=== PATIENT | female | born 1960 | race Caucasian/White ===

== ENCOUNTER → 2022-05-27 | Outpatient (CLI) | payer MEDICARE, SELFPAY | END | disposition home or self-care (01) | LOC: LABSPEC 10:24 | PROVIDERS: PCP Internal Medicine; Referring Provider Internal Medicine; Visit Provider Internal Medicine | DX: R05.9 Cough, unspecified (principal) | CPT/HCPCS: 87635; U0003; U0005 ==

== ENCOUNTER → 2022-06-02 | Outpatient (CLI) | payer MEDICARE, SELFPAY ==
--- NOTE | 2022-06-02 18:42 | CT_ITS ---
STUDY: LOW DOSE CT LUNG CANCER SCREENING REASON FOR EXAM: Female, 61 years old. Screening for lung cancer. RADIATION DOSAGE (If Supplied By Facility): CTDIvol = ( 2.01 ) mGy, DLP = ( 73.99 ) mGycm TECHNIQUE: No contrast was administered. Low dose technique was utilized (average mAS-38 and kVp 120). 1.25 mm axial source images with a slice interval of 1.25-mm were reconstructed in lung windows. 2.5 mm axial source images with a slice interval of 2.5-mm were reconstructed in lung windows. 5.0 mm axial source images with a slice interval of 5.0-mm were reconstructed in soft tissue windows. COMPARISON: None. NODULES: Nodule #: 1 Density: Ground glass Lung location: Right upper lobe: 0 point cm from pleura Location in series: Series Number: 2 Image: 1 Size - D1 x D2 mm: 5 x 5 mm: 5 mL average diameter Margin: Ill-defined Shape: Rounded Calcification: No Fat: No Temporal comparison: None Total lung nodules (excluding granulomas): 1 Emphysema: Diffuse emphysematous changes throughout the lungs. Endobronchial lesion: No Aorta: Normal CORONARY ARTERIES: Coronary artery calcification none Heart: Normal Pulmonary artery: Normal Mediastinal nodes: None Other chest and abdominal findings: Degenerative change of the thoracic spine. CT/Low Dose CT Lung Screening IMPRESSION: Lung-RADS category 2 - Continue annual screening with LDCT in 12 months. IMPORTANT NOTES FOR USE: ACR Lung-RADS Version 1.1 Assessment Categories Release Date: 2018 Category: Coded 0-4 bases on nodule(s) with highest degree of suspicion. Negative screen is defined as categories 1 and 2; a positive screen is defined as categories 3 and 4. Category 3 and 4A nodules that are unchanged on interval CT should be coded as category 2, and individuals returned to screening in 12 months. Category 4X: Category 3 or 4 nodules with additional imaging findings that increase the suspicion of lung cancer, such as spiculation, GGN that doubles in size in 1 year, enlarged lymph notes, etc. Category Modifiers: S (significant finding unrelated to lung cancer) Electronically Signed: Seven Ortiz DO at 23:04 EDT Reading Location ID and State: [facility] Tel [phone], Service support ,
== END | disposition home or self-care (01) ==
PROVIDERS: PCP Internal Medicine; Visit Provider Internal Medicine
DX: Z12.2 Encounter for screening for malignant neoplasm of respiratory organs (principal); Z87.891 Personal history of nicotine dependence
CPT/HCPCS: 71271

== ENCOUNTER → 2022-06-20 | Outpatient (CLI) | payer MEDICARE, SELFPAY ==
[2022-06-20 11:55] LABS: Absolute Lymphocyte Count 1.46 X10^3/uL (0.83-4.51); Absolute Neutrophil Count 1.6 X10^3/uL (2.0-7.7); Basophil# 0.04 X10^3/uL; Basophil% 1.2 % (0-1); Eosinophil# 0.04 X10^3/uL; Eosinophils% 1.2 % (0-5); Hematocrit 39.6 % (37-47); Lymphocyte # 1.46 X10^3/ul (0.83-4.51); Lymphocyte % 42.3 % (19-41); Mean Corp Hgb Conc 32.8 g/dL (32-36); Mean Corpuscular Hgb 31.6 pg (27.0-32.0); Mean Corpuscular Volume 96.4 fL (81-99); Mean Platelet Vol. 10.5 fl (6.2-12.0); Monocyte% 8.7 % (0-10); NRBC Flagged by Analyzer 0 % (0-5); Neutrophil % 46.3 % (47-70); Platelet Count 179 K/mm3 (150-450); RBC Distribution Width CV 12.8 % (11.6-14.6); RBC Distribution Width SD 45.4 fl (35.1-43.9); Red Blood Count 4.11 M/mm3 (4.2-5.4); White Blood Count 3.5 K/mm3 (4.4-11.0)
[2022-06-20 12:25] LABS: ALB/GLOB Ratio 1.2 RATIO (0.9-2.4); AST(SGOT) 13 U/L (15-37); Alanine Aminotransfer ALT/SGPT 21 U/L (13-56); Albumin, Serum 3.5 g/dL (3.2-5.0); Alkaline Phosphatase 72 U/L (45-117); Anion Gap 5 (5-15); BUN 14 mg/dL (7-18); BUN/Creat Ratio 20.7 RATIO (10-20); Calcium,Total 8.8 mg/dL (8.5-10.1); Chloride 105 mmol/L (98-107); Cholesterol 274 mg/dL (200); Creatinine, Serum 0.68 mg/dL (0.55-1.02); EST Glomerular Filtration Rate 94 mL/min (>60); Est Glom Filt Rate - Afr Amer 114 mL/min (>60); Glucose 92 mg/dL (74-106); High Density Lipoprotein 134 mg/dL; Potassium 4.2 mmol/L (3.5-5.1); Protein, Total 6.5 g/dL (6.4-8.2); Sodium Level 140 mmol/L (136-145); Thyroid Stim Hormone (TSH) < 0.01 uIU/mL (0.358-3.74); Triglycerides 43 mg/dL; Very Low Density Lipoprotein 9 mg/dL (5-40)
== END | disposition home or self-care (01) ==
LOC: BIMLAB 09:23
PROVIDERS: PCP Internal Medicine; Visit Provider Internal Medicine
DX: E89.0 Postprocedural hypothyroidism (principal); F32.1 Major depressive disorder, single episode, moderate; F41.9 Anxiety disorder, unspecified
CPT/HCPCS: 36415; 80053; 80061; 84443; 85025

== ENCOUNTER → 2022-09-25 | Outpatient (CLI) | payer MEDICARE, SELFPAY ==
--- NOTE | 2022-09-25 11:58 | RAD_ITS ---
STUDY: X-RAY - LEFT FOOT CLINICAL: Female, 61 years old. Foot pain, assess for navicular stress fracture TECHNIQUE: 3 view(s) of the foot. COMPARISON: None. FINDINGS: There is an enthesophyte involving the posterior superior calcaneus at the site of insertion of the Achilles tendon. Normal visualized subtalar, talonavicular, calcaneocuboid, tarsal and tarsometatarsal articulations. There is demineralization of the metatarsi. Normal metatarsophalangeal joint of the great toe. Normal tibial and fibular sesamoid bones. Normal interphalangeal joint of the great toe. Normal phalanges of the great toe. Normal second through fifth metatarsophalangeal joints. Normal interphalangeal joints and phalanges of the lesser toes. The soft tissue structures are unremarkable. RAD/Foot min 3 Views IMPRESSION: No visualized acute fracture. If, There is concern for occult or stress fracture recommend consideration for follow-up MRI. Electronically Signed: Homa Johnson MD at 23:10 EST Reading Location ID and State: [facility] / [place] Tel , Service support ,
[2022-09-25 12:32] LABS: ALB/GLOB Ratio 1.2 RATIO (0.9-2.4); AST(SGOT) 20 U/L (15-37); Alanine Aminotransfer ALT/SGPT 24 U/L (13-56); Albumin, Serum 3.6 g/dL (3.2-5.0); Alkaline Phosphatase 69 U/L (45-117); Anion Gap 3 (5-15); BUN 8 mg/dL (7-18); BUN/Creat Ratio 12.2 RATIO (10-20); Chloride 104 mmol/L (98-107); Cholesterol 250 mg/dL (200); Creatinine, Serum 0.66 mg/dL (0.55-1.02); EST Glomerular Filtration Rate 97 mL/min (>60); Est Glom Filt Rate - Afr Amer 117 mL/min (>60); Globulin 3.1 g/dL (2.2-4.2); Glucose 90 mg/dL (74-106); High Density Lipoprotein 150 mg/dL; Potassium 4.8 mmol/L (3.5-5.1); Protein, Total 6.7 g/dL (6.4-8.2); Sodium Level 138 mmol/L (136-145); Thyroid Stim Hormone (TSH) < 0.01 uIU/mL (0.358-3.74); Triglycerides 69 mg/dL; Very Low Density Lipoprotein 14 mg/dL (5-40)
[2022-09-25 14:44] LABS: T4 Free Direct 0.86 ng/dL (0.76-1.46)
[2022-09-25 14:53] LABS: T3 Total - Triiodothyronine 0.96 ng/mL (0.6-1.81)
== END | disposition home or self-care (01) ==
PROVIDERS: PCP Internal Medicine; Referring Provider Internal Medicine; Visit Provider Internal Medicine
DX: M79.672 Pain in left foot (principal); E89.0 Postprocedural hypothyroidism; E78.2 Mixed hyperlipidemia
CPT/HCPCS: 36415; 73630; 80053; 80061; 84439; 84443; 84480

== ENCOUNTER → 2023-01-20 | Outpatient (CLI) | payer MEDICARE, SELFPAY ==
[2023-01-26 15:57] LABS: HPV APTIMA, High Risk Negative (Negative)
== END | disposition home or self-care (01) ==
LOC: LABSPEC 10:04
PROVIDERS: PCP Internal Medicine; Visit Provider Nurse Practitioner Women's Health
DX: Z12.4 Encounter for screening for malignant neoplasm of cervix (principal)
CPT/HCPCS: 87624; 88175; G0145

== ENCOUNTER → 2023-01-29 | Outpatient (CLI) | payer MEDICARE, SELFPAY ==
--- NOTE | 2023-01-29 10:13 | BI_ITS ---
MAMMOGRAPHY - BILATERAL SCREENING REASON FOR EXAM: Female, 62 years old. Routine annual screening examination. PERTINENT HISTORY: Non-contributory. History of bilateral excisional breast biopsies. TECHNIQUE: Digital bilateral breast carolyne (3D mammographic acquisition) in the CC and MLO projections. 2-D mediolateral oblique (MLO) and craniocaudad (CC) views of both breasts were obtained. CAD: Full Field Digital Mammography with Computer Added Detection was performed. COMPARISON: No comparison mammograms available at this time. If any prior films become available, an addendum to this report can be generated. FINDINGS: Breast Composition: The breasts are heterogeneously dense, which may obscure small masses. There are no dominant masses or suspicious calcifications. No other significant abnormalities are identified. BI/SCRN MAMM (CAD)W/CAROLYNE BILAT IMPRESSION: Negative screening mammogram. Yearly followup mammogram recommended. (A) ASSESSMENT CATEGORY: BIRADS Category 1: Negative. A letter regarding these results will be sent to the patient by the facility within 30 days. Approximately 10% of breast cancers are not detected by mammography. A normal mammogram should not delay biopsy of a clinically suspicious abnormality. [id number] Electronically Signed: Velasquez Burk MD at 12:21 EDT ,
--- NOTE | 2023-01-30 10:38 | PFT ---
INTRODUCTION: The patient is a 62-year-old female that presents for pulmonary function studies secondary to a diagnosis of emphysema. Respiratory therapy reported good patient effort. Bronchodilators were used during testing. INTERPRETATION: Forced expiration spirometry demonstrates no evidence of a large airways obstructive ventilatory defect. There was no significant response to aerosolized bronchodilators. Spirograms are of good quality and plateau normally. Body plethysmography was performed and revealed lung volumes to be within normal limits. Diffusing capacity by single breath CO was also within normal limits. IMPRESSION: Grossly normal pulmonary function studies.
== END | disposition home or self-care (01) ==
PROVIDERS: PCP Internal Medicine; Referring Provider Nurse Practitioner Women's Health; Visit Provider Nurse Practitioner Women's Health
DX: Z12.31 Encounter for screening mammogram for malignant neoplasm of breast (principal); J43.9 Emphysema, unspecified
CPT/HCPCS: 77063; 77067; 94060; 94726; 94729

== ENCOUNTER → 2023-03-30 | Outpatient (CLI) | payer MEDICARE, SELFPAY | END | disposition home or self-care (01) | LOC: BIMLAB 10:23 | PROVIDERS: PCP Internal Medicine; Referring Provider Internal Medicine; Visit Provider Internal Medicine | DX: E89.0 Postprocedural hypothyroidism (principal) | CPT/HCPCS: 36415; 84443 ==

== ENCOUNTER 2023-06-03 08:00 | Outpatient (RCR) | payer MEDICARE, SELFPAY ==
--- NOTE | 2023-06-03 09:00 | BH.SGPN.GN ---
Behaviors/Verbalizations/Mental Status: []Pt eye contact good, neat and casually dressed, motor activity appropriate, speech normal rate and tone, mood anxious, congruent affect, thoughts linear and intact, no evidence of delusions or hallucinations. Per pt's symptom tracker, no risks noted. Client Response/Progress/Benefit: []Pt responded well to session, new to IOP tx. Pt reports feeling nervous this morning due to starting IOP. Pt's check-in was short and pt shared that she wants to work on reducing her anxiety the most while in IOP. Pt shared she is anxious about figuring out how to schedule everything around IOP. Pt appeared to benefit from peers comments and feedback on adjusting to IOP. Pt will continue IOP tx to prevent decompensation, improve daily functioning, and reduce isolation. Narrative Note: []
--- NOTE | 2023-06-03 11:00 | BH.NA ---
Physical Data Vital Signs Pulse Rate: 51 Blood Pressure: 123/67 Height/Weight Height: 1.69 m Weight:: 68.039 kg Weight in Pounds: 150.0 lbs Current Medication Compliance Medication Compliance Do you take your medication as prescribed?: Yes Nutritional History Appetite Nutritional Instructions: Describe your appetite:: Good Additional nutritional information:: Client states she gained weight last year when she stopped smoking, and states she has lost the weight she gained. Functional Assessment Sleep Pattern Describe any problems with sleeping: Client states she sleeps about 8 hours per night with the use of Trazodone. Sensory/Communication Assess Vision Problems Do you have any vision problems?: Glasses Communication Problems Do you have difficulty understanding what people are saying?: No Medical Problems/History Respiratory Conditions Respiratory: Other (See comments) (mild emphysema) Neurological Conditions Neurological: Headaches Metabolic Conditions Metabolic: Hypothyroidism Gastrointestinal Conditions Gastrointestinal: Other (See comments) (IBS, history of a bowel obstruction) Musculoskeletal Conditions Musculoskeletal: Other (See comments) (rosacea, carpel tunnel, fibromylagia, osteopenia) Family History Family History Father Alcoholism Cancer bladder Hypertension Mother Arthritis Osteoporosis Daughter Bipolar 1 disorder Additional History Additional comments:: ADD, OCD, bipolar disorder, PTSD Surgical History Surgical History Have you had any surgeries? If so, list type and date:: Yes (sinus, thyroidectomy, breast biopsy, x2, back, LASIK, tubal) Substance Abuse Substance Abuse Please describe substance abuse in the last 30 days:: Client states she currently drinks alcohol about 2 times per week, and when she drinks she has about 2-3 glasses of wine. Client states she previously use cigarettes but quit smoking about 10 months ago. Client denies substance use. Client states she drinks 4-5 caffeinated drinks per day, usually coffee and tea. Mental Status Summary Mental Status Significant Findings/Observations on Appearance and Mood:: Client is alert and oriented x 4. Client is casually groomed with good hygiene. Client is cooperative with assessment. Client makes good eye contact. Client's voice has normal rate and volume. Client has appropriate affect. Client makes logical associations and has normal processing. Client denies delusions/hallucinations. Client states she has had some fleeting SI in the last couple of weeks, but denies SI at this time. Suicide Assessment Suicidal Ideation Are you currently or have you been suicidal in the past?: Yes Suicidal Intentional Rating Scale (SIRS): Current suicidal thoughts/No plan/Contracts for safety (fleeting SI at times, denies plan/intent) Physician Notification Past Psychiatric History MH Treatment Hx Past Psychiatric Medications:: Abilify, Seroquel, Prozac, Depakote Age of first mental health symptoms: Client states she was first on medication for depression at age 27 after her first daughter. Client states she was diagnosed as bipolar in her early 50's, but states looking back she knows she had symptoms of bipolar in her 20's. Describe (age, circumstance, etc) any past hospitalizations: 2017 and 2018 for SI. February 2022 at [facility] after her daughter had her first manic episode. Client had a suicide attempt in 1996 while on Prozac 9 years after her daughter was born. Current providers for mental health treatment (counselor, psychiatrist, case management social worker, etc.): Dr. Link. Client is currently starting care at [facility] to do EMDR. Fall Risk Assessment Age Age: 60-70 Mental Status Mental Status: Willing & able to ask for assistance when needed Physical Status Physical Status: No problems Impairments Impairments: None Elimination Elimination: Continent AND independent Gait or Balance Gait or Balance: Walks independently Hx of Falls History of falls in the past 6 months: No known history Medications/Substances Psychotropics:: Antidepressants and Antipsychotics Medications/substances used within the past 24 hours or ordered to administer: 1-2 of the medications/substances listed above Total Score Total Points:: 2 RN Summary of Impressions Impressions Recommendations Impressions: Psychiatric Issues: 1. Bipolar 1 disorder, most recent episode depression, severe without psychosis (F31.4) 2. PTSD 3. Generalized anxiety disorder 4. Rule out alcohol use disorder 5. Abnormal mouth movements, rule out tar dive dyskinesia Level of Care How do the client's current symptoms and functional deficits support need for this level of care?: Client was referred to [facility] by Dr. Link for increased anxiety and depression. Client has been living between [place] and [place], staying in [place] typically 6-8 weeks at a time and going to [place] where her and 2 grandchildren live for 2-3 weeks. Client states after her son was killed while he was having a manic episode in 2019, she wanted to be close to her remaining child (her daughter) so she started coming to [place] to stay with her. Client states she does have anxiety about going back and forth between the states, and often feels depressed while in [place] because she misses her and she is alone a lot while in [place]. Client reports some fleeting SI at times, but denies intent/plan. Client does report irritability, decreased motivation, and isolation. IOP will promote gains and prevent further decompensation while providing social support and skills training.
[2023-06-03 11:30] VITALS: BP 123/67; PULSE 51
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
--- NOTE | 2023-06-03 12:40 | BH.DR.ITP ---
Initial Treatment Plan Patient Information Visit Information: ADMISSION DATE: EXPECTED LOS: 4-6 weeks Problems/Symptoms Problem #1:: Depression Symptom:: Sadness, hopelessness, guilt, worthlessness, anhedonia, low energy, passive thoughts of , passive suicidal ideation Problem #2:: Anxiety Symptom:: Worry, rumination
--- NOTE | 2023-06-04 09:04 | BH.SGPN.GN ---
Behaviors/Verbalizations/Mental Status: [] Pt eye contact good, casually dressed, motor activity appropriate, speech normal rate and tone, mood depressed and anxious, congruent affect, thoughts linear and intact, no evidence of delusions or hallucinations. Per pt's symptom tracker, no report of SI, plan, or intent as of this date. Client Response/Progress/Benefit: [] Client responded well to session as evidenced by listening attentively to others and sharing thoughts and feelings. Client reported mental health positive as getting her vehicle fixed which has been a stressor. Additional win noted as not calling to cancel group from the day, indicating she had difficulties with feeling motivated to get here this morning. Noted that using opposite action helped her in doing so. Current stressor noted as having her meds recently be changed and discussed knowing it is a necessary change but feeling anxious it will not help. Shared openness to give it a try however. Seemed to benefit from support from peers. Client to continue IOP to continue to improve awareness of and use of healthy coping skills, maintain mood stability, and prevent decompensation. Narrative Note: []
--- NOTE | 2023-06-04 10:12 | BH.SGPN.GN ---
Behaviors/Verbalizations/Mental Status: []Pt alert and oriented, casually dressed and groomed. Eye contact good. Motor activity appropriate. Speech within normal limits. Affect flat, mood depressed. Thoughts linear, logical, no signs of hallucinations or delusions. Client Response/Progress/Benefit: []Pt was an active participant in group discussions. Attentive during psychoeducation on 4 types of conflict styles (Competing, Collaborating, Avoiding, and Accommodating). Worked with group to define conflict and identify how conflict is helpful. With peers identified barriers to addressing or managing conflict which included: not wanting to hurt others, lack of communication skills, and cognitive distortions. Pt believes they use the avoiding style the most. Pt shared that avoiding conflict often leads to internal conflict and rumination. Benefited from group due to increase insight and awareness of benefits to conflict, conflict styles, and obstacles to managing conflict. Will continue IOP tx to prevent decompensation, reduce isolation, and improve daily functioning. ? Narrative Note: []
--- NOTE | 2023-06-04 11:10 | BH.SGPN.GN ---
Behaviors/Verbalizations/Mental Status: [] Eye contact is good. Motor activity is appropriate. Appearance is casual. Speech is Appropriate. Mood is depressed. Affect is congruent. Thoughts are linear and logical. No evidence of psychosis. Client Response/Progress/Benefit: [] Pt was an active participant in group discussions and activity. Attentive during psychoeducation. Pt was engaged during the group activity and practiced conflict resolutions skills with an emphasis on stepping outside her typical conflict style. Along with peers was able to reflect on what conflict resolution skills she used during the activity. Pt chose to continue to work on the conflict resolution skill of expressing my feelings with words for the rest of the week. Benefited from practicing conflict resolution skills. Will continue in IOP to prevent decompensation, stabilize mood, increase healthy coping, and to improve functioning. Narrative Note: []
--- NOTE | 2023-06-05 09:00 | BH.SGPN.GN ---
Behaviors/Verbalizations/Mental Status: [] Pt alert and oriented, neatly dressed and groomed. Eye contact good. Motor activity appropriate. Speech within normal limits. Affect constricted, mood anxious. Thoughts linear, logical, no signs of hallucinations or delusions. Reviewed pt?s symptom tracker, no risk for suicidal ideation, plan, or intent 06/05/23 Client Response/Progress/Benefit: []Pt responded well to session, attentive and engaged. Pt reports feeling apprehensive this morning as pt has homework from her individual session to reach out to three people and pt is anxious. Pt knows that she will feel better after reaching out, but pt does not want to bother people. Pt able to reframe this thought. Pt's mental health wins today included practicing self-care last night by leaving her daughter's house instead of pushing through when pt noticed signs of a migraine. Pt also figured out a way to get to IOP today with her car getting fixed. Pt appeared to benefit from challenging perspective. Pt will continue IOP tx to prevent decompensation, improve daily functioning, and increase ability to challenge distortions. Narrative Note: []
--- NOTE | 2023-06-05 10:10 | BH.SGPN.GN ---
Behaviors/Verbalizations/Mental Status: [] Eye contact is good. Motor activity is appropriate. Appearance is casual. Speech is Appropriate. Mood is depressed. Affect is congruent. Thoughts are linear and logical. No evidence of psychosis. Client Response/Progress/Benefit: [] Pt was an active participant in group discussions. Attentive during psychoeducation. Participated in interactive discussion on types of support. Pt reports his support as violin, medications, library, her front porch, and her family. 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 Participated in experiential activity and was able to connect this activity to group topic. Benefited from increased awareness of the benefits and importance of maintaining a balanced support system. Will continue in IOP to prevent decompensation, increase healthy coping, and improve functioning. Narrative Note: []
--- NOTE | 2023-06-05 11:15 | BH.SGPN.GN ---
Behaviors/Verbalizations/Mental Status: []Client alert and oriented, casually dressed and groomed. Eye contact good. Motor activity appropriate. Speech within normal limits. Affect congruent, mood depressed and anxious. Thoughts linear, logical, no signs of hallucinations or delusions. Client Response/Progress/Benefit: [] Client was an active participant throughout AEB contributing to small group discussion, participating in the activity, and taking notes. Client provided input during discussion on the types of support our supports can provide. Able to identify the types of supports provided by current support system. Client reported gaining awareness that they could benefit from more social supports. Shared this will help to improve her mood and feel more connected/less isolated. Client identified steps to achieve this as continuing with IOP tx, finding somewhere to volunteer, and looking into local organizations. Client seemed to benefit from identifying the types of support and areas client could benefit from improving. Recommended to continue IOP tx to increase healthy coping, reduce depression, and improve overall functioning. Narrative Note: []
--- NOTE | 2023-06-09 09:00 | BH.SGPN.GN ---
Behaviors/Verbalizations/Mental Status: [] Pt alert and oriented, neatly dressed and groomed. Eye contact good. Motor activity appropriate. Speech within normal limits. Affect congruent, mood euthymic. Thoughts linear, logical, no signs of hallucinations or delusions. Reviewed pt?s symptom tracker, no risk for suicidal ideation, plan, or intent 06/09/23 Client Response/Progress/Benefit: []Pt responded well to session, attentive and engaged. Pt reports feeling challenged in a good way this morning as pt has some more goals she wants to accomplish and they give her some anxiety. Pt reports that over the weekend she completed 1/3 of her goals and pt feels good about this. Pt also looked over her IOP binder and learned about the cognitive distortions. Pt shared something clicked and pt felt like for the rest of the day she was able to reframe thoughts easily. Pt also helped her daughter reframe thoughts and her daughter was proud of pt. Pt stated she is anxious about keeping up with challenging her thoughts, but pt was receptive to feedback on being compassionate and realistic with herself. Pt appeared to benefit from reflecting on their application of coping skills. Pt will continue IOP tx to promote mood stability, reduce isolation, and improve daily functioning. Narrative Note: []
--- NOTE | 2023-06-09 10:14 | BH.SGPN.GN ---
Behaviors/Verbalizations/Mental Status: []Client alert and oriented, casually dressed and groomed. Eye contact good. Motor activity appropriate. Speech within normal limits. Affect congruent, mood depressed and anxious. Thoughts linear, logical, no signs of hallucinations or delusions. Client Response/Progress/Benefit: []Client receptive of session AEB providing input throughout, listening attentively to others, and taking notes. Attentive throughout psychoeducation on the cognitive triangle and maintenance cycles. Worked on identifying own vicious cycle. Engaged in group discussion reviewing the impact of daily activities and behaviors on either reinforcing unhealthy maintenance cycles and depression or assisting in reducing symptoms (?down? vs ?up? activities). Client identified common ?down? activities they engage in as: hitting the snooze button, social media, substance use, and diet. Common ?Up? activities client identified included: sitting on front porch, meal planning, calling someone, and washing dishes. Appeared to benefit from increased awareness of current behaviors and impact these have on mental health. Pt to continue IOP to increase healthy coping skills, challenge distortions, and prevent decompensation. Narrative Note: []
--- NOTE | 2023-06-09 11:10 | BH.SGPN.GN ---
Behaviors/Verbalizations/Mental Status: [] Eye contact is good. Motor activity is appropriate. Appearance is casual. Speech is Appropriate. Mood is depressed. Affect is flat. Thoughts are linear and logical. No evidence of psychosis. Client Response/Progress/Benefit: [] Pt responded well to session, attentive and engaged in group discussions and activity. Group shared having patience and being willing to re-evaluate helped the group be successful during activity. Group discussed values and the benefits that knowing one's values can have on one's mental health. Pt explored own values and identified family relationships, emotional health, spirituality, and physical well-being as top values. Pt set a goals meet with a friend linked with her spirituality, play music with friends, and reach out to friends to live according to values. Pt appeared to benefit from exploring values and creating a weekly goal. Will continue in IOP to prevent decompensation, increase healthy coping, and to improve functioning. Narrative Note: []
== END 2023-06-11 23:59 ==
LOC: BHIOP 08:00
PROVIDERS: PCP Internal Medicine; Referring Provider Psychiatry & Neurology Psychiatry; Visit Provider Psychiatry & Neurology Psychiatry
DX: F31.4 Bipolar disorder, current episode depressed, severe, without psychotic features (principal); F43.10 Post-traumatic stress disorder, unspecified; F41.1 Generalized anxiety disorder; R25.8 Other abnormal involuntary movements
CPT/HCPCS: S9480; 90837; 90853

== ENCOUNTER 2023-06-12 08:31 | Outpatient (RCR) | payer MEDICARE, SELFPAY ==
[2023-06-12 00:43] VITALS: BP 123/67; PULSE 51
--- NOTE | 2023-06-12 09:05 | BH.SGPN.GN ---
Behaviors/Verbalizations/Mental Status: [] Eye contact is good. Motor activity is appropriate. Appearance is casual. Speech is Appropriate. Mood is depressed. Affect is congruent. Thoughts are linear and logical. No evidence of psychosis. Reviewed daily check in sheet and no reports of suicidal ideations or intent. Client Response/Progress/Benefit: [] Pt participated when prompted. Attentive. Daily symptom tracker notes 5 for depression and anxiety. Mental health wins include playing the violin for an hour and accomplishing two mental health goals that she made with her therapist. Emotion for today is apprehensive. Stressors is being away from family in [place]. Tearful at times as she was discussing the of her son. Overall check in was brief. Progress noted as she is completing goals and putting effort into her mental health. Will continue in IOP to prevent decompensation, increase healthy coping skills, and improve functioning. Narrative Note: []
--- NOTE | 2023-06-12 10:10 | BH.SGPN.GN ---
Behaviors/Verbalizations/Mental Status: []Pt alert and oriented, casually dressed and groomed. Eye contact fair. Motor activity appropriate. Speech within normal limits. Affect constricted, mood dysthymic. Thoughts linear, logical, no signs of hallucinations or delusions. Client Response/Progress/Benefit: [] Pt receptive to session AEB contributing to small group discussion, as well as listening attentively to others, and taking notes. Worked with group to brainstorm the positive and negative aspects of stress on physical and mental health. Group did well to identify the benefits of stress as well as the impact of distress on performance, relationships, and mental health. Pt identified their personal top stressors as: grandchildren, food, and isolation. Pt seemed to benefit from increased awareness of current stressors and impact stress has on mental health. Recommended to continue IOP tx to increase healthy social support, increase healthy coping, and prevent decompensation.
--- NOTE | 2023-06-12 11:15 | BH.SGPN.GN ---
Behaviors/Verbalizations/Mental Status: []Pt alert and oriented, neatly dressed and groomed. Eye contact good. Motor activity appropriate. Speech within normal limits. Affect constricted, mood anxious. Thoughts linear, logical, no signs of hallucinations or delusions. Client Response/Progress/Benefit: []Pt was an active participant in group discussions and experiential activity. Attentive during psychoeducation on the 4 A's (Avoid, adapt, alter, accept) of coping with stress as well as strategies to identify stressors in which one has no control, little control, or a great deal of control over. Was able to identify the connection between the experimental activity and utilization of stress management skills. Pt reported feeling anxious during the activity and needing to utilize deep breathing to calm down. Benefited from increased awareness of stress management strategies. Will continue in IOP to promote mood stability, improve daily functioning, and reduce isolation. Narrative Note: []
--- NOTE | 2023-06-16 09:05 | BH.SGPN.GN ---
Behaviors/Verbalizations/Mental Status: []Pt alert and oriented, casually dressed and groomed. Eye contact good. Motor activity appropriate. Speech within normal limits. Affect congruent, mood euthymic and anxious. Thoughts linear, logical, no signs of hallucinations or delusions. Reviewed pt?s symptom tracker, no suicidal ideation reported, denies plan, or active intent as of 06/16/23. Client Response/Progress/Benefit: [] Pt responded well to session, open to processing with group and engaged. Pt reports feeling apprehensive this morning. Shared a current mental health ?win? as getting to spend time with her granddaughter swimming and at a campfire over the weekend. Discussed enjoying the one-on-one time which helped to improve her mood and be more present. Additional win noted as getting here this morning despite feeling tired from the long weekend. Described current stressor as finding meals she can regularly make for herself now that she is spending a percentage of her time living alone. Pt appeared to benefit from supportive feedback of the group, as well as reflecting on mental health wins. Pt will continue IOP tx to promote mood stability, improve self-confidence, and continue to improve functioning. Narrative Note: []
--- NOTE | 2023-06-16 10:10 | BH.SGPN.GN ---
Behaviors/Verbalizations/Mental Status: [] Client alert and oriented, neatly dressed and groomed. Eye contact fair. Motor activity appropriate. Speech within normal limits. Affect constricted, mood anxious. Thoughts linear, logical, no signs of hallucinations or delusions Client Response/Progress/Benefit: [] Client was an engaged participant in group discussion and experiential activity. Attentive during psychoeducation on resilience. Participated in interactive discussion with peers on the definition of resilience and where it comes from. Group identified what can impact resilience. Identified barriers to resilience to include: extreme thinking, outside comfort zone, learned helplessness, and repeated traumas/hardships. Worked well with peers in small group in which they identified factors that contribute to resilience. Stated when she is struggling with being resilient she tends to freeze and shut down. Benefited from increased awareness of resilience and the factors that contribute to building resilience. Will continue in IOP to increase socialization, challenge distortions, and prevent decompensation.
--- NOTE | 2023-06-16 11:10 | BH.SGPN.GN ---
Behaviors/Verbalizations/Mental Status: []Pt alert and oriented, neatly dressed and groomed. Eye contact good. Motor activity appropriate. Speech soft. Affect congruent, mood euthymic. Thoughts linear, logical, no signs of hallucinations or delusions. Client Response/Progress/Benefit: []Pt responded well to session AEB completing the resilience worksheet provided. Pt actively participated in the discussion and worked cooperatively with group to identify strategies to enhance each of the components discussed. Pt reports belief they already use resilience trait of ?accepting that change is a part of living and ?moving towards your goals.? Pt discussed that they could work on keeping things in perspective and taking decisive action.? Pt seemed to benefit from discussing strategies for improving personal resilience and identifying resilience traits Pt already possesses. Will continue IOP tx to combat distorted thoughts, improve daily functioning, and improve mood stability. Narrative Note: []
--- NOTE | 2023-06-16 14:36 | BH.MDN_ITS ---
Multi-Disciplinary Note Note 30-min Individual: Time Started:: 12:15 Date: 06/16/23 Purpose of session/treatment goals addressed:: Purpose of session was to address goals 1 and 2 from M[facility]. Eye Contact:: Fair Motor Activity:: Appropriate Appearance:: Casual Speech:: Appropriate Mood:: Anxious and Depressed Affect:: Congruent Thoughts:: Linear, Logical and No evidence of hallucinations/delusions noted Staff Interventions:: thought challenging, psychoeducation on: (anxiety), CBT techniques, strengths perspective, goal setting and taught coping skills Client Response:: Pt stated she is struggling after resilience group because she is realizing she doesn?t exhibit many traits that help improve resilience. Pt became tearful when discussing that she no longer is a confident person that used to exhibit all the resilience traits. Pt stated she can pinpoint her decline after her son . She reported she hasn?t ever gotten back to how she used to be before his . Pt reported she used to enjoy be social, was confident, sure of herself, and easily engaged with others. Pt stated her anxiety keeps her from engaging in social activities. Pt stated she was going to attend [employer] at the [facility] last week, but her anxiety kept her from going. Pt reported instead of going to [employer] she did choose to play the violin which is something she hasn't done since March. Pt recognizes her anxious thoughts continue to keep her from doing something new and from being social. Connected with psychoeducation about how avoidance of anxious symptoms often increases anxiety. Pt reported prior to her son dying she did not struggle with social anxiety. Pt stated she can't go to the [facility] [place] because she has to help her daughter in the evening. Pt reported there is another meeting in a couple weeks that she will plan to go to. Pt reported over the weekend she signed up for a [facility] membership. Pt stated she does plan to go to sliver sneakers class at the [facility]. Pt reported her goal is to go to a gym class two times each week. Pt stated this week she would like to go to the euchre session offered at the [facility]. Reported she is anxious about going because she doesn't know how to play euchre. Pt agreed it could be helpful to watch a video about the rules before she goes. Pt reported she could ask for help from others. Pt agreed starting an accomplishment journal could be helpful to improve her positive thinking. Risks/Concerns:: Denies suicidal ideation, plan or intention to date. Progress Toward Goals/Plan:: Progress noted with client reporting getting back involved playing her violin and plans of getting back involved in the gym. Client continues to struggle with engaging in new situations like going to bingo due to her anxious thoughts others will superior court judge her. Client having hard time giving herself credit and will work on starting to be kinder to herself. Client is to continue IOP to decrease social anxiety, challenge distorted thoughts, and prevent decompensation. Time Stopped:: 12:45
--- NOTE | 2023-06-18 09:10 | BH.SGPN.GN ---
Behaviors/Verbalizations/Mental Status: [] Eye contact is good. Motor activity is appropriate. Appearance is casual. Speech is Appropriate. Mood is anxious. Affect is congruent. Thoughts are linear and logical. No evidence of psychosis. Reviewed daily check in sheet and no reports of suicidal ideations or intent. Client Response/Progress/Benefit: [] Pt participated at times during the group discussion. Attentive. Emotion for today in anxious. She mental health wins and improved mood. She has started to complete self-care more consistency as she attended a yoga session yesterday. She also discussed some recent and upcoming events that have increased her sense of purpose which positively impacted her thoughts and perspectives. Progress noted per pt report. Benefited from group support, encouragement, and feedback. Will continue in IOP to prevent decompensation, stabilize mood, and improve functioning. Narrative Note: [] Behaviors/Verbalizations/Mental Status: [] Eye contact is good. Motor activity is appropriate. Appearance is casual. Speech is Appropriate. Mood is anxious. Affect is congruent. Thoughts are linear and logical. No evidence of psychosis. Reviewed daily check in sheet and no reports of suicidal ideations or intent. Client Response/Progress/Benefit: [] Pt participated at times during the group discussion. Attentive. Emotion for today in anxious. She mental health wins and improved mood. She has started to complete self-care more consistency as she attended a yoga session yesterday. She also discussed some recent and upcoming events that have increased her sense of purpose which positively impacted her thoughts and perspectives. Progress noted per pt report. Benefited from group support, encouragement, and feedback. Will continue in IOP to prevent decompensation, stabilize mood, and improve functioning. Narrative Note: []
--- NOTE | 2023-06-18 10:14 | BH.SGPN.GN ---
Behaviors/Verbalizations/Mental Status: []Eye contact is good. Alert and oriented. Motor activity is appropriate. Appearance is casual. grooming is appropriate. Speech is Appropriate. Mood is euthymic and anxious. Affect is congruent. Thoughts are linear and logical. No evidence of psychosis or hallucinations. Client Response/Progress/Benefit: []Client was an active participate AEB providing contributions, listening attentively to others, and taking notes throughout. The group identified the impact of emotions on communication such as blaming or externalizing, shutting down, misperceiving the communication, lashing out, and not being able to express oneself. During group activity, client identified feeling anxious and guilty when another peer was walking with their eyes closed and bumped into an object. Pt reflected she did not want him to get hurt but also did not want to prevent him from continuing to complete the task or say something to soon. Provided insight that situations in which she has limited control often leads to increased anxiety and that she tends to personalize things which reinforce her guilt. Client benefited from session by gaining an increased understanding on the importance of managing emotions to continue IOP to further improve mood stability, improve use of skills for better symptom management, and prevent decompensation. Narrative Note: []
--- NOTE | 2023-06-18 11:10 | BH.SGPN.GN ---
Behaviors/Verbalizations/Mental Status: []Pt alert and oriented, casually dressed and groomed. Eye contact fair. Motor activity appropriate. Speech within normal limits. Affect constricted, mood dysthymic. Thoughts linear, logical, no signs of hallucinations or delusions. Client Response/Progress/Benefit: [] Pt engaged in session AEB pt listening attentively to peers and providing input. Attentive during psychoeducation on 4 zones of regulation. Pt able to identify feelings and behaviors for each zone. Pt identified coping skills one can use to support self in each zone. Reported skills will practice when needs to manage emotions include: take a walk, music, cleaning, and pray/meditate. Benefited from increased education on zones of regulation or stages of alertness for emotions and healthy coping skills to use for each zone. Pt to continue IOP to improve daily functioning, increase socialization, and prevent decompensation.
--- NOTE | 2023-06-22 09:05 | BH.SGPN.GN ---
Behaviors/Verbalizations/Mental Status: [] Pt alert and oriented, neatly dressed and groomed. Eye contact good. Motor activity appropriate. Speech within normal limits. Affect constricted, mood sad. Thoughts linear, logical, no signs of hallucinations or delusions. Reviewed pt?s symptom tracker, no risk for suicidal ideation, plan, or intent 06/22/23 Client Response/Progress/Benefit: []Pt responded well to session, attentive and engaged. Pt reports feeling optimistic this morning but also pt is missing her family in [place]. Pt lives in both [place] and [place], traveling back and forth throughout the year. Pt's and some of her grandkids are there, so pt wants to call them this week even though pt is nervous about this. Pt shared over the weekend she went to a new exercise class and pt spent time with her granddaughter and felt more present. Pt appeared to benefit from normalizing feeling multiple emotions at once and from setting a goal to call her family this week. Pt will continue IOP tx to prevent decompensation, improve daily functioning, and further improve self-compassion. Narrative Note: []
--- NOTE | 2023-06-22 11:15 | BH.SGPN.GN ---
Behaviors/Verbalizations/Mental Status: []Pt alert and oriented, casually dressed, appropriately groomed. Eye contact good. Motor activity appropriate. Speech within normal limits. Affect congruent, mood depressed. Thoughts linear, logical, no signs of hallucinations or delusions. Client Response/Progress/Benefit: []Pt was engaged during discussion and willing to complete the worksheet challenging them to develop a personal SMART goal. Pt chose the goal of taking a walk 3x this week. Pt stated this will benefit them by improving their mood and providing opportunities to meet new people in the neighborhood. Pt identified barriers which included feeling too tired or unmotivated and bad weather. Identified for feeling unmotivated she can use reminding herself of the benefits, as well as opposite action. Pt receptive to identifying solutions for these barriers and willing to begin working on this goal. Benefited from this group by developing a short-term SMART goal related to mental health. Will continue IOP to continue to promote use of healthy coping skills, decrease anxiety and depression through improved self-care, and prevent decompensation. Narrative Note: []
--- NOTE | 2023-06-22 15:40 | BH.MDN_ITS ---
Multi-Disciplinary Note Note 45-min Individual: Time Started:: 10:00 Date: 06/22/23 Purpose of session/treatment goals addressed:: Purpose of session was to address goals 1 and 2 from [facility]. Eye Contact:: Fair Motor Activity:: Appropriate Appearance:: Neat Speech:: Appropriate Mood:: Dysthymic Affect:: Constricted Thoughts:: Linear, Logical and No evidence of hallucinations/delusions noted Staff Interventions:: thought challenging, CBT techniques, strengths perspective and other (reviewed personal anxious cycle) Client Response:: Client reported she went to the gym two times which was one of her goals from last session. Client reported she did not go play [employer] but instead played her violin. Client reported she did complete accomplishment journal which she could find some benefit to identify the thing she did complete. Client reported she continues to find herself feel overwhelmed when she's watching her grandchildren especially when they get too loud. Client stated she has been trying to use like in the moment call main skills To manage anxiety in the moment. Client stated she is struggling with being away from her for so long but doesn't see the possibility of this situation changing out of anxiety about her daughter. Client stated she is too anxious that her daughter will go into another manic episode and client wants to be close by in order to be helpful. Client stated her is working on renting out parts of their ranch so that he can move to [place] from [place] but this is a very slow process. Client stated her daughter had a manic episode last spring and was hospitalized and client feels worried if she were to move back to her home in [place] that something bad will happen to her daughter just like something bad happened to her son when he was in a manic episode. Client reported she does continue to struggle with avoidance of anxious situations. Client shared one of her neighbors call to invite client to go to a birthday democrat for somebody in their neighborhood but client immediately said no because she was anxious. Client worked with therapist to create her anxious cycle and client was able to recognize that her anxious thoughts let her to miss out on an opportunity which she could have connected with people. Client stated after reflecting on the situation she realizes this happens frequently in which she allows her initial anxiety to keep her stuck in her house when one of her main complaints is feeling lonely. Client reported she will start to be more mindful of her immediate no answer. Risks/Concerns:: Client denies suicidal ideation, plan, or intention to date. future oriented. Progress Toward Goals/Plan:: Progress noted with client reporting getting out of her house to go to the gym and starting to work on an accomplishment journal. Client's anxious symptoms continue to impact her ability to engage in social activities that could help decrease her loneliness. Client stated she wants to discharge from [facility] this week because she realizes she knows the skills but just needs to use them. Client stated she believes continuing her individual counseling will be sufficient and keeping her accountable to use the skills that she already knows. Client stated she is appreciative of what she's learned in [facility] so far but feels like it would be helpful to save money by just continuing with one-on-one counseling. Therapist expressed some concern of discharging early from program but encouraged client to discuss this with their outpatient counselor that they meet with this week. Client stated she will talk to her outpatient therapist and she will make a decision this week. Time Stopped:: 10:55
--- NOTE | 2023-06-23 09:05 | BH.SGPN.GN ---
Behaviors/Verbalizations/Mental Status: [] Eye contact is good. Motor activity is appropriate. Appearance is casual. Speech is Appropriate. Mood is anxious. Affect is congruent. Thoughts are linear and logical. No evidence of psychosis. Reviewed daily check in sheet and no reports of suicidal ideations or intent. Client Response/Progress/Benefit: [] Pt participated at times during the group discussions. Attentive. Emotion for today is content. Shared that she was able to step out of comfort zone yesterday and went to local fair. Feels more engaged and connected to others which has been beneficial for her overall mental health. She also has been more active and engaged in social outlets as well as exercise. Notes anxiety today about taking her granddaughters to medical appointments. She discussed the anxiety and negative thoughts that occur when she has to drive to places she has never been. Overall pt notes progress AEB by being more engaged and active this past week. Beneifted from group support, encouragment, and feedback. Will continue in IOP to prevent decompensation, stabilize mood, and improve functioning. Narrative Note: []
--- NOTE | 2023-06-23 10:20 | BH.SGPN.GN ---
Behaviors/Verbalizations/Mental Status: []Pt alert and oriented, casually dressed and groomed. Eye contact good. Motor activity appropriate. Speech within normal limits. Affect congruent, mood anxious and dysthymic. Thoughts linear, logical, no signs of hallucinations or delusions. Client Response/Progress/Benefit: []Pt was an active participant, AEB taking notes and providing input in group discussions and activities. Attentive during psychoeducation. Pt engaged during interactive discussion in which the group defined self-care and discussed its benefits. Group discussed barriers to engaging in self-care. Pt identified personal barrier of guilt or limited motivation/energy. Pt participated in small groups where they worked to identify common self-care ?myths?. Benefited from increased awareness of self-care, its benefits, and the consequences of not utilizing self-care strategies. Will continue IOP tx to prevent decompensation, promote healthy coping skill application, and continue to improve mood. Narrative Note: []
--- NOTE | 2023-06-23 11:15 | BH.SGPN.GN ---
Behaviors/Verbalizations/Mental Status: []Pt alert and oriented, neatly dressed and groomed. Eye contact good. Motor activity appropriate. Speech within normal limits. Affect constricted, mood depressed. Thoughts linear, logical, no signs of hallucinations or delusions. Client Response/Progress/Benefit: [] Pt engaged participant AEB completing self-assessment worksheet and providing input throughout discussion. Pt completed worksheet identifying current self-care practices and what self-care activities pt wants to start using. Pt selected physical self-care to begin practicing more consistently. Pt plans to do this by going for more walks and cooking more meals at home. Appeared to benefit from completing the self-care evaluation and gaining insights into current self-care practices, as well as identifying areas in which pt would like to improve upon.? Pt will continue IOP tx to promote mood stability, increase self-compassion, and reduce negative thinking patterns. Narrative Note: []
--- NOTE | 2023-06-25 09:05 | BH.SGPN.GN ---
Behaviors/Verbalizations/Mental Status: []Pt alert and oriented, casually dressed and groomed. Eye contact good. Motor activity appropriate. Speech within normal limits. Affect congruent, mood euthymic. Thoughts linear, logical, no signs of hallucinations or delusions. Reviewed pt?s symptom tracker, no suicidal ideation reported, denies plan, or active intent as of 06/25/23. Client Response/Progress/Benefit: []Pt responded well to session, attentive and engaged. Pt reports feeling happy this morning as pt and her outpatient therapist are noticing progress. Pt shared she has been going through her IOP binder and finds this helpful. Pt also is actively using calming skills, boundary setting, and thought challenging. Pt shared her stressor right now is that she has a lot of new things I'm juggling and pt also misses her family in [place]. Pt appeared to benefit from connecting with peers and reflecting on healthy coping skills they could use. Pt will continue IOP tx to reinforce healthy coping skills, further improve daily functioning, and combat distortions. Narrative Note: []
--- NOTE | 2023-06-25 10:15 | BH.SGPN.GN ---
Behaviors/Verbalizations/Mental Status: [] Eye contact is good. Motor activity is appropriate. Appearance is casual. Speech is Appropriate. Mood is anxious/irritable. Affect is congruent. Thoughts are linear and logical. No evidence of psychosis. Client Response/Progress/Benefit: [] Pt participated in group discussions. Attentive during psychoeducation AEB note taking. Engaged during interactive discussion on the benefits vs disadvantages to anger, common ways that individuals express anger, and how anger can impact one's mental health. Group members brainstormed common internal and external triggers associated with anger which included; poor communication, being ignored, being disrespected, lack of personal follow-through with a task, laziness, dishonesty, injustice, falling short of one's goals, uncertainty, etc. Benefited from increased understanding of anger, internal/external triggers, and the impact that the anger cycle can have on anxiety and depression. Will continue in IOP to prevent decompensation, increase healthy coping skills, and to improve functioning. Narrative Note: []
--- NOTE | 2023-06-25 11:15 | BH.SGPN.GN ---
Behaviors/Verbalizations/Mental Status: []Client alert and oriented, casually dressed and groomed. Eye contact good. Motor activity appropriate. Speech within normal limits. Affect congruent, mood euthymic. Thoughts linear, logical, no signs of hallucinations or delusions. Client Response/Progress/Benefit: []Pt was attentive throughout AEB contributing at times to small group discussion and self-reflection. Group finished processing cues to anger worksheet. Pt worked on completing own anger cycle. Pt completed personal anger cycle. Identified triggering event, negative thoughts, emotional response, physical symptoms, and behavioral response. Pt attentive as group brainstormed healthy coping skills for better managing anger which included: music, walking/exercise, taking a break, grounding tools, reflection, and journaling. Pt worked in small groups to identify ways could interrupt her anger cycle. Stated she wants to work on challenge negative thoughts to interrupt her anger cycle. Pt appeared to benefit from identifying different techniques to manage anger as well as gaining awareness of potential consequences of unmanaged anger. Pt reports significant treatment progress and is to discharge from [facility] today.
--- NOTE | 2023-06-25 14:02 | BH.DS ---
Discharge Summary Demographics Date of Admission:: 06/03/23 Discharge Date: 06/25/23 Presenting Problems at Admission:: Patient is a 62-year-old female with a history of bipolar 1 disorder, PTSD, anxiety and traumatic brain injury who was referred to the [facility] behavioral health IOP program by her psychiatrist Dr. Link. The patient complains of worsening depression and anxiety for the past year which has worsened again in the past few months. Patient's current stressors include living in 2 places now. Pt lives in [place] for 6-8 weeks at a time to help with her grandchildren and lives in [place] with her for about 3 weeks. The patient has a history of having a son who was killed by police while manic and suicidal on her [place] in [place] in November 2019. In February 2022 the patient's daughter had her first manic episode and this set the patient back horribly and reactivated her PTSD from her sons . She is currently depressed and unable to function well at home. She endorses hopelessness, worthlessness, sadness and crying episodes. She lacks motivation and is mildly anhedonic. She has daily, passive, fleeting suicidal ideation but denies any active suicidal ideation and denies any plan for suicide. She states that she has not been manic in many years and her last hypomanic episode was in 2021. Discharge Diagnoses:: 1. Bipolar 1 disorder, most recent episode depression, severe without psychosis (F31.4) 2. PTSD 3. Generalized anxiety disorder 4. Rule out alcohol use disorder 5. Abnormal mouth movements, rule out tar dive dyskinesia 6. Primary support issues Reason for Discharge:: Pt reports significant treatment progress and would like to discharge from IOP. Treatment Progress During Treatment & Response: Significant treatment progress noted AEB DSM 5 cross-cutting scores at discharge. Scores indicate a 43% reduction in depression, a 56% reduction in anxiety, 100% reduction in suicidal thoughts, and an overall 69% reduction in overall mental health symptoms. Pt consistently attended IOP sessions, engaged in group, and followed through with use of skills outside treatment environment. Issues Still to be Addressed:: Pt could benefit from continued grief counseling, trauma treatment, decrease in alcohol use as a coping skill, and challenging negative core beliefs. Discharge Recommendations/Instructions:: Pt to continue outpatient counseling with Cora Young and outpatient psychiatry with Dr. Link. Discharge Handout
== END 2023-06-25 12:51 | disposition home or self-care (01) ==
LOC: BHIOP 08:31
PROVIDERS: PCP Internal Medicine; Referring Provider Psychiatry & Neurology Psychiatry; Visit Provider Psychiatry & Neurology Psychiatry
DX: F31.4 Bipolar disorder, current episode depressed, severe, without psychotic features (principal); F43.10 Post-traumatic stress disorder, unspecified; F41.1 Generalized anxiety disorder
CPT/HCPCS: S9480; 90832; 90837; 90853

== ENCOUNTER → 2023-06-29 | Outpatient (CLI) | payer MEDICARE, SELFPAY ==
--- NOTE | 2023-06-29 10:57 | RAD_ITS ---
EXAM: XR LEFT HIP WITH PELVIS WHEN PERFORMED, 2 OR 3 VIEWS CLINICAL INDICATION: left hip pain TECHNIQUE: Two or three views of the left hip with pelvis when performed. COMPARISON: No relevant prior studies available. FINDINGS: BONES/JOINTS: Unremarkable. No displaced fracture. No destructive or sclerotic lesions. Note that overlapping bowel shadows may however obscure fine detail. Sacroiliac joint is unremarkable. No widening of the pubic symphysis. The articular structures are unremarkable. SOFT TISSUES: Unremarkable. No soft tissue swelling or gas. RAD/HIP, UNI W/ Pelvis 2-3 Views IMPRESSION: No evidence of displaced pelvic or hip fracture. Electronically Signed: Erick Perkins MD at 23:28 EDT ,
[2023-06-29 12:21] LABS: Absolute Lymphocyte Count 1.73 X10^3/uL (0.83-4.51); Absolute Neutrophil Count 3.1 X10^3/uL (2.0-7.7); Basophil# 0.05 X10^3/uL; Basophil% 0.9 % (0-1); Eosinophil# 0.02 X10^3/uL; Eosinophils% 0.4 % (0-5); Hemoglobin 14.4 g/dL (12.0-15.0); Lymphocyte # 1.73 X10^3/ul (0.83-4.51); Lymphocyte % 32.8 % (19-41); Mean Corpuscular Volume 96.8 fL (81-99); Mean Platelet Vol. 10.6 fl (6.2-12.0); Monocyte# 0.41 X10^3/uL; Monocyte% 7.8 % (0-10); NRBC Flagged by Analyzer 0 % (0-5); Neutrophil # 3.05 X10^3/uL (2.7-7.7); Neutrophil % 57.9 % (47-70); Platelet Count 212 K/mm3 (150-450); RBC Distribution Width CV 12.9 % (11.6-14.6); Red Blood Count 4.65 M/mm3 (4.2-5.4); White Blood Count 5.3 K/mm3 (4.4-11.0)
[2023-06-29 12:45] LABS: ALB/GLOB Ratio 1.5 RATIO (0.9-2.4); AST(SGOT) 15 U/L (15-37); Alanine Aminotransfer ALT/SGPT 22 U/L (13-56); Albumin, Serum 4.1 g/dL (3.2-5.0); Alkaline Phosphatase 47 U/L (45-117); Anion Gap 6 (5-15); BUN 8 mg/dL (7-18); BUN/Creat Ratio 9.5 RATIO (10-20); Calcium,Total 8.7 mg/dL (8.5-10.1); Chloride 102 mmol/L (98-107); Cholesterol 233 mg/dL (200); Creatinine, Serum 0.85 mg/dL (0.55-1.02); EST Glomerular Filtration Rate 72 mL/min (>60); Est Glom Filt Rate - Afr Amer 88 mL/min (>60); Globulin 2.8 g/dL (2.2-4.2); Glucose 97 mg/dL (74-106); High Density Lipoprotein 132 mg/dL; Potassium 4.2 mmol/L (3.5-5.1); Protein, Total 6.9 g/dL (6.4-8.2); Sodium Level 138 mmol/L (136-145); Triglycerides 57 mg/dL; Very Low Density Lipoprotein 11 mg/dL (5-40)
[2023-06-29 12:47] LABS: Hemoglobin A1c 5.4 % (3.8-5.6)
[2023-06-29 12:53] LABS: Vitamin B12 218 pg/mL (211-911); Vitamin D,25 Hydroxy 27.9 ng/mL
[2023-06-30 09:40] LABS: T4 Free Direct 0.79 ng/dL (0.76-1.46)
[2023-06-30 09:46] LABS: T3 Total - Triiodothyronine 0.52 ng/mL (0.6-1.81)
== END | disposition home or self-care (01) ==
PROVIDERS: PCP Internal Medicine; Referring Provider Internal Medicine; Visit Provider Internal Medicine
DX: M25.552 Pain in left hip (principal); F32.1 Major depressive disorder, single episode, moderate; K58.1 Irritable bowel syndrome with constipation; Z79.899 Other long term (current) drug therapy; M85.80 Other specified disorders of bone density and structure, unspecified site; L65.9 Nonscarring hair loss, unspecified; E89.0 Postprocedural hypothyroidism
CPT/HCPCS: 36415; 73502; 80053; 80061; 82306; 82607; 83036; 84439; 84443; 84480; 85025

== ENCOUNTER 2024-02-14 18:06 | Inpatient (IN) | payer MEDICARE, SELFPAY ==
[2024-02-14 18:07] VITALS: BP 149/85; PULSE 52; RESP 22; TEMP 37.1; O2SAT 98; BMI 24.4
--- NOTE | 2024-02-14 18:48 | CT_ITS ---
STUDY: CT Abdomen And Pelvis W/ Contrast Injection 02/14/2024 9:12 PM REASON FOR EXAM: Female, 63 years old. Abdominal pain Abdominal pain -- IV PO Contrast Individualized dose optimization techniques were used for this CT. COMPARISON: None. TECHNIQUE: CT Abdomen And Pelvis W/ Contrast Injection Oral and amp; IV Gastrografin and amp; 100mL Isovue-370 FINDINGS: Free fluid along the left paracolic gutter. The visualized portions of the heart are within normal limits. Normal liver. Normal gallbladder and extrahepatic biliary system. Normal spleen. Normal pancreas. Normal bilateral adrenal glands. No acute findings of the right kidney. No acute findings of the left kidney. Diffuse fluid distention of the stomach. There are dilated loops of the small intestine with a non-distended colon consistent with a small bowel obstruction. Stairstep sign visualized in the small bowel. Transition point noted in the left lower quadrant which may related to an internal hernia or adhesion. Series 2 image 75. Stool throughout the colon. The appendix is visualized and appears normal. There are calcifications of the abdominal aorta. This is consistent for atherosclerotic disease. There is NO abdominal aortic aneurysm. Vascular workup can be obtained based on clinical correlation. Normal inferior vena cava. Subcentimeter mesenteric lymph nodes. Normal urinary bladder. Uterine fibroid noted.4. 6 cm right ovarian cyst. Normal abdominal wall. There are diffuse degenerative changes of the visualized lumbar spine. CT/Abdomen/Pelvis WITH Contrast IMPRESSION: (NOT LISTED IN ORDER OF SIGNIFICANCE) Small bowel obstruction. Transition point in the left lower quadrant. Other findings as above. Electronically Signed: Erick Birch MD at 21:17 EDT ,
--- NOTE | 2024-02-14 18:51 | EDS_ITS ---
HPI HPI - GI History of Present Illness Chief Complaint: Abd Pain Informant: patient Abdominal Pain/Flank Pain Onset: Today Context: Sudden Onset Timing: Continuous Quality: Cramping, Sharp and Stabbing Location: Diffuse Worsened by: Nothing Relieved by: Nothing Nausea/Vomiting/Emesis GI Symptom: Positive for Nausea and Vomiting Onset: Today Quality: Positive for Nonbilious; Negative for Blood streaks, Coffee ground or Hematemesis Diarrhea/Melena/Hematochezia GI Symptom: Negative for Diarrhea, Melena or Hematochezia Associated Symptoms Associated Symptoms: Negative for Dysuria, Frequency or Hematuria Narrative Narrative: Patient presents with abdominal pain, nausea, and vomiting that began earlier this morning. Patient states it woke her up out of sleep. Patient states it began rather suddenly. Patient describes her pain as stabbing, sharp, and cramping. Patient states that it started on the left side but is now diffuse over her entire abdomen. Patient admits to some nausea and vomiting. Patient denies any hematemesis or coffee-ground emesis. Patient states she is unable to keep anything down. Patient denies any diarrhea, melena, or hematochezia. Patient denies any urinary complaints. Patient admits to some subjective chills but denies any fevers. Patient admits to some pain in her neck and back. [facility] Medical History Acute conjunctivitis, right eye Acute maxillary sinusitis, unspecified ADD (attention deficit disorder) Bipolar 1 disorder, depressed, severe Bowel obstruction Breast lump Carpal tunnel syndrome Fibromyalgia Generalized anxiety disorder History of psychiatric care History of suicide attempt IBS (irritable colon syndrome) Insomnia Migraine OCD (obsessive compulsive disorder) Osteopenia PTSD (post-traumatic stress disorder) Home Medications hydroxyzine HCl 50 mg tablet 25 mg PO TID PRN anxiety 06/03/23 [History Last Taken Unknown] ivermectin 1 % topical cream 1 applic topical DAILY #45 grams 06/10/23 [Rx Last Taken Unknown] atorvastatin 20 mg tablet 20 mg PO DAILY #90 tabs 09/18/23 [Rx Last Taken Unknown] levothyroxine 75 mcg tablet See Rx Instructions .Route .COMPLEX #90 tabs 12/15/23 [Rx Last Taken Unknown] linaclotide 145 mcg capsule (Linzess) 145 mcg PO DAILY #90 caps 01/08/24 [Rx Last Taken Unknown] quetiapine 100 mg tablet (Seroquel) 100 mg PO QHS 90 days #90 tabs 01/20/24 [Rx Last Taken Unknown] trazodone 100 mg tablet 200 mg (2 x 100 mg) PO DAILY 90 days #180 tabs 01/20/24 [Rx Last Taken Unknown] clindamycin HCl 150 mg capsule 300 mg PO Q6H 02/14/24 [History Last Taken Unknown] doxycycline hyclate 20 mg tablet 20 mg PO Q12H 02/14/24 [History Last Taken Unknown] escitalopram oxalate 20 mg tablet 20 mg PO DAILY 02/14/24 [History Last Taken Unknown] Allergy/AdvReac Type Severity Reaction Status Date / Time latex Allergy Severe Anaphylaxis Verified 01/20/24 10:17 Cephalosporins Allergy Mild rash Verified 01/20/24 10:17 gabapentin Allergy Mild Rash Verified 01/20/24 10:17 lamotrigine [From Lamictal] Allergy Mild rash Verified 01/20/24 10:17 Sulfa (Sulfonamide Allergy Mild rash Verified 01/20/24 10:17 Antibiotics) Penicillins Allergy rash Verified 01/20/24 10:17 Family History Father Alcoholism Cancer bladder Hypertension Mother Arthritis Osteoporosis Daughter Bipolar 1 disorder Surgical History H/O arthroplasty H/O laparoscopy H/O sinus surgery H/O thyroidectomy History of breast biopsy History of carpal tunnel release History of delivery History of hernia repair History of surgical procedure Hx of LASIK Hx of tonsillectomy Previous back surgery Tubal ligation status Social History household members: other details: alone Smoking Status: Former smoker quit date: 05/06/22 pack-years: 30 Electronic Cigarette Use: not used alcohol intake: current alcohol intake frequency: 0-2 drinks per day Alcohol type: wine substance use type: does not use what type of physical activity do you participate in: none do you feel safe at home: Yes ROS ROS ED Constitutional Constitutional ED: Reports chills and subjective; Denies fever(s) Eyes Eyes: Denies blurry vision or change in vision ENT ENT ED: Denies rhinorrhea or sore throat Cardiovascular Cardiovascular: Reports chest pain; Denies palpitations Respiratory/Chest Respiratory/Chest: Denies cough or dyspnea Gastrointestinal Gastrointestinal: Reports abdominal pain, nausea and vomiting Genitourinary Genitourinary ED: Denies dysuria or hematuria Musculoskeletal Musculoskeletal: Reports back pain and neck pain Integumentary Denies abscess or rash Neurologic Neurologic: Denies headache(s) or weakness Allergic/Immunologic Allergic/Immunologic ED: Denies mouth swelling or urticaria EXAM Physical Exam Const Vital Signs: 02/14/24 18:07 02/14/24 20:00 02/14/24 22:00 Temperature 98.8 F 99.0 F 98.4 F Temperature Source Oral Oral Oral Pulse Rate 52 L 53 L 54 L Respiratory Rate 22 H 16 16 Blood Pressure 149/85 H 139/73 H 127/72 H Blood Pressure Mean 106 95 90 Pulse Ox 98 96 93 Oxygen Delivery Method Room Air Room Air Room Air Positive well nourished and well developed General Appearance ED: well developed and NAD HEENT Reports moist mucous membranes Neck supple and no JVD Resp normal respiratory effort and clear to auscultation bilaterally Cardio regular rate and regular rhythm GI non-distended Palpation: soft and tender epigastric, LLQ, RLQ, LUQ, RUQ, periumbilical and suprapubic; Negative for guarding or rebound tenderness present Neuro CN's II-XII intact bilaterally, moves all extremities and no sensory deficits noted Sensorium / Orientation: alert Motor Exam: strength 5/5 throughout Psych mental status grossly normal MDM MDM MDM Narrative Medical decision making narrative: Differential diagnosis includes bowel obstruction, perforation, gastritis, pancreatitis, appendicitis, pyelonephritis, urinary tract infection, and IBS exacerbation. CBC will be obtained to assess for leukocytosis and anemia. Comprehensive metabolic profile will be obtained to assess for electrolyte abnormality, renal function, and hepatic function. Lipase will be obtained to assess for pancreatitis. Urinalysis will be obtained to assess for urinary tract infection and hematuria. CT scan of the abdomen pelvis will be obtained to assess for bowel obstruction, perforation, appendicitis, and pancreatitis. Lab Data Attestation: I reviewed the patient's lab results. Lab results narrative: CBC was reviewed. Hemoglobin was slightly elevated at 16.3 and hematocrit is 47.7. Comprehensive metabolic profile was reviewed. Creatinine was slightly elevated at 1.11. Total bilirubin was normal. AST was 12 and ALT was 16. Lipase was reviewed and was normal at 31. Urinalysis was reviewed. There is no evidence of urinary tract infection or hematuria. Labs: Laboratory Results - last 24 hr 02/14/24 02/14/24 18:15 21:15 WBC 10.6 RBC 5.16 Hgb 16.3 H Hct 47.7 H MCV 92.4 MCH 31.6 MCHC 34.2 RDW Std Deviation 43.8 RDW Coeff of Tiffany 12.8 Plt Count 308 MPV 10.6 Immature Gran % (Auto) 0.300 Neut % (Auto) 70.0 Lymph % (Auto) 9.6 L [place] % (Auto) 5.7 Eos % (Auto) 14.0 H Baso % (Auto) 0.4 Absolute Neuts (auto) 7.4 Absolute Lymphs (auto) 1.02 Nucleated RBC % 0 Differential Comment SCANNED Sodium 137 Potassium 3.8 Chloride 101 Carbon Dioxide 25.0 Anion Gap 11 BUN 10 Creatinine 1.11 H Estim Creat Clear Calc 48.56 Est GFR (MDRD) Af Amer 64 Est GFR (MDRD) Non-Af 53 L BUN/Creatinine Ratio 9.0 L Glucose 146 H Calcium 10.2 H Total Bilirubin 0.70 AST 12 L ALT 16 Alkaline Phosphatase 57 Total Protein 7.9 Albumin 4.3 Globulin 3.6 Albumin/Globulin Ratio 1.2 Lipase 31 Urine Color Yellow Urine Clarity Clear Urine pH 9.0 Ur Specific [place] 1.015 Urine Protein 30 H Urine Glucose (UA) Normal Urine Ketones 15 H Urine Occult Blood 10 H Urine Nitrite Negative Urine Bilirubin Negative Urine Urobilinogen Normal Ur Leukocyte Esterase 25 H Urine RBC 0 SEEN Urine WBC 0 SEEN Ur Squamous Epith Cells 0 SEEN Urine Bacteria 0 SEEN Urine Mucus 0 SEEN Radiography Diagnostic Testing: Clinical Impression(s) from Imaging Studies Abdomen/Pelvis CT 02/14/24 18:48 IMPRESSION: (NOT LISTED IN ORDER OF SIGNIFICANCE) Small bowel obstruction. Transition point in the left lower quadrant. Other findings as above. Electronically Signed: Erick Birch MD at 21:17 EDT , CT scan of the abdomen and pelvis was obtained. There is evidence of a small bowel obstruction. The transition point is in the left lower quadrant. There is no perforation noted. There is no free air or free fluid. This was interpreted by the radiologist and was also dependently reviewed by myself. Because of the small bowel obstruction, NG tube was placed and a KUB was obtained for tube placement. There are 2 views. On my independent interpretation, the NG tube was in the stomach. There is no evidence of perforation. Radiologist also interpreted the x-ray and agrees. Treatment and Re-Evaluation :: Patient was given IV fluids, morphine, and Zofran. Patient was advised of her findings. NG tube was placed. Case was discussed with Dr. Shaffer. She will be in to evaluate the patient. She will admit the patient to her service. Patient and family understood and were agreeable with the plan. All questions were answered. Discharge Plan Triage Chief Complaint: Abd Pain ED Provider: Ilya John Dx/Rx/DC Orders Clinical Impression: Small bowel obstruction, IBS (irritable colon syndrome) Prescriptions: No Action ivermectin 1 % cream 1 applic topical DAILY Qty: 45 3RF Rx Instructions: Apply topically every day to affected areas quetiapine [Seroquel] 100 mg tablet 100 mg PO QHS 90 Days Qty: 90 1RF trazodone 100 mg tablet 200 mg PO DAILY 90 Days Qty: 180 2RF hydroxyzine HCl 50 mg tablet 25 mg PO TID PRN (Reason: anxiety) clindamycin HCl 150 mg capsule 300 mg PO Q6H doxycycline hyclate 20 mg tablet 20 mg PO Q12H Patient Comments: PLEASE SEE ATTACHED FOR DETAILED DIRECTIONS escitalopram oxalate 20 mg tablet 20 mg PO DAILY atorvastatin 20 mg tablet 20 mg PO DAILY Qty: 90 1RF levothyroxine 75 mcg tablet See Rx Instructions .ROUTE .COMPLEX Qty: 90 0RF Dose Instruction: TAKE 1 TABLET BY MOUTH EVERY DAY Rx Instructions: TAKE 1 TABLET BY MOUTH EVERY DAY Linzess 145 mcg capsule 145 mcg PO DAILY Qty: 90 0RF Primary Care Provider: Lesley León Referrals: Lesley León MD [Primary Care Provider] - Disposition Disposition: [facility]
[2024-02-14 18:56] LABS: Absolute Lymphocyte Count 1.02 X10^3/uL (0.83-4.51); Absolute Neutrophil Count 7.4 X10^3/uL (2.0-7.7); Basophil# 0.04 X10^3/uL; Basophil% 0.4 % (0-1); Eosinophil# 1.48 X10^3/uL; Hematocrit 47.7 % (37-47); Hemoglobin 16.3 g/dL (12.0-15.0); Lymphocyte # 1.02 X10^3/ul (0.83-4.51); Lymphocyte % 9.6 % (19-41); Mean Corp Hgb Conc 34.2 g/dL (32-36); Mean Corpuscular Hgb 31.6 pg (27.0-32.0); Mean Corpuscular Volume 92.4 fL (81-99); Mean Platelet Vol. 10.6 fl (6.2-12.0); Monocyte% 5.7 % (0-10); NRBC Flagged by Analyzer 0 % (0-5); Neutrophil # 7.41 X10^3/uL (2.7-7.7); POSITIVE MORPHOLOGY YES; Platelet Count 308 K/mm3 (150-450); RBC Distribution Width CV 12.8 % (11.6-14.6); RBC Distribution Width SD 43.8 fl (35.1-43.9); Red Blood Count 5.16 M/mm3 (4.2-5.4); White Blood Count 10.6 K/mm3 (4.4-11.0)
[2024-02-14] MEDS: Ondansetron 4 MG/2 ML Vial IV (18:56)
[2024-02-14] MEDS: Morphine 4 MG/ML Syringe IV ×2 (18:56→23:32)
[2024-02-14] MEDS: 0.9% Normal Saline (1000mL) 1,000 ML 1000 ML IV (18:56)
[2024-02-14 19:00] LABS: Differential Indicated SCAN CRITERIA MET
[2024-02-14 19:15] LABS: ALB/GLOB Ratio 1.2 RATIO (0.9-2.4); AST(SGOT) 12 U/L (15-37); Alanine Aminotransfer ALT/SGPT 16 U/L (13-56); Albumin, Serum 4.3 g/dL (3.2-5.0); Alkaline Phosphatase 57 U/L (45-117); Anion Gap 11 (5-15); BUN 10 mg/dL (7-18); Calcium,Total 10.2 mg/dL (8.5-10.1); Chloride 101 mmol/L (98-107); Creatinine, Serum 1.11 mg/dL (0.55-1.02); EST Glomerular Filtration Rate 53 mL/min (>60); Est Glom Filt Rate - Afr Amer 64 mL/min (>60); Estimated Creatinine Clearance 48.56 ml/min; Globulin 3.6 g/dL (2.2-4.2); Glucose 146 mg/dL (74-106); Lipase 31 U/L (13-75); Potassium 3.8 mmol/L (3.5-5.1); Protein, Total 7.9 g/dL (6.4-8.2); Sodium Level 137 mmol/L (136-145)
[2024-02-14 19:24] LABS: Differential Comment SCANNED
[2024-02-14 20:00] VITALS: BP 139/73; PULSE 53; RESP 16; TEMP 37.2; O2SAT 96
[2024-02-14 21:22] LABS: Bacteria 0 SEEN /hpf (None Seen); Mucous, Urine 0 SEEN /hpf (<or=2+); Red Blood Cells-Urine 0 SEEN /hpf (0-5); Squamous Epithelial Cells - UA 0 SEEN /hpf (5-10); White Blood Cells 0 SEEN /hpf (0-5)
[2024-02-14 21:29] LABS: Color, Urine Yellow (Yellow); Glucose, Dipstick Normal (Normal); Ketone-Dipstick 15 mg/dl (Negative); Leukocyte Esterase-Dipstick 25 /ul (Negative); Nitrite-Dipstick Negative (Negative); Occult Blood-Urine 10 /ul (Negative); Protein-Dipstick 30 mg/dl (Negative); Specific Gravity, Urine 1.015 (1.002-1.030); Urine Bilirubin Dipstick Negative (Negative); Urine Clarity Clear (Clear); Urine Urobilinogen Normal (Normal)
[2024-02-14 22:00] VITALS: BP 127/72; PULSE 54; RESP 16; TEMP 36.9; O2SAT 93
--- NOTE | 2024-02-14 22:40 | RAD_ITS ---
INDICATION: NG Insertion EXAMINATION/TECHNIQUE: X-RAY - XR Abdomen 2 views COMPARISON: Prior study dated: CT from today FINDINGS: BOWEL GAS PATTERN: Enteric tube terminates in the stomach. Gas filled dilated small bowel in the right upper quadrant again noted. Scattered gas in the colon. FREE AIR: None. ORGANOMEGALY: Not seen. CALCIFICATIONS: No abnormal calcifications observed. LOWER CHEST: No acute pathology. BONES AND SOFT TISSUES: No acute pathology. RAD/Abdomen Single View (Portable) IMPRESSION: Enteric tube terminating in the stomach in good position. Dilated small bowel again noted. Electronically Signed: Daniele Ross MD at 23:18 EDT ,
--- NOTE | 2024-02-14 22:45 | PCM.HP.STD ---
HPI - General General Date of Admission: 02/14/24 HPI Narrative ANN MARIE HULL, is a 63 F who presents to the ER due to diffuse abdominal pain nausea and vomiting. Patient had normal white blood cell count with shift. Patient was scheduled to have dental work tomorrow was on clindamycin 6 days prior and also low-dose doxycycline due to facial skin issue. Patient CT abdomen pelvis shows distended small bowel with a transition in the left lower quadrant possible adhesion or internal hernia. Patient's abdominal surgeries include laparoscopic tubal ligation, umbilical hernia repair as a child, x 2, laparoscopic. Patient NG placed in the ER and got 2 L out initially. [facility] Medical History Acute conjunctivitis, right eye Acute maxillary sinusitis, unspecified ADD (attention deficit disorder) Bipolar 1 disorder, depressed, severe Bowel obstruction Breast lump Carpal tunnel syndrome Fibromyalgia Generalized anxiety disorder History of psychiatric care History of suicide attempt IBS (irritable colon syndrome) Insomnia Migraine OCD (obsessive compulsive disorder) Osteopenia PTSD (post-traumatic stress disorder) Home Medications hydroxyzine HCl 50 mg tablet 25 mg PO TID PRN anxiety 06/03/23 [History Last Taken Unknown] ivermectin 1 % topical cream 1 applic topical DAILY #45 grams 06/10/23 [Rx Last Taken Unknown] atorvastatin 20 mg tablet 20 mg PO DAILY #90 tabs 09/18/23 [Rx Last Taken Unknown] levothyroxine 75 mcg tablet See Rx Instructions .Route .COMPLEX #90 tabs 12/15/23 [Rx Last Taken Unknown] linaclotide 145 mcg capsule (Linzess) 145 mcg PO DAILY #90 caps 01/08/24 [Rx Last Taken Unknown] quetiapine 100 mg tablet (Seroquel) 100 mg PO QHS 90 days #90 tabs 01/20/24 [Rx Last Taken Unknown] trazodone 100 mg tablet 200 mg (2 x 100 mg) PO DAILY 90 days #180 tabs 01/20/24 [Rx Last Taken Unknown] clindamycin HCl 150 mg capsule 300 mg PO Q6H 02/14/24 [History Last Taken Unknown] doxycycline hyclate 20 mg tablet 20 mg PO Q12H 02/14/24 [History Last Taken Unknown] escitalopram oxalate 20 mg tablet 20 mg PO DAILY 02/14/24 [History Last Taken Unknown] Allergy/AdvReac Type Severity Reaction Status Date / Time latex Allergy Severe Anaphylaxis Verified 01/20/24 10:17 Cephalosporins Allergy Mild rash Verified 01/20/24 10:17 gabapentin Allergy Mild Rash Verified 01/20/24 10:17 lamotrigine [From Lamictal] Allergy Mild rash Verified 01/20/24 10:17 Sulfa (Sulfonamide Allergy Mild rash Verified 01/20/24 10:17 Antibiotics) Penicillins Allergy rash Verified 01/20/24 10:17 Family History Father Alcoholism Cancer bladder Hypertension Mother Arthritis Osteoporosis Daughter Bipolar 1 disorder Surgical History H/O arthroplasty H/O laparoscopy H/O sinus surgery H/O thyroidectomy History of breast biopsy History of carpal tunnel release History of delivery History of hernia repair History of surgical procedure Hx of LASIK Hx of tonsillectomy Previous back surgery Tubal ligation status Social History household members: other details: alone Smoking Status: Former smoker quit date: 05/06/22 pack-years: 30 Electronic Cigarette Use: not used alcohol intake: current alcohol intake frequency: 0-2 drinks per day Alcohol type: wine substance use type: does not use what type of physical activity do you participate in: none do you feel safe at home: Yes Vital Signs Vital Signs Vital Signs: 02/14/24 18:07 02/14/24 20:00 02/14/24 22:00 Temperature 98.8 F 99.0 F 98.4 F Temperature Source Oral Oral Oral Pulse Rate 52 L 53 L 54 L Respiratory Rate 22 H 16 16 Blood Pressure 149/85 H 139/73 H 127/72 H Blood Pressure Mean 106 95 90 Pulse Ox 98 96 93 Oxygen Delivery Method Room Air Room Air Room Air Weight Weight: 151 lb 3.794 oz Body Mass Index (BMI) 24.4 Physical Exam Const alert, oriented x3 and no apparent distress HEENT normocephalic and head/scalp atraumatic Resp normal respiratory effort Cardio regular rate GI soft to palpation; Negative for non-distended Palpation: tender epigastric, LLQ, RLQ, LUQ, RUQ and other (No rebound); Negative for guarding Extremity no clubbing, cyanosis or edema Neuro CN's II-XII intact bilaterally Psych mental status grossly normal Results Lab / Micro Data 02/15/24 03:45 02/15/24 03:45 Labs: Laboratory Results - last 24 hr 02/14/24 18:15: WBC 10.6, RBC 5.16, Hgb 16.3 H, Hct 47.7 H, MCV 92.4, MCH 31.6, MCHC 34.2, RDW Std Deviation 43.8, RDW Coeff of Tiffany 12.8, Plt Count 308, MPV 10.6, Immature Gran % (Auto) 0.300, Neut % (Auto) 70.0, Lymph % (Auto) 9.6 L, [place] % (Auto) 5.7, Eos % (Auto) 14.0 H, Baso % (Auto) 0.4, Absolute Neuts (auto) 7.4, Absolute Lymphs (auto) 1.02, Nucleated RBC % 0, Differential Comment SCANNED, Sodium 137, Potassium 3.8, Chloride 101, Carbon Dioxide 25.0, Anion Gap 11, BUN 10, Creatinine 1.11 H, Estim Creat Clear Calc 48.56, Est GFR (MDRD) Af Amer 64, Est GFR (MDRD) Non-Af 53 L, BUN/Creatinine Ratio 9.0 L, Glucose 146 H, Calcium 10.2 H, Total Bilirubin 0.70, AST 12 L, ALT 16, Alkaline Phosphatase 57, Total Protein 7.9, Albumin 4.3, Globulin 3.6, Albumin/Globulin Ratio 1.2, Lipase 31 02/14/24 21:15: Urine Color Yellow, Urine Clarity Clear, Urine pH 9.0, Ur Specific [place] 1.015, Urine Protein 30 H, Urine Glucose (UA) Normal, Urine Ketones 15 H, Urine Occult Blood 10 H, Urine Nitrite Negative, Urine Bilirubin Negative, Urine Urobilinogen Normal, Ur Leukocyte Esterase 25 H, Urine RBC 0 SEEN, Urine WBC 0 SEEN, Ur Squamous Epith Cells 0 SEEN, Urine Bacteria 0 SEEN, Urine Mucus 0 SEEN Imaging Radiology Impression Abdomen/Pelvis CT 02/14/24 18:48 IMPRESSION: (NOT LISTED IN ORDER OF SIGNIFICANCE) Small bowel obstruction. Transition point in the left lower quadrant. Other findings as above. Electronically Signed: Erick Birch MD at 21:17 EDT , Assessment & Plan Assessment/Plan (1) Small bowel obstruction: PLAN: Plan Review CT abdomen pelvis personally and with the patient and her daughter. Discussed that I believe there would be a high likelihood of patient needing surgery tomorrow. NG is in place. Plan to get a KUB in the morning if still dilated small bowel not attempt Gastrografin small bowel follow-through and just go ahead with diagnostic laparoscopic, possible bowel resection, possible open. Discussed the risk including but not limited to bleeding, infection, need for bowel resection. Patient no further question this time. Will admit keep n.p.o./IV fluids/NG to low intermittent wall suction Will check KUB in the morning Pain control Tyra Shaffer M.D. Pager: [phone] [facility] [address] [place] [address], [facility], [address] [place] [address] Office: [phone]
[2024-02-14] MEDS: Oxymetazoline 0.05% 1 SPRAY SPRAY.BTL 2 SPRAY NASAL (23:06)
--- NOTE | 2024-02-14 23:10 | RAD_ITS ---
INDICATION: NG PLACEMENT #2 EXAMINATION/TECHNIQUE: X-RAY - XR Abdomen 1 View COMPARISON: Prior study dated: 02/14/2024 FINDINGS: BOWEL GAS PATTERN: Enteric tube terminates in the stomach, retracted in position from prior. The side-port is now at the level of the gastroesophageal junction. Redemonstration of dilated small bowel in the right upper quadrant. FREE AIR: None. ORGANOMEGALY: Not seen. CALCIFICATIONS: No abnormal calcifications observed. LOWER CHEST: No acute pathology. BONES AND SOFT TISSUES: No acute pathology. RAD/Abdomen Single View (Portable) IMPRESSION: Retracted positioning of the enteric tube with the side-port at the level of the gastroesophageal junction. Suggest advancement. Persistent small bowel dilatation. Electronically Signed: Daniele Ross MD at 23:32 EDT ,
--- NOTE | 2024-02-14 23:13 | RAD_ITS ---
INDICATION: NG PLACEMENT #3 EXAMINATION/TECHNIQUE: X-RAY - XR Abdomen 1 View COMPARISON: Prior study dated: 02/14/2024 FINDINGS: BOWEL GAS PATTERN: Advancement of the enteric tube terminating in the stomach in good position. Persistent small bowel dilatation in the right upper quadrant. FREE AIR: None. ORGANOMEGALY: Not seen. CALCIFICATIONS: No abnormal calcifications observed. LOWER CHEST: No acute pathology. BONES AND SOFT TISSUES: No acute pathology. RAD/Abdomen Single View (Portable) IMPRESSION: Enteric tube now terminates over the stomach in good position. Persistent small bowel dilatation. Electronically Signed: Daniele Ross MD at 23:38 EDT ,
[2024-02-14 23:20] VITALS: BP 134/99; PULSE 42; RESP 16; TEMP 36.6; O2SAT 97
[2024-02-15] VITALS (12 sets, daily range): BP systolic 102–163; BP diastolic 52–84; PULSE 50–64; RESP 15–18; TEMP 36.4–37.4; O2SAT 88–98; BMI 23.6
[2024-02-15] MEDS: Lactated Ringers 1,000 ML 130 ML IV ×3 (00:22→14:03)
[2024-02-15] MEDS: Pantoprazole Sodium 40 MG in 0.9% Normal Saline (100mL MB+) 100 ML 330 MG IV ×2 (00:42→09:21)
[2024-02-15 04:37] LABS: Absolute Lymphocyte Count 1.58 X10^3/uL (0.83-4.51); Absolute Neutrophil Count 6.9 X10^3/uL (2.0-7.7); Basophil# 0.04 X10^3/uL; Basophil% 0.4 % (0-1); Eosinophil# 0.01 X10^3/uL; Eosinophils% 0.1 % (0-5); Hematocrit 43.8 % (37-47); Hemoglobin 14.5 g/dL (12.0-15.0); Lymphocyte # 1.58 X10^3/ul (0.83-4.51); Lymphocyte % 16.8 % (19-41); Mean Corp Hgb Conc 33.1 g/dL (32-36); Mean Corpuscular Hgb 31.7 pg (27.0-32.0); Mean Corpuscular Volume 95.6 fL (81-99); Mean Platelet Vol. 10.2 fl (6.2-12.0); Monocyte# 0.85 X10^3/uL; NRBC Flagged by Analyzer 0 % (0-5); Neutrophil # 6.92 X10^3/uL (2.7-7.7); Neutrophil % 73.5 % (47-70); Platelet Count 239 K/mm3 (150-450); RBC Distribution Width SD 45.8 fl (35.1-43.9); Red Blood Count 4.58 M/mm3 (4.2-5.4); White Blood Count 9.4 K/mm3 (4.4-11.0)
[2024-02-15 05:08] LABS: Anion Gap 5 (5-15); BUN 11 mg/dL (7-18); BUN/Creat Ratio 14.9 RATIO (10-20); Calcium,Total 8.9 mg/dL (8.5-10.1); Chloride 102 mmol/L (98-107); Creatinine, Serum 0.74 mg/dL (0.55-1.02); EST Glomerular Filtration Rate 84 mL/min (>60); Est Glom Filt Rate - Afr Amer 102 mL/min (>60); Estimated Creatinine Clearance 72.85 ml/min; Glucose 122 mg/dL (74-106); Potassium 3.5 mmol/L (3.5-5.1); Sodium Level 139 mmol/L (136-145)
[2024-02-15 05:20] LABS: Thyroid Stim Hormone (TSH) 1.68 uIU/mL (0.358-3.74)
--- NOTE | 2024-02-15 05:29 | EKG12_ITS ---
Test Reason : PRE-OP Blood Pressure : / mmHG Vent. Rate : 062 BPM Atrial Rate : 096 BPM P-R Int : 172 ms QRS Dur : 090 ms QT Int : 508 ms P-R-T Axes : 064 054 041 degrees QTc Int : 515 ms Sinus rhythm with marked sinus arrhythmia Prolonged QT Abnormal ECG No previous ECGs available Confirmed by DOUG WATERMAN, VITA ([id number]), scientific editor BRYAN LUGO ([id number]) on 02/17/2024 1:15:34 PM Referred By: Confirmed By:VITA CAMACHO MD
--- NOTE | 2024-02-15 05:45 | RAD_ITS ---
STUDY: X-RAY - ABDOMEN/PELVIS REASON FOR EXAM: Female, 63 years old. sbo -- portable TECHNIQUE: Single AP view of the abdomen / pelvis. COMPARISON: 02/14/2024 FINDINGS: Nasogastric tube with the tip in the left upper quadrant, likely in the body the stomach. Excreted contrast in the bladder. There are dilated loops of the small intestine with a non-distended colon consistent with a small bowel obstruction. The visualized liver, spleen and kidneys are grossly normal in size and morphology. Normal soft tissue structures. Normal visualized osseous structures. RAD/Abdomen Single View (Portable) IMPRESSION: 1. Nasogastric tube with the tip in left upper quadrant, likely in the body the stomach. 2. Excreted contrast in the bladder. 3. Mildly dilated small bowel worrisome for a mild partial small bowel obstruction. Electronically Signed: Dusty Lucia MD at 21:16 EDT ,
--- NOTE | 2024-02-15 07:03 | PCM.PN.SRG ---
Subjective Subjective Patient is having some pain again did not have pain pain meds since last night. Patient denies any flatus still having abdominal pain NG put out 400 cc overnight. Objective Data Objective Data Vital Signs: Vital Signs Temp Pulse Resp BP Pulse Ox O2 Del Method 99.0 F 52 L 16 139/61 H 96 Room Air 02/15/24 06:00 02/15/24 06:00 02/15/24 06:00 02/15/24 06:00 02/15/24 06:00 02/15/24 06:00 Oxygen Delivery Method Room Air Weight: 145 lb 15.136 oz Body Mass Index (BMI) 23.6 Intake & Output: Intake and Output for Last 24 Hours 02/13/24 02/14/24 02/15/24 23:59 23:59 23:59 Intake Total 1000 / 1000 290 / 290 Output Total 1900 / 1900 400 / 400 Balance -900 / -900 -110 / -110 Lab / Micro Data 02/15/24 03:45 02/15/24 03:45 Labs: Laboratory Results - last 24 hr 02/14/24 18:15: WBC 10.6, RBC 5.16, Hgb 16.3 H, Hct 47.7 H, MCV 92.4, MCH 31.6, MCHC 34.2, RDW Std Deviation 43.8, RDW Coeff of Tiffany 12.8, Plt Count 308, MPV 10.6, Immature Gran % (Auto) 0.300, Neut % (Auto) 70.0, Lymph % (Auto) 9.6 L, [place] % (Auto) 5.7, Eos % (Auto) 14.0 H, Baso % (Auto) 0.4, Absolute Neuts (auto) 7.4, Absolute Lymphs (auto) 1.02, Nucleated RBC % 0, Differential Comment SCANNED, Sodium 137, Potassium 3.8, Chloride 101, Carbon Dioxide 25.0, Anion Gap 11, BUN 10, Creatinine 1.11 H, Estim Creat Clear Calc 48.56, Est GFR (MDRD) Af Amer 64, Est GFR (MDRD) Non-Af 53 L, BUN/Creatinine Ratio 9.0 L, Glucose 146 H, Calcium 10.2 H, Total Bilirubin 0.70, AST 12 L, ALT 16, Alkaline Phosphatase 57, Total Protein 7.9, Albumin 4.3, Globulin 3.6, Albumin/Globulin Ratio 1.2, Lipase 31 02/14/24 21:15: Urine Color Yellow, Urine Clarity Clear, Urine pH 9.0, Ur Specific Alfred 1.015, Urine Protein 30 H, Urine Glucose (UA) Normal, Urine Ketones 15 H, Urine Occult Blood 10 H, Urine Nitrite Negative, Urine Bilirubin Negative, Urine Urobilinogen Normal, Ur Leukocyte Esterase 25 H, Urine RBC 0 SEEN, Urine WBC 0 SEEN, Ur Squamous Epith Cells 0 SEEN, Urine Bacteria 0 SEEN, Urine Mucus 0 SEEN 02/15/24 03:45: WBC 9.4, RBC 4.58, Hgb 14.5, Hct 43.8, MCV 95.6, MCH 31.7, MCHC 33.1, RDW Std Deviation 45.8 H, RDW Coeff of Tiffany 13.0, Plt Count 239, MPV 10.2, Immature Gran % (Auto) 0.200, Neut % (Auto) 73.5 H, Lymph % (Auto) 16.8 L, [place] % (Auto) 9.0, Eos % (Auto) 0.1, Baso % (Auto) 0.4, Absolute Neuts (auto) 6.9, Absolute Lymphs (auto) 1.58, Nucleated RBC % 0, Sodium 139, Potassium 3.5, Chloride 102, Carbon Dioxide 32.0, Anion Gap 5, BUN 11, Creatinine 0.74, Estim Creat Clear Calc 72.85, Est GFR (MDRD) Af Amer 102, Est GFR (MDRD) Non-Af 84, BUN/Creatinine Ratio 14.9, Glucose 122 H, Calcium 8.9, TSH 1.68 Radiography Diagnostic Testing: Radiology Impression Abdomen/Pelvis CT 02/14/24 18:48 IMPRESSION: (NOT LISTED IN ORDER OF SIGNIFICANCE) Small bowel obstruction. Transition point in the left lower quadrant. Other findings as above. Electronically Signed: Erick Birch MD at 21:17 EDT , KUB X-Ray 02/14/24 22:40 IMPRESSION: Enteric tube terminating in the stomach in good position. Dilated small bowel again noted. Electronically Signed: Daniele Ross MD at 23:18 EDT , KUB X-Ray 02/14/24 23:10 IMPRESSION: Retracted positioning of the enteric tube with the side-port at the level of the gastroesophageal junction. Suggest advancement. Persistent small bowel dilatation. Electronically Signed: Daniele Ross MD at 23:32 EDT , KUB X-Ray 02/14/24 23:13 IMPRESSION: Enteric tube now terminates over the stomach in good position. Persistent small bowel dilatation. Electronically Signed: Daniele Ross MD at 23:38 EDT , Physical Exam Const oriented x3 and no apparent distress Resp normal respiratory effort Cardio regular rate GI soft to palpation GI Narrative: Tender mainly in the upper abdomen, no peritoneal signs Assessment & Plan Assessment/Plan (1) Small bowel obstruction: PLAN: Plan Will plan for a diagnostic laparoscopic, possible bowel resection, possible open this morning.. Discussed the risk including but not limited to bleeding, infection, need for bowel resection. Patient no further question this time. Tyra Shaffer M.D. Pager: [phone] [facility] [address] [place] [address], [address] [place] [address] Office: [phone]
[2024-02-15] MEDS: Morphine 2 MG/ML Syringe IV ×3 (07:25→21:43)
[2024-02-15] MEDS: Ketorolac 15 MG/ML Vial IV ×2 (09:05→23:33)
[2024-02-15] MEDS: 0.9% Saline Lock 10 ML Syringe IV (09:06)
[2024-02-15] MEDS: Lactated Ringers 1,000 ML 15 ML IV (10:37)
[2024-02-15] MEDS: Clindamycin 900 MG/50 ML BAG 75 MG IV (10:42)
[2024-02-15] MEDS: Gentamicin IV 300 MG in Dextrose 5%-Water (50mL Bag) 50 ML 100 MG IVPB (11:06)
[2024-02-15] MEDS: Bupivacaine Mpf 0.5% 30 ML VIAL (12:23)
--- NOTE | 2024-02-15 12:27 | PCM.OPRPT ---
Report of Operation Date of Procedure: 02/15/24 Pre-Operative Diagnosis: Small bowel obstruction Post-Operative Diagnosis: Small bowel obstruction due to internal hernia Surgery/Procedure Performed:: Diagnostic laparoscopy, lysis of adhesion release of internal hernia Surgeon: Tyra Shaffer Type of Anesthesia: General/Supplemental Anesthesiologist: Caesar Hays Special Medications: Clindamycin 900 mg IV x 1, gentamicin 500 mg IV x 1 Specimen's removed: None Estimated Blood Loss (mL): <10 cc Description of Procedure: Indications: this is a 63 year-old female who developed abdominal pain/nausea/vomiting and on workup was found to have small bowel obstruction due to questionable internal hernia or adhesion. Diagnostic laparoscopy was elected. Description procedure: The patient was placed on operating table in supine position. A timeout was completed verifying correct patient, procedure, site, position and special equipment prior to beginning procedure. General Anesthesia was induced. The abdomen was prepped and draped in usual sterile fashion. An incision was made in the natural skin line above the umbilicus. The fascia was elevated and incised. The peritoneum was elevated and incised. Entry into the peritoneum was confirmed visually and no bowel was noted in the vicinity of the incision. [place] trocar was placed. The abdomen was insufflated with carbon dioxide to a pressure of 12-15 mmHg. Patient tolerated insufflation well. The laparoscope was then inserted and abdomen inspected. No injuries from initial trocar placement were noted. Additional trochars were then inserted in the following locations 5 mm trocar in the inferior midline and another in the right lower quadrant. The abdomen was inspected noted to have distended small bowel and decompressed small bowel. Transition of the left lower quadrant and area of internal hernia from adhesion. The table is placed in Trendelenburg position with the left side up. Enseal was used to lyse the adhesion causing the internal hernia. Small bowel was removed?it was bruised this continue to be monitored and it did proved to be viable with peristalsis. Rest of the distal small bowel was ran to the ileum. No other areas of his obstruction were seen. Secondary trochars removed under direct vision. No bleeding was noted the trocar sites. The laparoscope was withdrawn and umbilical trocar removed. The abdomen was allowed to collapse. The fascia of the 12 mm trocar was closed with a [id number] 0 Vicryl suture. The skin was closed with sutures of 4-0 Monocryl and Steri-Strips. The patient was extubated. The patient tolerated procedure well and was taken to the postanesthesia care unit in stable condition. Complications none
--- NOTE | 2024-02-15 15:15 | CASEMGMT ---
MARIO LEÓN Assessment: Face to Face with pt for initial transition planning/care coordination assessment. MARIO LEÓN introduced self and role at [facility], pt voices understanding and consents to assessment. Pt is A&O x4 and answers all questions appropriately at this time. Pt sitting up in bed with NG in and dtr at bedside. Pt agreeable to assessment with dtr present. Care providers, pharmacy, and demographics verified/updated. Admitting Dx: SBO PCP:Mau Specialists:hua Lucero; Nikolay, psych Preferred Pharmacy: [facility] Insurance: [facility] Prescription Benefit: yes LNOK: Noelle Law, dtr; Parag Koehler, Living Arrangements: Pt lives alone ( lives in [place]) in a single story home with no steps to enter. Pt reports she is I in ADL's and denies concerns at home. Transportation: Pt drives self and denies concerns with transportation. DME:Denies HHC/SNF: Denies hx of Pt states no concerns with going home at time of dc. Pt states no further concerns/needs. CM to follow. Advised pt to ask CM if any further question/concerns/needs arise, voices understanding. Pt Goal: Home Plan: Home Devan MARTIN CM
[2024-02-15] MEDS: Fluconazole 10 MG/ML 35 ML Bottle 200 MG NG (16:13)
--- NOTE | 2024-02-15 21:13 | NURSING ---
Went into pt room to put the continous po back on , pt refuses. Pt said my 02 is just fine. pt refused to allow ua to hook her up to continous po.
[2024-02-15] MEDS: hydrOXYzine PAM 25 MG Capsule PO (23:33)
[2024-02-15] MEDS: Lactated Ringers 1,000 ML 100 ML IV (23:45)
[2024-02-16] VITALS (7 sets, daily range): BP systolic 104–133; BP diastolic 55–66; PULSE 45–57; RESP 15–18; TEMP 36.2–37.3; O2SAT 92–99; BMI 23.6
--- NOTE | 2024-02-16 03:09 | NURSING ---
2000: pt refusing to wear overnight heart monitor
[2024-02-16 07:21] LABS: Absolute Lymphocyte Count 1.96 X10^3/uL (0.83-4.51); Absolute Neutrophil Count 3.6 X10^3/uL (2.0-7.7); Basophil# 0.04 X10^3/uL; Basophil% 0.6 % (0-1); Eosinophil# 0.09 X10^3/uL; Eosinophils% 1.5 % (0-5); Hematocrit 34.6 % (37-47); Hemoglobin 11.1 g/dL (12.0-15.0); Lymphocyte # 1.96 X10^3/ul (0.83-4.51); Lymphocyte % 31.8 % (19-41); Mean Corp Hgb Conc 32.1 g/dL (32-36); Mean Corpuscular Hgb 31.3 pg (27.0-32.0); Mean Corpuscular Volume 97.5 fL (81-99); Mean Platelet Vol. 10.1 fl (6.2-12.0); Monocyte# 0.51 X10^3/uL; Monocyte% 8.3 % (0-10); NRBC Flagged by Analyzer 0 % (0-5); Neutrophil # 3.56 X10^3/uL (2.7-7.7); Neutrophil % 57.6 % (47-70); Platelet Count 157 K/mm3 (150-450); RBC Distribution Width CV 13.1 % (11.6-14.6); RBC Distribution Width SD 47.1 fl (35.1-43.9); Red Blood Count 3.55 M/mm3 (4.2-5.4); White Blood Count 6.2 K/mm3 (4.4-11.0)
--- NOTE | 2024-02-16 07:44 | PN.SURG_ITS ---
Subjective Subjective Patient complaining of migraine, denies any abdominal pain. Patient denies nausea or vomiting. NG was removed last night. Patient denies any flatus or bowel movements. Patient does take Linzess daily due to constipation. Objective Data Objective Data Vital Signs: Vital Signs Temp Pulse Resp BP Pulse Ox O2 Del Method O2 Flow Rate 98.2 F 57 L 15 113/66 92 Room Air 2 02/16/24 06:02 02/16/24 06:02 02/16/24 06:02 02/16/24 06:02 02/16/24 06:02 02/16/24 06:02 02/15/24 13:15 Oxygen Flow Rate (L/min) 2 Oxygen Delivery Method Room Air Weight: 145 lb 15.136 oz Body Mass Index (BMI) 23.6 Intake & Output: Intake and Output for Last 24 Hours 02/14/24 02/15/24 02/16/24 23:59 23:59 23:59 Intake Total 1000 / 1000 2725.33 / 2755.33 30 30 Output Total 1900 / 1900 1120 / 1120 Balance -900 / -900 1605.33 / 1635.33 30 Lab / Micro Data 02/16/24 06:49 02/16/24 06:49 Labs: Laboratory Results - last 24 hr 02/16/24 06:49: WBC 6.2, RBC 3.55 L, Hgb 11.1 L, Hct 34.6 L, MCV 97.5, MCH 31.3, MCHC 32.1, RDW Std Deviation 47.1 H, RDW Coeff of Tiffany 13.1, Plt Count 157, MPV 10.1, Immature Gran % (Auto) 0.200, Neut % (Auto) 57.6, Lymph % (Auto) 31.8, [place] % (Auto) 8.3, Eos % (Auto) 1.5, Baso % (Auto) 0.6, Absolute Neuts (auto) 3.6, Absolute Lymphs (auto) 1.96, Nucleated RBC % 0 Radiography Diagnostic Testing: Radiology Impression KUB X-Ray 02/15/24 05:45 IMPRESSION: 1. Nasogastric tube with the tip in left upper quadrant, likely in the body the stomach. 2. Excreted contrast in the bladder. 3. Mildly dilated small bowel worrisome for a mild partial small bowel obstruction. Electronically Signed: Dusty Lucia MD at 21:16 EDT , Physical Exam Resp normal respiratory effort Cardio regular rate GI GI Narrative: Abdomen: Soft, nondistended, tender near incision's dressed clean dry and intact, no peritoneal signs Assessment & Plan Assessment/Plan (1) S/P laparoscopy with lysis of adhesions: PLAN: Plan Plan to keep n.p.o. except for meds until patient has bowel function. Once patient has some flatus would give patient back her home when assessed. Encourage ambulation Did give patient Diflucan due to dysuria possibly from yeast infection as patient was on home antibiotics for a scheduled dental procedure prior to coming to ER. Tyra Shaffer M.D. Pager: [phone] [facility] [address] [place] [address], [facility], [address] [place] [address] Office: [phone]
[2024-02-16 07:51] LABS: Anion Gap 3 (5-15); BUN 14 mg/dL (7-18); BUN/Creat Ratio 19.2 RATIO (10-20); Calcium,Total 7.9 mg/dL (8.5-10.1); Chloride 104 mmol/L (98-107); Creatinine, Serum 0.73 mg/dL (0.55-1.02); EST Glomerular Filtration Rate 86 mL/min (>60); Est Glom Filt Rate - Afr Amer 104 mL/min (>60); Estimated Creatinine Clearance 73.84 ml/min; Glucose 91 mg/dL (74-106); Potassium 3.6 mmol/L (3.5-5.1); Sodium Level 137 mmol/L (136-145)
--- NOTE | 2024-02-16 08:05 | NURSING ---
Pt was c/o migraine symptoms. Pt had home sumatriptan in purse (closed individual package-50mg). Per Dr Shaffer, it is OK for pt to take dose of her own medication since migraine symptoms are becoming severe. Order obtained for maxalt (pharmacy equivalent) if pt needs another dose in the future. Home medication taken at 0800 02/16/24
[2024-02-16] MEDS: Pantoprazole Sodium 40 MG in 0.9% Normal Saline (100mL MB+) 100 ML 330 MG IV (10:15)
[2024-02-16] MEDS: Lactated Ringers 1,000 ML 100 ML IV (10:15)
[2024-02-16] MEDS: 0.9% Saline Lock 10 ML Syringe IV (10:15)
--- NOTE | 2024-02-16 10:44 | CASEMGMT ---
MARIO LEÓN into pt room as RO stated pt wants to speak with MARIO LEÓN. Pt states [facility] and the [place] has meals delivered and they also can deliver them to [place]. She would like information on this. Updated SW who will check into this for her.
--- NOTE | 2024-02-16 19:02 | NURSING ---
Pt's own Linzess was ordered. Pt's home medications were locked in security bag (bag #[id number]). This RN opened up previous security bag to obtain Linzess. New security bag was obtained for remaining medications. New security bag #[id number]. Slip given to pt.
[2024-02-16] MEDS: Lactated Ringers 1,000 ML 60 ML IV (20:02)
[2024-02-16] MEDS: Escitalopram Oxalate 20 MG Tablet PO (20:04)
[2024-02-16] MEDS: traZODone 100 MG Tablet 200 MG PO (20:04)
[2024-02-16] MEDS: Ketorolac 15 MG/ML Vial IV (20:05)
[2024-02-16] MEDS: hydrOXYzine PAM 25 MG Capsule PO (20:05)
[2024-02-16] MEDS: QUEtiapine 100 MG Tablet PO (20:05)
[2024-02-17 03:03] VITALS: BP 105/63; PULSE 49; RESP 18; TEMP 36.6; O2SAT 93
[2024-02-17] MEDS: Levothyroxine 75 MCG Tablet PO (06:23)
--- NOTE | 2024-02-17 07:38 | PN.SURG_ITS ---
Subjective Subjective Patient is a 63 y/o F I am following in conjunction with Dr. Shaffer. Patient evaluated resting comfortably in bed. She notes soreness/sharp constant pain in the middle of her 3 incisions. She denies nausea, vomiting, fever. She notes passing flatus . She denies bowel movements. She notes ambulating 12 times aroun d the unit and sitting in the chair. She is tolerating clear liquids and noting she had multiple bites of her daughters pizza and some chocolate covered almonds last night. She notes she is belching, however it is less and this seems to be her normal. She denies any concerns with urination at this time. Objective Data Objective Data Vital Signs: Vital Signs Temp Pulse Resp BP Pulse Ox O2 Del Method O2 Flow Rate 97.8 F 49 L 18 105/63 93 Room Air 2 02/17/24 03:03 02/17/24 03:03 02/17/24 03:03 02/17/24 03:03 02/17/24 03:03 02/17/24 03:03 02/15/24 13:15 Oxygen Flow Rate (L/min) 2 Oxygen Delivery Method Room Air Weight: 145 lb 15.136 oz Body Mass Index (BMI) 23.6 Intake & Output: Intake and Output for Last 24 Hours 02/15/24 02/16/24 02/17/24 23:59 23:59 23:59 Intake Total 2725.33 / 2755.33 2679.33 / 3029.33 350 / 350 Output Total 1120 / 1120 750 / 750 Balance 1605.33 / 1635.33 1929.33 / 2279.33 350 / 350 Lab / Micro Data 02/16/24 06:49 02/16/24 06:49 Labs: Laboratory Results - last 24 hr 02/16/24 06:49: Sodium 137, Potassium 3.6, Chloride 104, Carbon Dioxide 30.0, Anion Gap 3 L, BUN 14, Creatinine 0.73, Estim Creat Clear Calc 73.84, Est GFR (MDRD) Af Amer 104, Est GFR (MDRD) Non-Af 86, BUN/Creatinine Ratio 19.2, Glucose 91, Calcium 7.9 L Micro: Microbiology 02/14/24 21:15 Urine, Clean Catch Urine Culture - Final Mixed Gram Positive Organisms Physical Exam GI GI Narrative: Abdomen- soft, nontender with palpation. Incisions c/d/i. Minimal amount of ecchymosis surrounding the incisions. Assessment & Plan Assessment/Plan (1) S/P laparoscopy with lysis of adhesions: PLAN: I am following this patient in conjunction with Dr. Shaffer. Increase diet to full liquids Continue ambulation We will continue to monitor this patient Possible discharge later today pending bowel function and tolerating a diet Charges/Coding Visit Charges Inpatient E&M: 73272 Subs Hosp L1 (no charge; post-op)
[2024-02-17 08:08] VITALS: BP 115/64; PULSE 45; RESP 18; TEMP 36.7; O2SAT 94
[2024-02-17] MEDS: LINACLOTIDE 145 MCG CAPSULE PO (08:16)
[2024-02-17] MEDS: Pantoprazole Sodium 40 MG Tablet PO (08:19)
[2024-02-17] MEDS: Fleet Enema 133 ML RC (12:48)
[2024-02-17 14:21] VITALS: BP 121/70; PULSE 56; RESP 18; TEMP 37.3; O2SAT 98
--- NOTE | 2024-02-17 15:55 | RAD_ITS ---
STUDY: X-RAY - ABDOMEN/PELVIS REASON FOR EXAM: Female, 63 years old. abd bloating TECHNIQUE: KUB COMPARISON: February 15, 2024 FINDINGS: Normal visualized lung bases. There are multiple normal caliber loops of small bowel containing air as well as colonic air. Previously noted small bowel obstruction has resolved. Nasogastric tube has been pulled There is no demonstrated free abdominal air. The visualized liver, spleen and kidneys are grossly normal in size and morphology. Normal soft tissue structures. Normal visualized osseous structures. RAD/Abdomen Single View IMPRESSION: Findings which may be consistent with minor ileus status post resolution of prior small bowel obstruction. Electronically Signed: Lowell Deutsch MD at 17:21 EDT ,
[2024-02-17 21:24] VITALS: BP 123/69; PULSE 53; RESP 18; TEMP 36.7; O2SAT 96
[2024-02-17] MEDS: Acetaminophen 325 MG Tablet 650 MG PO (21:38)
[2024-02-17] MEDS: traZODone 100 MG Tablet 200 MG PO (21:38)
[2024-02-17] MEDS: QUEtiapine 100 MG Tablet PO (21:39)
[2024-02-17] MEDS: Escitalopram Oxalate 20 MG Tablet PO (21:39)
[2024-02-18 05:40] VITALS: BP 119/65; PULSE 41; RESP 18; TEMP 36.6; O2SAT 92
[2024-02-18] MEDS: Levothyroxine 75 MCG Tablet PO (05:52)
--- NOTE | 2024-02-18 07:59 | PN.SURG_ITS ---
Subjective Subjective Patient's KUB showed gas throughout the colon yesterday. Patient states she feels much better did pass a lot of gas this morning. Objective Data Objective Data Vital Signs: Vital Signs Temp Pulse Resp BP Pulse Ox O2 Del Method O2 Flow Rate 97.9 F 41 L 18 119/65 92 Room Air 2 02/18/24 05:40 02/18/24 05:40 02/18/24 05:40 02/18/24 05:40 02/18/24 05:40 02/18/24 05:40 02/15/24 13:15 Oxygen Flow Rate (L/min) 2 Oxygen Delivery Method Room Air Weight: 145 lb 15.136 oz Body Mass Index (BMI) 23.6 Intake & Output: Intake and Output for Last 24 Hours 02/16/24 02/17/24 02/18/24 23:59 23:59 23:59 Intake Total 2679.33 / 3029.33 380 / 380 Output Total 750 / 750 Balance 1929.33 / 2279.33 380 / 380 Lab / Micro Data 02/16/24 06:49 02/16/24 06:49 Micro: Microbiology 02/14/24 21:15 Urine, Clean Catch Urine Culture - Final Mixed Gram Positive Organisms Radiography Diagnostic Testing: Radiology Impression KUB X-Ray 02/17/24 15:55 IMPRESSION: Findings which may be consistent with minor ileus status post resolution of prior small bowel obstruction. Electronically Signed: Lowell Deutsch MD at 17:21 EDT Reading Location ID and State: [address] [place] [address] Tel , Service support , Physical Exam Const oriented x3 and no apparent distress GI GI Narrative: Abdomen- soft, nontender with palpation. Incisions c/d/i. Minimal amount of ecchymosis surrounding the incisions. Assessment & Plan Assessment/Plan (1) S/P laparoscopy with lysis of adhesions: PLAN: Plan Will start patient back on fulls as she has had a lot of flatus. Patient does well would be able to DC home. Tyra Shaffer M.D. Pager: [phone] [facility] [address] [place] [address], Outpatient [place], [address] [place] [id number] Office: [phone]
--- NOTE | 2024-02-18 08:10 | DCINST_ITS ---
Discharge Instructions Diet Discharge Diet: Light diet - advance as tolerated Activity Discharge Activity: May Not Drive (while taking narcotic pain medications.) May shower in (days): 1 Lifting Restrictions: no lifting >20 lbs x 2 wks, no strenuous exercise for 4 wks Dressing / Incision Call your doctor if your incision/area has: Continuous Slow Oozing, Sudden Increased Bleeding, Increased Pain/ Swelling, Increased Redness, Foul Smelling Discharge and Swelling at the incision site Call your doctor if you observe: Fever of 101 or Higher Remove Dressing in: 2 days Cleanse incision/area with: Soap & Water Additional Dressing/Incision Instructions:: Steri-Strips will fall off in 7 to 10 days, if they do not fall off okay to remove after 10 days. Follow Up Care Please Follow Up With: Tyra Shaffer MD When: Call the office for a follow-up appointment 2 weeks; after 5 PM and on the weekends call [phone] with any concerns. Test Results: Test results from this visit will be discussed in further detail at your follow- up appointment, if applicable. Discharge Plan Admission Admit Date/Time: 02/14/24 22:48 Attending Provider: Tyra Shaffer Primary Care Provider: Lesley León Discharge Orders/Prescriptions Prescriptions: Continued ivermectin 1 % cream 1 applic topical DAILY Qty: 45 3RF Rx Instructions: Apply topically every day to affected areas quetiapine [Seroquel] 100 mg tablet 100 mg PO QHS 90 Days Qty: 90 1RF trazodone 100 mg tablet 200 mg PO DAILY 90 Days Qty: 180 2RF hydroxyzine HCl 50 mg tablet 25 mg PO TID PRN (Reason: anxiety) clindamycin HCl 150 mg capsule 300 mg PO Q6H doxycycline hyclate 20 mg tablet 20 mg PO Q12H Patient Comments: PLEASE SEE ATTACHED FOR DETAILED DIRECTIONS escitalopram oxalate 20 mg tablet 20 mg PO DAILY sumatriptan succinate [Imitrex] 50 mg tablet 50 mg PO Q2H PRN (Reason: migraine headache) Rx Instructions: do not exceed 4 doses per 24 hrs atorvastatin 20 mg tablet 20 mg PO DAILY Qty: 90 1RF levothyroxine 75 mcg tablet See Rx Instructions .ROUTE .COMPLEX Qty: 90 0RF Dose Instruction: TAKE 1 TABLET BY MOUTH EVERY DAY Rx Instructions: TAKE 1 TABLET BY MOUTH EVERY DAY Harjeet 145 mcg capsule 145 mcg PO DAILY Qty: 90 0RF Referrals / Follow Up: Lesley León MD [Primary Care Provider] - Disposition Disposition (needs filled in before D/C Order can be placed): Home, Self Care
[2024-02-18 08:11] VITALS: BP 133/78; PULSE 52; RESP 16; TEMP 36.4; O2SAT 95
--- NOTE | 2024-02-18 08:11 | DS.PCM_ITS ---
Providers Date of Admission: 02/14/24 Primary Care Physician: Dr. Lesley León MD Reason For Visit: SBO Diagnosis Discharge Diagnosis (1) S/P laparoscopy with lysis of adhesions: Status: Acute Code(s): Z98.890 - Other specified postprocedural states Plan Will start patient back on fulls as she has had a lot of flatus. Patient does well would be able to DC home. Tyra Shaffer M.D. Pager: [phone] [facility] [address] [place] [address], [address], [address] [place] [address] Office: [phone] Medications at Discharge Home Medications hydroxyzine HCl 50 mg tablet 25 mg PO TID PRN anxiety 06/03/23 ivermectin 1 % topical cream 1 applic topical DAILY #45 grams 06/10/23 atorvastatin 20 mg tablet 20 mg PO DAILY #90 tabs 09/18/23 levothyroxine 75 mcg tablet See Rx Instructions .Route .COMPLEX #90 tabs linaclotide 145 mcg capsule (Linzess) 145 mcg PO DAILY #90 caps 01/08/24 quetiapine 100 mg tablet (Seroquel) 100 mg PO QHS 90 days #90 tabs 01/20/24 trazodone 100 mg tablet 200 mg (2 x 100 mg) PO DAILY 90 days #180 tabs 01/20/24 clindamycin HCl 150 mg capsule 300 mg PO Q6H 02/14/24 doxycycline hyclate 20 mg tablet 20 mg PO Q12H 02/14/24 escitalopram oxalate 20 mg tablet 20 mg PO DAILY 02/14/24 sumatriptan succinate 50 mg tablet (Imitrex) 50 mg PO Q2H PRN migraine headache 02/16/24 Hospital Course Operations None (Diagnostic laparoscopy, release of small bowel obstruction/internal hernia) Procedures None Summary of Care Provided Minutes Spent on Discharge: 15 Hospital Course: Patient presented to the ER due to nausea vomiting abdominal pain. Patient CT abdomen pelvis was consistent with small bowel obstruction question due to adhesion or internal hernia. Following day patient was still having abdominal pain and was taken to the OR for diagnostic laparoscopy and release of small bowel obstruction. Postoperatively patient waited to regain bowel function which took a little bit longer as patient normally needs to take Linzess daily. Patient did states she had some dysuria however this is likely due to a yeast infection as she was previously on outpatient antibiotics as she was supposed to have a dental procedure done the day after she came to the ER and the antibiotics were for that. Patient was able to tolerate diet stable to be DC'd home. Physical Exam Const oriented x3 and no apparent distress GI GI Narrative: Abdomen- soft, nontender with palpation. Incisions c/d/i. Minimal amount of ecchymosis surrounding the incisions. Weight / BMI Weight Weight: 145 lb 15.136 oz Body Mass Index (BMI) 23.6 ABG / Lab / Microbiology Data 02/16/24 06:49 02/16/24 06:49 Microbiology: Microbiology 02/14/24 21:15 Urine, Clean Catch Urine Culture - Final Mixed Gram Positive Organisms Radiography Diagnostic Testing: Radiology Impression KUB X-Ray 02/17/24 15:55 IMPRESSION: Findings which may be consistent with minor ileus status post resolution of prior small bowel obstruction. Electronically Signed: Lowell Deutsch MD at 17:21 EDT Reading Location ID and State: [address] [place] [address] Tel , Service support , D/C Instructions Discharge Diet: Light diet - advance as tolerated May shower in (days): 1 Call your doctor if your incision/area has: Continuous Slow Oozing, Sudden Increased Bleeding, Increased Pain/ Swelling, Increased Redness, Foul Smelling Discharge and Swelling at the incision site Call your doctor if you observe: Fever of 101 or Higher Cleanse incision/area with: Soap & Water Additional Dressing/Incision Instructions: Steri-Strips will fall off in 7 to 10 days, if they do not fall off okay to remove after 10 days. Please Follow Up With: Tyra Shaffer MD When: Call the office for a follow-up appointment 2 weeks; after 5 PM and on the weekends call [phone] with any concerns. Meaningful Use Info Meaningful Use Meaningful Use Diagnoses (Choose all that apply): None applicable Ischemic Stroke Statin Dosing Therapy Reference: STATIN DOSE THERAPY REFERENCE: * Patients > 75 years receive moderate or high dose statin therapy. * Patients 75 years or YOUNGER should receive HIGH intensity statin dose unless contraindicated. You will be required to document reason for non-treatment if statin daily dose does not meet guidelines. HIGH DOSE STATIN THERAPY DAILY Atorvastatin > than or = to 40 mg Rosuvastatin > than or = to 20 mg Amlodipine + Atorvastatin > than or = to 2.5/40 mg Ezetimibe + Simvastatin 10/80 mg Simvastatin 80mg Discharge Plan Admission Admit Date/Time: 02/14/24 22:48 Attending Provider: Tyra Shaffer Primary Care Provider: Lesley León Discharge Orders/Prescriptions Prescriptions: Continued ivermectin 1 % cream 1 applic topical DAILY Qty: 45 3RF Rx Instructions: Apply topically every day to affected areas quetiapine [Seroquel] 100 mg tablet 100 mg PO QHS 90 Days Qty: 90 1RF trazodone 100 mg tablet 200 mg PO DAILY 90 Days Qty: 180 2RF hydroxyzine HCl 50 mg tablet 25 mg PO TID PRN (Reason: anxiety) clindamycin HCl 150 mg capsule 300 mg PO Q6H doxycycline hyclate 20 mg tablet 20 mg PO Q12H Patient Comments: PLEASE SEE ATTACHED FOR DETAILED DIRECTIONS escitalopram oxalate 20 mg tablet 20 mg PO DAILY sumatriptan succinate [Imitrex] 50 mg tablet 50 mg PO Q2H PRN (Reason: migraine headache) Rx Instructions: do not exceed 4 doses per 24 hrs atorvastatin 20 mg tablet 20 mg PO DAILY Qty: 90 1RF levothyroxine 75 mcg tablet See Rx Instructions .ROUTE .COMPLEX Qty: 90 0RF Dose Instruction: TAKE 1 TABLET BY MOUTH EVERY DAY Rx Instructions: TAKE 1 TABLET BY MOUTH EVERY DAY Linzess 145 mcg capsule 145 mcg PO DAILY Qty: 90 0RF Referrals / Follow Up: Lesley León MD [Primary Care Provider] - Disposition Disposition (needs filled in before D/C Order can be placed): Home, Self Care
[2024-02-18] MEDS: Pantoprazole Sodium 40 MG Tablet PO (08:14)
[2024-02-18] MEDS: LINACLOTIDE 145 MCG CAPSULE PO (08:14)
--- NOTE | 2024-02-18 09:48 | CASEMGMT ---
MARIO LEÓN spoke with SW who has not received returned call regarding pt meals. MARIO LEÓN into pt room, pt sitting up in chair dressed. Pt is asking about meals. She is aware that SW is awaiting an answer and has reached out again to obtain it. Pt provided with a handout of other meal delivery companies at this time. Pt denies any further homegoing needs and is ready for dc.
--- NOTE | 2024-02-18 14:28 | PHA.DC.MR.R ---
Pharmacy [place] Med Reconciliation Pharmacy Service has performed discharge medication reconciliation for this patient. The patient's discharge medication list was reviewed for discrepancies and discrepancies were resolved. Medications at Discharge Home Medications hydroxyzine HCl 50 mg tablet 25 mg PO TID PRN anxiety 06/03/23 ivermectin 1 % topical cream 1 applic topical DAILY #45 grams 06/10/23 atorvastatin 20 mg tablet 20 mg PO DAILY #90 tabs 09/18/23 levothyroxine 75 mcg tablet See Rx Instructions .Route .COMPLEX #90 tabs 12/15/23 linaclotide 145 mcg capsule (Linzess) 145 mcg PO DAILY #90 caps 01/08/24 quetiapine 100 mg tablet (Seroquel) 100 mg PO QHS 90 days #90 tabs 01/20/24 trazodone 100 mg tablet 200 mg (2 x 100 mg) PO DAILY 90 days #180 tabs 01/20/24 clindamycin HCl 150 mg capsule 300 mg PO Q6H 02/14/24 doxycycline hyclate 20 mg tablet 20 mg PO Q12H 02/14/24 escitalopram oxalate 20 mg tablet 20 mg PO DAILY 02/14/24 sumatriptan succinate 50 mg tablet (Imitrex) 50 mg PO Q2H PRN migraine headache 02/16/24
[2024-02-18 14:33] VITALS: BP 105/76; PULSE 54; RESP 18; TEMP 36.7; O2SAT 96
== END 2024-02-18 15:37 | disposition home or self-care (01) | DRG 337 ==
LOC: ED 23:13 → MS3 23:16
PROVIDERS: Anesthesiology; Admitting Provider Surgery; Emergency Provider Emergency Medicine; PCP Internal Medicine; Visit Provider Surgery
PROC: 0DNW4ZZ Release Peritoneum, Percutaneous Endoscopic Approach (ICD-10-PCS; CPT 44202; principal; 2024-02-15 10:40)
DX: K56.50 Intestinal adhesions [bands], unspecified as to partial versus complete obstruction (principal); B37.9 Candidiasis, unspecified; F31.9 Bipolar disorder, unspecified; M79.7 Fibromyalgia; F41.1 Generalized anxiety disorder; K58.9 Irritable bowel syndrome, unspecified; Z87.891 Personal history of nicotine dependence; F43.10 Post-traumatic stress disorder, unspecified; F90.0 Attention-deficit hyperactivity disorder, predominantly inattentive type; R30.0 Dysuria
CPT/HCPCS: 36415; 74018; 74177; 80048; 80053; 81001; 83690; 84443; 85025; 87086; 87088; 93005; 94668; 97802; 99285; 99406; J7030; J7120; Q9967; A4216; C1760; J2405

== ENCOUNTER 2024-03-30 19:50 | Emergency (ER) | payer MEDICARE, SELFPAY ==
[2024-03-30 19:50] VITALS: BP 121/94; PULSE 61; RESP 18; TEMP 36.8; O2SAT 95; BMI 23.6
[2024-03-30 20:16] LABS: Mucous, Urine 0 SEEN /hpf (<or=2+); Red Blood Cells-Urine 0 SEEN /hpf (0-5); White Blood Cells 0 SEEN /hpf (0-5)
[2024-03-30 20:20] LABS: Absolute Lymphocyte Count 2.24 X10^3/uL (0.83-4.51); Absolute Neutrophil Count 4.2 X10^3/uL (2.0-7.7); Basophil# 0.06 X10^3/uL; Basophil% 0.8 % (0-1); Eosinophil# 0.03 X10^3/uL; Eosinophils% 0.4 % (0-5); Hematocrit 40.8 % (37-47); Hemoglobin 13.2 g/dL (12.0-15.0); Lymphocyte # 2.24 X10^3/ul (0.83-4.51); Lymphocyte % 31.4 % (19-41); Mean Corp Hgb Conc 32.4 g/dL (32-36); Mean Corpuscular Hgb 30.7 pg (27.0-32.0); Mean Corpuscular Volume 94.9 fL (81-99); Mean Platelet Vol. 10.3 fl (6.2-12.0); Monocyte# 0.57 X10^3/uL; NRBC Flagged by Analyzer 0 % (0-5); Neutrophil # 4.22 X10^3/uL (2.7-7.7); Neutrophil % 59.1 % (47-70); Platelet Count 218 K/mm3 (150-450); RBC Distribution Width CV 12.9 % (11.6-14.6); RBC Distribution Width SD 44.7 fl (35.1-43.9); White Blood Count 7.1 K/mm3 (4.4-11.0)
[2024-03-30 20:31] LABS: Color, Urine Yellow (Yellow); Glucose, Dipstick Normal (Normal); Ketone-Dipstick Negative (Negative); Leukocyte Esterase-Dipstick Negative /ul (Negative); Nitrite-Dipstick Negative (Negative); Occult Blood-Urine 10 /ul (Negative); Protein-Dipstick Negative (Negative); Specific Gravity, Urine 1.015 (1.002-1.030); Urine Bilirubin Dipstick Negative (Negative); Urine Clarity Clear (Clear); Urine Urobilinogen Normal (Normal)
[2024-03-30 20:34] LABS: ALB/GLOB Ratio 1.3 RATIO (0.9-2.4); AST(SGOT) 16 U/L (15-37); Alanine Aminotransfer ALT/SGPT 18 U/L (13-56); Alkaline Phosphatase 51 U/L (45-117); Anion Gap 7 (5-15); BUN 7 mg/dL (7-18); BUN/Creat Ratio 10.9 RATIO (10-20); Calcium,Total 9.4 mg/dL (8.5-10.1); Chloride 103 mmol/L (98-107); Creatinine, Serum 0.64 mg/dL (0.55-1.02); EST Glomerular Filtration Rate 99 mL/min (>60); Est Glom Filt Rate - Afr Amer 120 mL/min (>60); Estimated Creatinine Clearance 84.23 ml/min; Glucose 89 mg/dL (74-106); Potassium 3.7 mmol/L (3.5-5.1); Sodium Level 135 mmol/L (136-145)
[2024-03-30 20:48] LABS: Bacteria RARE /hpf (None Seen); Squamous Epithelial Cells - UA 0-5 SEEN /hpf (5-10)
--- NOTE | 2024-03-30 21:21 | CT_ITS ---
EXAM: CT ABDOMEN AND PELVIS WITH INTRAVENOUS CONTRAST CLINICAL INDICATION: Abdominal Pain TECHNIQUE: Helically acquired images were obtained of the abdomen and pelvis with intravenous contrast. This CT exam was performed using one or more of the following dose reduction techniques: automated exposure control, adjustment of the mA and/or kV according to patient size, and/or use of iterative reconstruction technique. CONTRAST: Oral and amp; IV Gastrografin and amp; 100mL [id number] COMPARISON: 02/14/2024 FINDINGS: LOWER THORAX: Unremarkable. Lung bases are clear. No cardiomegaly. No significant pericardial effusion. ABDOMEN: LIVER: Unremarkable. Homogeneous. No focal mass. GALLBLADDER AND BILE DUCTS: Unremarkable. No calcified gallstones. No gallbladder distention or wall edema. No intra- or extrahepatic biliary ductal dilation. PANCREAS: Unremarkable. No focal cystic or solid mass. SPLEEN: Unremarkable. Normal size without focal cystic or solid mass. ADRENALS: Unremarkable. No nodules. KIDNEYS AND URETERS: Unremarkable. Normal renal size and position. No hydronephrosis. STOMACH AND BOWEL: Unremarkable. No stomach or bowel distention. No focal inflammatory change. PELVIS: APPENDIX: No evidence of acute appendicitis. BLADDER: Unremarkable. REPRODUCTIVE: There is a 4.8 x 4.2 cm low-density lesion in the right hemipelvis compatible with ovarian cyst. There is a 2.4 x 1.6 cm low-density mass in the uterus compatible with a fibroid. ABDOMEN and PELVIS: INTRAPERITONEAL SPACE: Unremarkable. No ascites or other fluid collection. No free air. BONES/JOINTS: Unremarkable. No suspicious lytic or blastic abnormality. SOFT TISSUES: Unremarkable. No discrete abdominal or pelvic wall hernia. VASCULATURE: Unremarkable. Abdominal aorta is non-dilated. LYMPH NODES: Unremarkable. No enlarged lymph nodes. CT/Abdomen/Pelvis WITH Contrast IMPRESSION: Fluid density mass in the right hemipelvis likely representing a right ovarian cyst. There is a small uterine fibroid. No other acute abnormalities are identified. Electronically Signed: Anjum Ricardo MD at 23:24 EDT ,
--- NOTE | 2024-03-30 21:45 | ED.VIS.GI ---
HPI HPI - GI History of Present Illness Chief Complaint: Abd Pain Narrative Narrative: 63-year-old female past medical history of irritable bowel syndrome, relates history that she had surgery performed by Dr. Shaffer on February 14, over month ago because she found on internal hernia that was causing a bowel obstruction. At that time she had nausea and vomiting, and was admitted to the hospital. She and her daughter state that while she was supposed to be discharged in 2 days, she ended up staying hospitalized for 4 days. Everything has been going well until about a week ago when she states that she was constipated. She took her Linzess, and became unconstipated. Today, she began feeling pain in her right lower quadrant, the area where she had her bowel obstruction. It was only slight but has intensified. Originally, it had began in the area of her right laparoscopic incision, but now has spread across her lower abdomen. She denies any nausea or vomiting. She last had a normal bowel movement this morning as well. She was concerned about intestinal blockage again although she states that she is still passing flatus. She called the on-call physician, Dr. Giles, who recommended that she come to the emergency department for evaluation. Past surgical history does include laparoscopic surgery for lysis of adhesions. Additionally, she states that the surgery performed on February 14 was also laparoscopic. [facility] Medical History Generalized anxiety disorder Bipolar 1 disorder, depressed, severe Acute conjunctivitis, right eye Acute maxillary sinusitis, unspecified Insomnia Bowel obstruction History of psychiatric care History of suicide attempt Migraine Osteopenia OCD (obsessive compulsive disorder) ADD (attention deficit disorder) IBS (irritable colon syndrome) Fibromyalgia PTSD (post-traumatic stress disorder) Carpal tunnel syndrome Breast lump Home Medications ?Medication ?Instructions ?Recorded ?Last Taken ?Type ivermectin 1 % topical cream 1 applic topical DAILY #45 grams 06/10/23 Unknown Rx clindamycin HCl 150 mg capsule 300 mg PO Q6H 02/14/24 Unknown History doxycycline hyclate 20 mg tablet 20 mg PO Q12H 02/14/24 Unknown History atorvastatin 20 mg tablet 20 mg PO DAILY #90 tabs 02/23/24 Unknown Rx cholecalciferol (vitamin D3) 50 50 mcg PO DAILY 02/23/24 Unknown History mcg (2,000 unit) chewable tablet levothyroxine 75 mcg tablet 75 mcg PO DAILY #90 tabs 02/23/24 Unknown Rx linaclotide 145 mcg capsule 145 mcg PO DAILY #90 caps 02/23/24 Unknown Rx (Linzess) sumatriptan succinate 50 mg tablet 50 mg PO Q2H PRN migraine headache 02/23/24 Unknown Rx (Imitrex) #30 tabs epinephrine 0.3 mg/0.3 mL 0.3 ml IM Q5-15M PRN anaphylaxis 03/03/24 Unknown Rx injection, auto-injector #2 ea escitalopram oxalate 20 mg tablet 20 mg PO DAILY #90 tabs 03/08/24 Unknown Rx hydroxyzine HCl 50 mg tablet 25 mg (1/2 x 50 mg) PO TID PRN 03/08/24 Unknown Rx anxiety #90 tabs quetiapine 100 mg tablet (Seroquel) 100 mg PO QHS 90 days #90 tabs 03/08/24 Unknown Rx trazodone 100 mg tablet 200 mg (2 x 100 mg) PO DAILY 90 03/08/24 Unknown Rx days #180 tabs Allergy/AdvReac Type Severity Reaction Status Date / Time latex Allergy Severe Anaphylaxis Verified 03/30/24 19:52 Cephalosporins Allergy Mild rash Verified 03/30/24 19:52 gabapentin Allergy Mild Rash Verified 03/30/24 19:52 lamotrigine (From Lamictal) Allergy Mild rash Verified 03/30/24 19:52 Sulfa (Sulfonamide Allergy Mild rash Verified 03/30/24 19:52 Antibiotics) Penicillins Allergy rash Verified 03/30/24 19:52 Family History Father Alcoholism Cancer bladder Hypertension Mother Arthritis Osteoporosis Daughter Bipolar 1 disorder Surgical History S/P laparoscopy with lysis of adhesions History of delivery Tubal ligation status History of surgical procedure Hx of LASIK Hx of tonsillectomy H/O sinus surgery H/O arthroplasty Previous back surgery H/O laparoscopy History of carpal tunnel release History of breast biopsy History of hernia repair H/O thyroidectomy Social History household members: other details: alone current occupational status: retired 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 HEENT: No sore throat. No neck pain. No loss of vision. No rhinorrhea. Cardiovascular: No chest pain. No palpitations. No pedal edema. Respiratory: No cough, no shortness of breath. Abdominal: Right lower quadrant abdominal pain. No nausea. No vomiting. No diarrhea. Genitourinary: No dysuria. No hematuria. Musculoskeletal: No myalgias. No arthralgias. Neurologic: No headaches. No dizziness. No lightheadedness. Skin: No rash. No change in color. Psychiatric: No depression. No anxiety. EXAM Physical Exam Narrative Exam Narrative: Afebrile. Vital signs noted. HEENT: Normocephalic. Atraumatic. PERRL, EOMI. Neck soft and supple. No point tenderness or step off. Cardiovascular: Regular rate and rhythm. No murmurs, rubs, or gallops appreciated. Respiratory: No tachypnea. Lungs clear to auscultation bilaterally. Gastrointestinal: Abdomen soft, mild tenderness to palpation right lower quadrant with normoactive bowel sounds. No rebound or guarding. Well-healed laparoscopic incisions without erythema or fluctuance. Neurological: Awake. Alert. Nonfocal, nonlateralizing. Skin: No rash. Normal color. No pallor. Musculoskeletal: No pedal edema. Full range of motion extremities. Const Vital Signs: 03/30/24 19:50 03/30/24 21:50 Temperature 98.3 F Temperature Source Temporal Pulse Rate 61 65 Respiratory Rate 18 19 H Blood Pressure 121/94 H 133/82 H Blood Pressure Mean 103 99 Pulse Ox 95 98 Oxygen Delivery Method Room Air Room Air MDM MDM MDM Narrative Medical decision making narrative: In the differential diagnosis is acute appendicitis versus partial small bowel obstruction versus nonspecific abdominal pain versus IBS. Nursing protocol labs have been entered and I reviewed them. She has a normal white count of 7.1 with hemoglobin 13.2, hematocrit 40.8, platelet count normal at 218. Sodium is slightly low at 135 which I think is nonspecific. She will be bolused normal saline 1 L intravenously as she is receiving IV dye for her CT scan. AST and ALT are normal at 16 and 18. Urinalysis is negative for infection with 0 WBCs. In discussion with Dr. Giles initially, he would like both p.o. and IV contrast for the CT scan. Currently, she is awaiting CT scanning and drinking contrast. She did require/request small dose of pain medication, but did not want a full dose of morphine. She was administered morphine 2 mg intravenously and ondansetron 4 mg intravenously. At this point in time, patient was signed out to Dr. Orlando Yung to check the CT scan and discussed with Dr. Giles the results and final disposition. Currently, she is in stable condition. History & Record Review Discussion w/independent historian: Patient Lab Data Attestation: I reviewed the patient's lab results. Labs: Laboratory Results - last 24 hr 03/30/24 03/30/24 20:00 20:04 WBC 7.1 RBC 4.30 Hgb 13.2 Hct 40.8 MCV 94.9 MCH 30.7 MCHC 32.4 RDW Std Deviation 44.7 H RDW Coeff of Tiffany 12.9 Plt Count 218 MPV 10.3 Immature Gran % (Auto) 0.300 Neut % (Auto) 59.1 Lymph % (Auto) 31.4 Boundary % (Auto) 8.0 Eos % (Auto) 0.4 Baso % (Auto) 0.8 Absolute Neuts (auto) 4.2 Absolute Lymphs (auto) 2.24 Nucleated RBC % 0 Sodium 135 L Potassium 3.7 Chloride 103 Carbon Dioxide 25.0 Anion Gap 7 BUN 7 Creatinine 0.64 Estim Creat Clear Calc 84.23 Est GFR (MDRD) Af Amer 120 Est GFR (MDRD) Non-Af 99 BUN/Creatinine Ratio 10.9 Glucose 89 Calcium 9.4 Total Bilirubin 0.40 AST 16 ALT 18 Alkaline Phosphatase 51 Total Protein 7.0 Albumin 4.0 Globulin 3.0 Albumin/Globulin Ratio 1.3 Urine Color Yellow Urine Clarity Clear Urine pH 6.0 Ur Specific [place] 1.015 Urine Protein Negative Urine Glucose (UA) Normal Urine Ketones Negative Urine Occult Blood 10 H Urine Nitrite Negative Urine Bilirubin Negative Urine Urobilinogen Normal Ur Leukocyte Esterase Negative Urine RBC 0 SEEN Urine WBC 0 SEEN Ur Squamous Epith Cells 0-5 SEEN Urine Bacteria RARE Urine Mucus 0 SEEN Management Discussion w/another healthcare provider: [employer] (Dr. Giles, general surgery) Discharge Plan Triage Chief Complaint: Abd Pain ED Provider: Yehuda Knox Dx/Rx/DC Orders Prescriptions: No Action ivermectin 1 % cream 1 applic topical DAILY Qty: 45 3RF Rx Instructions: Apply topically every day to affected areas hydroxyzine HCl 50 mg tablet 25 mg PO TID PRN (Reason: anxiety) Qty: 90 2RF escitalopram oxalate 20 mg tablet 20 mg PO DAILY Qty: 90 1RF quetiapine [Seroquel] 100 mg tablet 100 mg PO QHS 90 Days Qty: 90 1RF trazodone 100 mg tablet 200 mg PO DAILY 90 Days Qty: 180 2RF cholecalciferol (vitamin D3) 50 mcg (2,000 unit) tablet,chewable 50 mcg PO DAILY levothyroxine 75 mcg tablet 75 mcg PO DAILY Qty: 90 1RF atorvastatin 20 mg tablet 20 mg PO DAILY Qty: 90 1RF Linzess 145 mcg capsule 145 mcg PO DAILY Qty: 90 1RF sumatriptan succinate [Imitrex] 50 mg tablet 50 mg PO Q2H PRN (Reason: migraine headache) Qty: 30 1RF Rx Instructions: do not exceed 4 doses per 24 hrs clindamycin HCl 150 mg capsule 300 mg PO Q6H doxycycline hyclate 20 mg tablet 20 mg PO Q12H Patient Comments: PLEASE SEE ATTACHED FOR DETAILED DIRECTIONS epinephrine 0.3 mg/0.3 mL auto-injector 0.3 ml IM Q5-15M PRN (Reason: anaphylaxis) Qty: 2 0RF Rx Instructions: do not exceed 3 doses per episode Primary Care Provider: Lesley León Referrals: Lesley León MD [Primary Care Provider] - Print Language: [place]
[2024-03-30 21:50] VITALS: BP 133/82; PULSE 65; RESP 19; O2SAT 98
[2024-03-30] MEDS: Ondansetron 4 MG/2 ML Vial IV (22:27)
[2024-03-30] MEDS: 0.9% Normal Saline (1000mL) 1,000 ML 999 ML IV (22:27)
[2024-03-30] MEDS: Morphine 2 MG/ML Syringe IV (22:27)
[2024-03-30 23:00] VITALS: BP 125/74; PULSE 62; RESP 17; O2SAT 98
[2024-03-31 00:01] VITALS: BP 117/63; PULSE 61; RESP 16; TEMP 36.6; O2SAT 96
== END 2024-03-31 00:03 | disposition home or self-care (01) ==
PROVIDERS: Emergency Provider Emergency Medicine; PCP Internal Medicine; Visit Provider Emergency Medicine
DX: R10.31 Right lower quadrant pain (principal); F31.9 Bipolar disorder, unspecified; Z87.891 Personal history of nicotine dependence; Z79.899 Other long term (current) drug therapy; Z98.51 Tubal ligation status
CPT/HCPCS: 74177; 80053; 81001; 85025; 96361; 96374; 96375; 99282; J7030; Q9967; A4216; J2405

== ENCOUNTER → 2024-04-29 | Outpatient (CLI) | payer MEDICARE, SELFPAY ==
--- NOTE | 2024-04-29 10:53 | BI_ITS ---
MAMMOGRAPHY - BILATERAL SCREENING REASON FOR EXAM: Female, 63 years old. Routine annual screening examination. PERTINENT HISTORY: Non-contributory. History of prior bilateral excisional breast biopsies. TECHNIQUE: Digital bilateral breast carolyne (3D mammographic acquisition) in the CC and MLO projections. 2-D mediolateral oblique (MLO) and craniocaudad (CC) views of both breasts were obtained. CAD: Full Field Digital Mammography with Computer Added Detection was performed. COMPARISON: Comparison is made with prior study January 29, 2023. FINDINGS: Breast Composition: The breasts are heterogeneously dense, which may obscure small masses. There are no dominant masses or suspicious calcifications. No other significant abnormalities are identified. There has been no significant change since the prior study. BI/SCRN MAMM (CAD)W/CAROLYNE BILAT IMPRESSION: Stable bilateral screening mammogram. Yearly follow-up mammogram recommended. (A) ASSESSMENT CATEGORY: BIRADS Category 1: Negative. A letter regarding these results will be sent to the patient by the facility within 30 days. Approximately 10% of breast cancers are not detected by mammography. A normal mammogram should not delay biopsy of a clinically suspicious abnormality. [id number] Electronically Signed: Velasquez Burk MD at 11:55 EDT ,
== END | disposition home or self-care (01) ==
LOC: OPBI 10:53
PROVIDERS: PCP Internal Medicine; Referring Provider Internal Medicine; Visit Provider Internal Medicine
DX: Z12.31 Encounter for screening mammogram for malignant neoplasm of breast (principal)
CPT/HCPCS: 77063; 77067

== ENCOUNTER → 2024-08-11 | Outpatient (CLI) | payer MEDICARE, SELFPAY ==
[2024-08-11 16:07] LABS: Vitamin B12 239 pg/mL (211-911); Vitamin D,25 Hydroxy 48.2 ng/mL
[2024-08-11 16:13] LABS: Cholesterol 233 mg/dL (200); High Density Lipoprotein 149 mg/dL; Triglycerides 51 mg/dL; Very Low Density Lipoprotein 10 mg/dL (5-40)
== END | disposition home or self-care (01) ==
LOC: BIMLAB 12:07
PROVIDERS: PCP Internal Medicine; Referring Provider Internal Medicine; Visit Provider Internal Medicine
DX: E78.2 Mixed hyperlipidemia (principal); E89.0 Postprocedural hypothyroidism; E55.9 Vitamin D deficiency, unspecified; E53.8 Deficiency of other specified B group vitamins
CPT/HCPCS: 36415; 80061; 82306; 82607; 84443

== ENCOUNTER 2025-03-23 13:49 | Outpatient (RCR) | payer MEDICARE, SELFPAY ==
--- NOTE | 2025-03-23 14:47 | HP.PTEVAL_ITS ---
Patient's Visit Information Visit Information Visit Information: ANN MARIE HULL is a 64 year old F referred to Physical Therapy by RAMESH Kennedy with a diagnosis of Right Hip Pain. Date of Evaluation: 03/23/25 Physical Therapist: Chasity Traore DPT Visit Plan Frequency: 1x/Week Duration: 4 Weeks Plan: Patient to buy heel lift and correct LLD of 1/2 and wear orthotics and follow up with PT in 3 weeks. Subjective Subjective: Right hip has been very painful for over a year- sometimes going upstairs she will buckle-depending on the day. Insidious onset. The pain is located on the right outside of the hip and radiates down on the outside the ITBand and it can radiate into the groin too. Worst: 04/20 Agg: turning and lifting- like getting in/out of the car, squatting, standing up from a sitting position. Eases: heat, rest. Best: 10/21. Describes the pain as gnawing. No N/T in her toes. She has no back pain. She has had x-rays of her hip a few years ago with no OA- but none recently- was diagnosed with bursitis. 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 Likes to walk but can only walk to her mailbox and back and then she is done. The pain limits her activity. Usually it radiates to the groin when she gets up and starts to walk. Sleep: problems getting to sleep but does not wake her up. No injections or anti- inflammatories. PMHx/Meds: no change since saw the MD. Objective Objective: Posture: forward head, rounded shoulders, increased weight shift to the left LE HR/TR: able without pain SLS: 10 seconds then LOB- decreased stability on the right LE- increased pelvic translation Gait: antalgic- decreased stance on the right LE- increased pelvic translation. Sensation: WNL to gross touch bilateral LLD: Left 1/4 shorter than right (per pt its 1/2) ROM: Lumbar: WNL, Hip: Right: WNL pain with end range flexion Palpation: tender along great troch and superior 1/3 of ITBand, glut med Strength: Core: fair minus, Hip: LefT: 4+/5 throughout no pain, Right: Flexion/Extn/IR/ER: 4-/5, Abd: 3+/5 with pain. Knee: 5/5, Ankle: 5/5 Flex: HS: moderate, Gastroc: moderate Special Tests R Hip TERESA - Intraarticular Pathology: Positive R Hip FADDIR - Labrum: Positive R Hip Impingement Provocation - Labrum: Negative R Hip Trendelenberg - Glut Medius: Positive Goals Goal 1:: Patient will be I with HEP and progression Goal Time Frame: 4-6 Weeks Rehabilitation Potential Physical Therapy Diagnosis: Patient presents with decreased pain free ROM, strength/stabilization, proprioception and flexibility leading to increased pain with ambulation and ADL's. Rehabilitation Potential: Fair Anticipated Interventions Patient/Client Instruction: Educate patient on: Benefits of Fitness Program Therapeutic Exercise to Include: Strength training, Endurance training, Balance training, Coordination, Agility training, Body mechanics, Postural training, Flexibilty training, Gait and locomotor training, Neuromotor development, Passive ROM, Active ROM, Dynamic Lumbar Stabilization and Scapular Strength/Stabilization For the Purpose of:: To improve muscle performance and motor function TENS: Yes Cryotherapy (ice pack, ice massage): Yes Thermo therapy (hot pack): Yes Ultrasound (thermal/non thermal): Yes Text: Thank you for the opportunity to evaluate your patient. For Medicare and Medicare HMO plans, please review the plan of care and approve it. It will need to be FAXED BACK to us at [phone] for Medicare purposes. For Medicare only, by signing this I certify the plan of care. Please let me know if there are questions or concerns regarding this plan of care. Physician Signature: Date:
--- NOTE | 2025-05-17 07:33 | HP.PT.NRP ---
Patient Information Patient Information: ANN MARIE HULL was seen in my office for initial evaluation on 03/23/25. The following Plan of Care was established for this patient: POC Established Initial Frequency: 1x/Week Initial Duration: 4 Weeks Anticipated Interventions Patient/Client Instruction: Educate patient on: Benefits of Fitness Program Therapeutic Exercise to Include: Strength training, Endurance training, Balance training, Coordination, Agility training, Body mechanics, Postural training, Flexibilty training, Gait and locomotor training, Neuromotor development, Passive ROM, Active ROM, Dynamic Lumbar Stabilization and Scapular Strength/Stabilization For the Purpose of:: To improve muscle performance and motor function TENS: Yes Cryotherapy (ice pack, ice massage): Yes Thermo therapy (hot pack): Yes Ultrasound (thermal/non thermal): Yes Last Seen Last Seen: This patient was last seen in our office . Pertinent comments regarding their Physical therapy will appear below: Patient has not attended PT in over 30 days and is appropriate to be d/c and return to MD for further evaluation as needed At this point I will be discontinuing this patient from physical therapy. I would be happy to see this patient again in the future if found appropriate by the physician. Thank you! LAM SylvesterT
== END 2025-03-23 19:00 | disposition home or self-care (01) ==
LOC: PT 13:49
PROVIDERS: PCP Internal Medicine; Referring Provider Physician Assistant; Visit Provider Physician Assistant
DX: M70.61 Trochanteric bursitis, right hip (principal)
CPT/HCPCS: 97162

== ENCOUNTER 2025-06-27 10:25 | Outpatient (RCR) | payer MEDICARE, SELFPAY ==
--- NOTE | 2025-06-27 13:49 | HP.PTEVAL ---
Patient's Visit Information Visit Information Visit Information: ANN MARIE HULL is a 64 year old F referred to Physical Therapy by RAMESH Kennedy with a diagnosis of R piriformis syndrome. Date of Evaluation: 06/27/25 Physical Therapist: Logan Helm DPT Visit Plan Frequency: 1x/Week Duration: 4 Weeks Plan: 1) R piriformis stretching 2) DFM to R piriformis prone hip ER/IR with deep pressure Subjective Subjective: Pt. is here today for her initial evaluation with diagnosis of R piriformis syndrome. Pt. reports pain having for ~2 years. Pt. does have some pain at her lateral hip, gluteal region. Increases pain: Initial standing after sitting, first few steps. Pt. reports with increased walking she does have decreased pain. Pt. has started some pigeon stretching, which does stretch where she is sore and has had some befit. Pt. reports mornings are both stiff and slow. Pt. is hopeful to reduce symptoms in order to get back to all recreational activities without limitations. Pain R hip: Pain Intensity (Out of 10): 1 Pain Intensity Range: 0 and 8 Objective Objective: POSTURE: pt. has a slight flexed posture in stance. Normal ADONAY. PALPATION: Pt. has marked tenderness at R piriformis and gluteal region. Not much pain at R greater trochanter. She had some mild pain with spring testing L3-L5 but did not effect her gluteal symptoms. NEURO: normal. ROM: Lumbar spine: full motion, mild increase in symptoms with flexion. Pt. has full L hip ROM without increase in symptoms. R hip: flexion normal NE, abd normal NE, ER 60deg increase NW (large stretch felt). ext normal. Tightness noted in R IT band as well. MMT: Pt. has good strength throughout her core and B hips. GAIT: Pt. has fairly normal without much issue. Pt. does wear a heel lift in her shoe which has helped. Balance/Special Test Scores Lower Extremity Functional Score: 55 Goals Goal 1:: LTG: Pt. to have no pain in R hip with all walking and recreational activities. Goal Time Frame: 4-6 Weeks Goal 2:: LTG: Pt. to have full R hip ROM without increase in symptoms. Goal Time Frame: 4-6 Weeks Goal 3:: LTG: Pt. to have no pain with all walking and sit to stand motions. Goal Time Frame: 4-6 Weeks Rehabilitation Potential Physical Therapy Diagnosis: Pt. has signs and symptoms consistent with R piriformis syndrome. Pt. has marked hip ER tightness and pain at gluteal region. She would benefit from PT to address the above limitations progressing back to all recreational activities. Rehabilitation Potential: Excellent Anticipated Interventions Patient/Client Instruction: Educate patient on: Condition, Plan of Care, Risk Factors and Benefits of Fitness Program For the Purpose of:: To improve decision making, To facilitate caregiver knowledge, To improve self management, To prevent re-injury, To improve ability to perform tasks related to life management and To improve tolerance to ADL's Therapeutic Exercise to Include: Strength training, Power training, Postural training, Passive ROM and Active ROM For the Purpose of:: To decrease pain, To increase ROM, To improve nutrient delivery to tissue, To increase oxygenation perfusion, To improve muscle performance and motor function, To improve ability to perform ADL's, To improve health of tissue, To decrease soft tissue restriction and To increase flexibility/ROM Manual Therapy Techniques to Include: Functional dry needling and Soft tissue mobilization For the Purpose of:: To decrease pain, To increase ROM, To improve nutrient delivery to tissue and To increase oxygenation perfusion Text: Thank you for the opportunity to evaluate your patient. For Medicare and Medicare HMO plans, please review the plan of care and approve it. It will need to be FAXED BACK to us at [phone] for Medicare purposes. For Medicare only, by signing this I certify the plan of care. Please let me know if there are questions or concerns regarding this plan of care. Physician Signature: Date:
== END 2025-06-27 19:00 | disposition home or self-care (01) ==
LOC: PT 10:25
PROVIDERS: PCP Internal Medicine; Referring Provider Physician Assistant; Visit Provider Physician Assistant
DX: G57.01 Lesion of sciatic nerve, right lower limb (principal)
CPT/HCPCS: 97161

== ENCOUNTER → 2025-06-30 | Outpatient (CLI) | payer MEDICARE, SELFPAY ==
--- NOTE | 2025-06-30 13:02 | CT_ITS ---
PROCEDURE: ABDOMEN/PELVIS WITH CONTRAST 06/30/2025 REASON FOR EXAM: ABD PAIN, CHANGE IN BM TECHNIQUE: Procedure Code: [id number] Modality: CT Procedure: ABDOMEN/PELVIS WITH CONTRAST Coronal and Sagittal reconstruction series were provided. CONTRAST: Isovue 370 VOLUME: 95 mL One or more dose reduction techniques were used (e.g., Automated exposure control, adjustment of the mA and/or kV according to patient size, use of iterative reconstruction technique. RADIATION DOSE SUMMARY: CTDlvol: 33 mGy DLP: 840 mGycm COMPARISON: March 30, 2024 FINDINGS: Lung bases: Clear Liver: Normal Gallbladder: Normal Spleen: Normal Pancreas: Normal Adrenals: Normal Kidneys: Normal Bladder: Normal Reproductive Organs: Right ovarian cyst is 4.3 x 4.7 cm. Left ovary is normal. Anteverted uterus. Left lower uterine segment fibroid is 17 mm. Bowel: Small sliding hiatus hernia. Small bowel is normal. Colon appears normal. Appendix: Normal. Lymph nodes: None appear enlarged. Vasculature: Mild atherosclerosis without aneurysm. Peritoneum / Retroperitoneum: No free air, free fluid or mass. Bones: Mild disc space narrowing L3/4. Lower lumbar facet hypertrophy. CT/Abdomen/Pelvis WITH Contrast IMPRESSION: 1. Right ovarian cyst measures up to 4.7 cm. ACR White Paper recommendations (Zacarias, et al. J Am Stacey Radiol 2020;17:248-254) suggest the following: Ultrasound should be performed promptly for further eval uation. 2. Uterine fibroid. 3. Small sliding hiatus hernia. 4. Disc space narrowing L3/4. Lower lumbar facet hypertrophy. Reading Location: [id number]
== END | disposition home or self-care (01) ==
LOC: CT 12:54
PROVIDERS: PCP Internal Medicine; Referring Provider Nurse Practitioner Family; Visit Provider Nurse Practitioner Family
DX: K43.9 Ventral hernia without obstruction or gangrene (principal)
CPT/HCPCS: 74177; Q9967

== ENCOUNTER → 2025-07-26 | Outpatient (CLI) | payer MEDICARE, SELFPAY ==
--- NOTE | 2025-07-26 11:49 | BI_ITS ---
EXAM: SCRN MAMM (CAD)W/CAROLYNE BILAT DATE: 07/26/2025 CLINICAL HISTORY: F, Age 64 y/o , SCREENING No family history. History of prior bilateral excisional breast biopsies. TECHNIQUE: Procedure Code: [id number] Modality: MG Procedure: SCRN MAMM (CAD)W/CAROLYNE BILAT COMPARISON: Prior exam(s) dated April 29, 2024.. FINDINGS: TISSUE DENSITY: The breasts are heterogeneously dense, which may obscure small masses. Bilateral Breast Mammographic Findings: No significant masses, calcifications or other abnormalities are identified. Stable small benign-appearing bilateral axillary lymph nodes. No suspicious masses, areas of developing architectural distortion, or suspicious calcifications. There has been no significant interval change. BI/SCRN MAMM (CAD)W/CAROLYNE BILAT IMPRESSION: Stable bilateral screening mammogram. OVERALL FINAL ASSESSMENT BI-RADS 2: BENIGN RECOMMENDATION: Routine annual follow-up in 1 Year Additional Recommendation none A letter with findings and recommendations will be mailed to the patient. Reading Location: [place] [id number]
--- NOTE | 2025-07-26 11:49 | BI_ITS ---
EXAM: SCRN MAMM (CAD)W/CAROLYNE BILAT DATE: 07/26/2025 CLINICAL HISTORY: F, Age 64 y/o , SCREENING No family history. History of prior bilateral excisional breast biopsies. TECHNIQUE: Procedure Code: [id number] Modality: MG Procedure: SCRN MAMM (CAD)W/CAROLYNE BILAT COMPARISON: Prior exam(s) dated April 29, 2024.. FINDINGS: TISSUE DENSITY: The breasts are heterogeneously dense, which may obscure small masses. Bilateral Breast Mammographic Findings: No significant masses, calcifications or other abnormalities are identified. Stable small benign-appearing bilateral axillary lymph nodes. No suspicious masses, areas of developing architectural distortion, or suspicious calcifications. There has been no significant interval change. BI/SCRN MAMM (CAD)W/CAROLYNE BILAT IMPRESSION: Stable bilateral screening mammogram. OVERALL FINAL ASSESSMENT BI-RADS 2: BENIGN RECOMMENDATION: Routine annual follow-up in 1 Year Additional Recommendation none A letter with findings and recommendations will be mailed to the patient. Reading Location: [place] [id number]
== END | disposition home or self-care (01) ==
LOC: OPBI 11:46
PROVIDERS: PCP Internal Medicine; Referring Provider Physician Assistant; Visit Provider Physician Assistant
DX: Z12.31 Encounter for screening mammogram for malignant neoplasm of breast (principal)
CPT/HCPCS: 77063; 77067

== ENCOUNTER 2025-09-21 07:14 | Day surgery (SDC) | payer MEDICARE, SELFPAY ==
[2025-09-21] VITALS (8 sets, daily range): BP systolic 117–150; BP diastolic 58–88; PULSE 52–70; RESP 16–20; TEMP 36–36.3; O2SAT 95–98; BMI 24.5
--- OUTSIDE RECORDS SUMMARY | 2025-09-21 07:27 | XMS RPT_ITS | CCD ---
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 Age/Sex: 64/F Location: [facility] [address] Status: Signed Intake Vital Signs 06/30/25 11:11 07/26/25 10:25 Height 5 ft 6 in 5 ft 6 in Weight: 155 lb 4 oz 160 lb BMI 25.0 25.8 BP 96/60 121/73 H Blood Pressure Location Lt brachial Rt brachial Position Sitting Sitting Respiration 16 17 Pulse 77 70 Pulse Source Monitor Monitor Temp 97.7 F L Temp Source Temporal Pulse Oximetry (%) 96 97 Oxygen Delivery Method room air room air Intake Visit Reasons: HIATAL HERNIA/COLONOSCOPY Chief Complaint: possible hernia right upperquadrant,h/o hernia with blockage/c-scope/hiata l Is patient in pain?: No Allergies latex Allergy (Severe, Verified 07/26/25 10:27) Anaphylaxis Cephalosporins Allergy (Mild, Verified 07/26/25 10:27) rash gabapentin Allergy (Mild, Verified 07/26/25 10:27) Rash lamotrigine (From Lamictal) Allergy (Mild, Verified 07/26/25 10:27) rash Sulfa (Sulfonamide Antibiotics) Allergy (Mild, Verified 07/26/25 10:27) rash Penicillins Allergy (Verified 07/26/25 10:27) rash Medications ???Medication ???Instructions ???Recorded ???Confirmed ???Type ivermectin 1 % topical cream 1 applic topical DAILY #45 grams 0 06/10/23 07/26/25 Rx doxycycline hyclate 20 mg tablet 20 mg PO Q12H 02/14/24 07/26/25 Hi story cholecalciferol (vitamin D3) 50 50 mcg PO DAILY 02/23/24 07/26/25 History mcg (2,000 unit) chewable tablet sumatriptan succinate 50 mg tablet 50 mg PO Q2H PRN migraine headac he 02/23/24 07/26/25 Rx (Imitrex) #30 tabs escitalopram oxalate 20 mg tablet 20 mg PO DAILY #90 tabs 01/31/25 07/26/25 Rx hydroxyzine HCl 25 mg tablet 25 mg PO TID PRN anxiety #90 tabs 01/31/25 07/26/25 Rx quetiapine 100 mg tablet (Seroquel) 100 mg PO QHS 90 days #90 tabs 05/10/25 07/26/25 Rx trazodone 100 mg tablet 200 mg (2 x 100 mg) PO DAILY 90 07/26/25 Rx days #180 tabs atorvastatin 20 mg tablet 20 mg PO DAILY #90 TABLETS 5 07/26/25 Rx epinephrine 0.3 mg/0.3 mL 0.3 ml IM Q5-15M PRN anaphylaxis 0 06/15/25 07/26/25 Rx injection, auto-injector #2 ea naproxen 250 mg tablet 500 mg PO QDAY PRN 06/15/25 History levothyroxine 75 mcg tablet 75 mcg PO DAILY #90 tabs 06/26/25 07/26/25 Rx cyanocobalamin (vitamin B-12) 5,000 mcg PO QDAY 06/30/25 5 History 5,000 mcg capsule linaclotide 145 mcg capsule 145 mcg PO DAILY #90 caps 06/30/25 07/26/25 Rx (Linzess) PFSH Medical History Alcohol use Nicotine dependence Generalized anxiety disorder Bipolar 1 disorder, depressed, severe Acute conjunctivitis, right eye Acute maxillary sinusitis, unspecified Insomnia Bowel obstruction History of psychiatric care History of suicide attempt Migraine Osteopenia OCD (obsessive compulsive disorder) ADD (attention deficit disorder) IBS (irritable colon syndrome) Fibromyalgia PTSD (post-traumatic stress disorder) Carpal tunnel syndrome Breast lump Surgical History S/P laparoscopy with lysis of adhesions History of delivery Tubal ligation status History of surgical procedure Hx of LASIK Hx of tonsillectomy H/O sinus surgery H/O arthroplasty Previous back surgery H/O laparoscopy History of carpal tunnel release History of breast biopsy History of hernia repair H/O thyroidectomy Family History Father Alcoholism Cancer bladder Hypertension Mother Arthritis Osteoporosis Daughter Bipolar 1 disorder Social History (Updated 07/26/25 @ 10:25 by Deanna Doherty) household members: other details: alone current occupational status: retired 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 She is concerned about an abdominal wall hernia. She is accompanied by her . She is referred from Dr. León. Approximately 5???6 weeks ago, the patient experienced acute pain while tying her (more content not included)... Normal [facility] Abdomen/Pelvis WITH Contrast on 06-30-2025 Abdomen/Pelvis WITH Contrast [facility] [address] [place] [address] Abdomen/Pelvis WITH Contrast MR#: [id number] Acct: [id number] Name: ANGELES KOEHLER Rep #: [id number] : 1960 F 64 From: Kannan Oconnor MD PCP: Dr. Johana León MD Status: REG CLI Study: Abdomen/Pelvis WITH Contrast Date of Exam: Exam# [id number] Ordering Dr: Ioana Moise PROCEDURE: ABDOMEN/PELVIS WITH CONTRAST 06/30/2025 REASON FOR EXAM: ABD PAIN, CHANGE IN BM TECHNIQUE: Procedure Code: CTABDPELW Modality: CT Procedure: ABDOMEN/PELVIS WITH CONTRAST Coronal and Sagittal reconstruction series were provided. CONTRAST: Isovue 370 VOLUME: 95 mL One or more dose reduction techniques were used (e.g., Automated exposure control, adjustment of the mA and/or kV according to patient size, use of iterative reconstruction technique. RADIATION DOSE SUMMARY: CTDlvol: 33 mGy DLP: 840 mGycm COMPARISON: March 30, 2024 FINDINGS: Lung bases: Clear Liver: Normal Gallbladder: Normal Spleen: Normal Pancreas: Normal Adrenals: Normal Kidneys: Normal Bladder: Normal Reproductive Organs: Right ovarian cyst is 4.3 x 4.7 cm. Left ovary is normal. Anteverted uterus. Left lower uterine segment fibroid is 17 mm. Bowel: Small sliding hiatus hernia. Small bowel is normal. Colon appears normal. Appendix: Normal. Lymph nodes: None appear enlarged. Vasculature: Mild atherosclerosis without aneurysm. Peritoneum / Retroperitoneum: No free air, free fluid or mass. Bones: Mild disc space narrowing L3/4. Lower lumbar facet hypertrophy. CT/Abdomen/Pelvis WITH Contrast IMPRESSION: 1. Right ovarian cyst measures up to 4.7 cm. ACR White Paper recommendations (Zacarias, et al. J Am Stacey Radiol 2020;17:248-254) suggest the following: Ultrasound should be performed promptly for further evaluation. 2. Uterine fibroid. 3. Small sliding hiatus hernia. 4. Disc space narrowing L3/4. Lower lumbar facet hypertrophy. Reading Location: [id number] CC: EDUCATION PROGRAM COORDINATORJenna Moise; Dr. Johana León MD Fiberglass Technician: Signed Normal [facility] Internal Medicine Office Vis maría 06-30-2025 Internal Medicine Office Visit [facility] [address] [place], [place] [address] OFFICE VISIT Date of Service: 06/30/25 MR#: [id number] Acct: [id number] Name: ANGELES KOEHLER Rep #: [id number] : 1960 Provider: JAMI hammer Age/Sex: 64/F Location: [facility] Status: Signed Intake Vital Signs 06/15/25 13:03 06/30/25 11:11 Height 5 ft 6 in 5 ft 6 in Weight: 156 lb 155 lb 4 oz BMI 25.2 25.0 BP 86/60 L 96/60 Blood Pressure Location Lt brachial Lt brachial Position Sitting Sitting Respiration 16 16 Pulse 55 L 77 Pulse Source Monitor Monitor Temp 97.2 F L 97.7 F L Temp Source Temporal Temporal Pulse Oximetry (%) 92 96 Oxygen Delivery Method room air room air Intake Visit Reasons: Possible hernia Chief Complaint: possible hernia right upperquadrant had one before with blockage Alumni Relations Officer Required: No Accompanied by: Self Is patient in pain?: No Allergies latex Allergy (Severe, Verified 06/30/25 11:06) Anaphylaxis Cephalosporins Allergy (Mild, Verified 06/30/25 11:06) rash gabapentin Allergy (Mild, Verified 06/30/25 11:06) Rash lamotrigine (From Lamictal) Allergy (Mild, Verified 06/30/25 11:06) rash Sulfa (Sulfonamide Antibiotics) Allergy (Mild, Verified 06/30/25 11:06) rash Penicillins Allergy (Verified 06/30/25 11:06) rash Medications ???Medication ???Instructions ???Recorded ???Confirmed ???Type ivermectin 1 % topical cream 1 applic topical DAILY #45 grams 0 06/10/23 06/30/25 Rx doxycycline hyclate 20 mg tablet 20 mg PO Q12H 02/14/24 06/30/25 Hi story cholecalciferol (vitamin D3) 50 50 mcg PO DAILY 02/23/24 06/30/25 History mcg (2,000 unit) chewable tablet sumatriptan succinate 50 mg tablet 50 mg PO Q2H PRN migraine headac he 02/23/24 06/30/25 Rx (Imitrex) #30 tabs escitalopram oxalate 20 mg tablet 20 mg PO DAILY #90 tabs 01/31/25 06/30/25 Rx hydroxyzine HCl 25 mg tablet 25 mg PO TID PRN anxiety #90 tabs 01/31/25 06/30/25 Rx quetiapine 100 mg tablet (Seroquel) 100 mg PO QHS 90 days #90 tabs 05/10/25 06/30/25 Rx trazodone 100 mg tablet 200 mg (2 x 100 mg) PO DAILY 90 06/30/25 Rx days #180 tabs atorvastatin 20 mg tablet 20 mg PO DAILY #90 TABLETS 5 06/30/25 Rx epinephrine 0.3 mg/0.3 mL 0.3 ml IM Q5-15M PRN anaphylaxis 0 06/15/25 06/30/25 Rx injection, auto-injector #2 ea naproxen 250 mg tablet 500 mg PO QDAY PRN 06/15/25 History levothyroxine 75 mcg tablet 75 mcg PO DAILY #90 tabs 06/26/25 06/30/25 Rx cyanocobalamin (vitamin B-12) 5,000 mcg PO QDAY 06/30/25 5 History 5,000 mcg capsule linaclotide 145 mcg capsule 145 mcg PO DAILY #90 caps 06/30/25 06/30/25 Rx (Linzess) PFSH Medical History Alcohol use Nicotine dependence Generalized anxiety disorder Bipolar 1 disorder, depressed, severe Acute conjunctivitis, right eye Acute maxillary sinusitis, unspecified Insomnia Bowel obstruction History of psychiatric care History of suicide attempt Migraine Osteopenia OCD (obsessive compulsive disorder) ADD (attention deficit disorder) IBS (irritable colon syndrome) Fibromyalgia PTSD (post-traumatic stress disorder) Carpal tunnel syndrome Breast lump Surgical History S/P laparoscopy with lysis of adhesions History of delivery Tubal ligation status History of surgical procedure Hx of LASIK Hx of tonsillectomy H/O sinus surgery H/O arthroplasty Previous back surgery H/O laparoscopy History of carpal tunnel release History of breast biopsy History of hernia repair H/O thyroidectomy Family History Father Alcoholism Cancer bladder Hypertension Mother Arthritis Osteoporosis Daughter Bipolar 1 disorder Social History household members: other details: alone current occupational status: retired 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 Patient denies any nausea vomiting or diarrhea. Patient states she was bending over to tie her shoes when she felt a pop in her right upper quadrant. States this pain is very similar to what (more content not included)... Normal [facility] Inital Evaluation (1) - PTon 06-27-2025 Inital Evaluation (1) - PT [facility] Physical Therapy [facility] [address] [place] [address]. [address] [place] [address] / REHABILITATION SERVICES INITIAL EVALUATION MR#: [id number] Acct: [id number] Name: ANGELES KOEHLER Rep #: [id number] : 1960 64 From: Logan Helm DPT Referring DrNilda: RAMESH Kennedy Status: REG RCR Insurance: MEDICARE PART A B SELF PAY INSURANCE Patient's Visit Information Visit Information Visit Information: ANGELES KOEHLER is a 64 year old F referred to Physical Therapy by RAMESH Kennedy with a diagnosis of R piriformis syndrome. Date of Evaluation: 06/27/25 Physical Therapist: Logan Helm DPT Visit Plan Frequency: 1x/Week Duration: 4 Weeks Plan: 1) R piriformis stretching 2) DFM to R piriformis prone hip ER/IR with deep pressure Subjective Subjective: Pt. is here today for her initial evaluation with diagnosis of R piriformis syndrome. Pt. reports pain having for 2 years. Pt. does have some pain at her lateral hip, gluteal region. Increases pain: Initial standing after sitting, first few steps. Pt. reports with increased walking she does have decreased pain. Pt. has started some pigeon stretching, which does stretch where she is sore and has had some befit. Pt. reports mornings are both stiff and slow. Pt. is hopeful to reduce symptoms in order to get back to all recreational activities without limitations. Pain R hip: Pain Intensity (Out of 10): 1 Pain Intensity Range: 0 and 8 Objective Objective: POSTURE: pt. has a slight flexed posture in stance. Normal ADONAY. PALPATION: Pt. has marked tenderness at R piriformis and gluteal region. Not much pain at R greater trochanter. She had some mild pain with spring testing L3-L5 but did not effect her gluteal symptoms. NEURO: normal. ROM: Lumbar spine: full motion, mild increase in symptoms with flexion. Pt. has full L hip ROM without increase in symptoms. R hip: flexion normal NE, abd normal NE, ER 60deg increase NW (large stretch felt). ext normal. Tightness noted in R IT band as well. MMT: Pt. has good strength throughout her core and B hips. GAIT: Pt. has fairly normal without much issue. Pt. does wear a heel lift in her shoe which has helped. Balance/Special Test Scores Lower Extremity Functional Score: 55 Goals Goal 1:: LTG: Pt. to have no pain in R hip with all walking and recreational activities. Goal Time Frame: 4-6 Weeks Goal 2:: LTG: Pt. to have full R hip ROM without increase in symptoms. Goal Time Frame: 4-6 Weeks Goal 3:: LTG: Pt. to have no pain with all walking and sit to stand motions. Goal Time Frame: 4-6 Weeks Rehabilitation Potential Physical Therapy Diagnosis: Pt. has signs and symptoms consistent with R piriformis syndrome. Pt. has marked hip ER tightness and pain at gluteal region. She would benefit from PT to address the above limitations progressing back to all recreational activities. Rehabilitation Potential: Excellent Anticipated Interventions Patient/Client Instruction: Educate patient on: Condition, Plan of Care, Risk Factors and Benefits of Fitness Program For the Purpose of:: To improve decision making, To facilitate caregiver knowledge, To improve self management, To prevent re-injury, To improve ability to perform tasks related to life management and To improve tolerance to ADL's Therapeutic Exercise to Include: Strength training, Power training, Postural training, Passive ROM and Active ROM For the Purpose of:: To decrease pain, To increase ROM, To improve nutrient delivery to tissue, To increase oxygenation perfusion, To improve muscle performance and motor function, To improve ability to perform ADL's, To improve health of tissue, To decrease soft tissue restriction and To increase flexibility/ROM Manual Therapy Techniques to Include: Functional dry needling and Soft tissue mobilization For the Purpose of:: To decrease pain, To increase ROM, To improve nutrient delivery to tissue and To increase oxygenation perfusion Text: Thank you for the opportunity to evaluate your patient. For Medicare and Medicare HMO plans, please review the plan of care and approve it. It will need to be FAXED BACK to us at [phone] for Medicare purposes. For Medicare only, by signing this I certify the plan of care. Please let me know if there are questions or concerns regarding this plan of care. Physician Signature: Date:__ 06/27/25 1349 CC: Dr. Johana León MD; RAMESH Kennedy CLS Signed Normal [facility] Internal Medicine Office Vis itoshailesh 06-15-2025 Internal Medicine Office Visit [facility] [address] [place] [address] [place] [address] OFFICE VISIT Date of Service: 06/15/25 MR#: [id number] Acct: [id number] Name: ANGELES KOEHLER Rep #: [id number] : 1960 Provider: RAMESH Kennedy Age/Sex: 64/F Location: [facility] Status: Signed Intake Vital Signs 05/10/25 10:29 06/15/25 13:03 Height 5 ft 6 in 5 ft 6 in Weight: 153 lb 156 lb BMI 24.7 25.2 BP 145/87 H 86/60 L Blood Pressure Location Lt brachial Lt brachial Position Sitting Sitting Respiration 16 16 Pulse 65 55 L Pulse Source Monitor Monitor Temp 97.2 F L Temp Source Temporal Pulse Oximetry (%) 92 Oxygen Delivery Method room air Intake Visit Reasons: Test orders. Medication. Alumni Relations Officer Required: No Accompanied by: Self Is patient in pain?: Yes (right hip) Pain scale (1-10): 4 Allergies latex Allergy (Severe, Verified 06/15/25 13:01) Anaphylaxis Cephalosporins Allergy (Mild, Verified 06/15/25 13:01) rash gabapentin Allergy (Mild, Verified 06/15/25 13:01) Rash lamotrigine (From Lamictal) Allergy (Mild, Verified 06/15/25 13:01) rash Sulfa (Sulfonamide Antibiotics) Allergy (Mild, Verified 06/15/25 13:01) rash Penicillins Allergy (Verified 06/15/25 13:01) rash Medications ???Medication ???Instructions ???Recorded ???Confirmed ???Type ivermectin 1 % topical cream 1 applic topical DAILY #45 grams 0 06/10/23 06/15/25 Rx doxycycline hyclate 20 mg tablet 20 mg PO Q12H 02/14/24 06/15/25 Hi story cholecalciferol (vitamin D3) 50 50 mcg PO DAILY 02/23/24 06/15/25 History mcg (2,000 unit) chewable tablet sumatriptan succinate 50 mg tablet 50 mg PO Q2H PRN migraine headac he 02/23/24 06/15/25 Rx (Imitrex) #30 tabs escitalopram oxalate 20 mg tablet 20 mg PO DAILY #90 tabs 01/31/25 06/15/25 Rx hydroxyzine HCl 25 mg tablet 25 mg PO TID PRN anxiety #90 tabs 01/31/25 06/15/25 Rx linaclotide 145 mcg capsule 145 mcg PO DAILY #90 caps 02/21/25 06/15/25 Rx (Linzess) levothyroxine 75 mcg tablet 75 mcg PO DAILY #90 tabs 03/27/25 06/15/25 Rx quetiapine 100 mg tablet (Seroquel) 100 mg PO QHS 90 days #90 tabs 05/10/25 06/15/25 Rx trazodone 100 mg tablet 200 mg (2 x 100 mg) PO DAILY 90 06/15/25 Rx days #180 tabs atorvastatin 20 mg tablet 20 mg PO DAILY #90 TABLETS 5 06/15/25 Rx epinephrine 0.3 mg/0.3 mL 0.3 ml IM Q5-15M PRN anaphylaxis 0 06/15/25 06/15/25 Rx injection, auto-injector #2 ea naproxen 250 mg tablet 500 mg PO QDAY PRN 06/15/25 History PFSH Medical History Alcohol use Nicotine dependence Generalized anxiety disorder Bipolar 1 disorder, depressed, severe Acute conjunctivitis, right eye Acute maxillary sinusitis, unspecified Insomnia Bowel obstruction History of psychiatric care History of suicide attempt Migraine Osteopenia OCD (obsessive compulsive disorder) ADD (attention deficit disorder) IBS (irritable colon syndrome) Fibromyalgia PTSD (post-traumatic stress disorder) Carpal tunnel syndrome Breast lump Surgical History S/P laparoscopy with lysis of adhesions History of delivery Tubal ligation status History of surgical procedure Hx of LASIK Hx of tonsillectomy H/O sinus surgery H/O arthroplasty Previous back surgery H/O laparoscopy History of carpal tunnel release History of breast biopsy History of hernia repair H/O thyroidectomy Family History Father Alcoholism Cancer bladder Hypertension Mother Arthritis Osteoporosis Daughter Bipolar 1 disorder Social History household members: other details: alone current occupational status: retired 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 She needs orders for PAP smear, mammograms, and colonoscopies She states that her mammograms have been done at the hospital and would like to have that set up over there. She would like to see Dr. Shaffer for the colonoscopy. She states that she believes that her last colonoscopy was in 2013. She states that she was told she has the weirdest colon that the provider had seen at that time. She (more content not included)... Normal [facility] MR/BMS.BPon 05-10-2025 MR/BMS.BP [facility] [address], [address] [place] [address] OFFICE VISIT Date of Service: 05/10/25 MR#: [id number] Acct: [id number] Name: ANGELES KOEHLER Rep #: [id number] : 1960 Provider: Dr. Chuck Gonzalez se, DO Age/Sex: 64/F Location: [facility] Status: Signed Intake Vital Signs 01/31/25 10:35 03/15/25 11:02 05/10/25 10:29 Height 5 ft 6 in 5 ft 6 in 5 ft 6 in Weight: 153 lb BMI 24.7 BP 145/87 H Blood Pressure Location Lt brachial Position Sitting Respiration 16 Pulse 65 Pulse Source Monitor BP Intake Visit Reasons: Follow up Accompanied by: Self Allergies latex Allergy (Severe, Verified 05/10/25 10:32) Anaphylaxis Cephalosporins Allergy (Mild, Verified 05/10/25 10:32) rash gabapentin Allergy (Mild, Verified 05/10/25 10:32) Rash lamotrigine (From Lamictal) Allergy (Mild, Verified 05/10/25 10:32) rash Sulfa (Sulfonamide Antibiotics) Allergy (Mild, Verified 05/10/25 10:32) rash Penicillins Allergy (Verified 05/10/25 10:32) rash Medications ???Medication ???Instructions ???Recorded ???Confirmed ???Type ivermectin 1 % topical cream 1 applic topical DAILY #45 grams 0 06/10/23 05/10/25 Rx doxycycline hyclate 20 mg tablet 20 mg PO Q12H 02/14/24 05/10/25 Hi story cholecalciferol (vitamin D3) 50 50 mcg PO DAILY 02/23/24 05/10/25 History mcg (2,000 unit) chewable tablet sumatriptan succinate 50 mg tablet 50 mg PO Q2H PRN migraine headac he 02/23/24 05/10/25 Rx (Imitrex) #30 tabs epinephrine 0.3 mg/0.3 mL 0.3 ml IM Q5-15M PRN anaphylaxis 0 03/03/24 05/10/25 Rx injection, auto-injector #2 ea escitalopram oxalate 20 mg tablet 20 mg PO DAILY #90 tabs 01/31/25 05/10/25 Rx hydroxyzine HCl 25 mg tablet 25 mg PO TID PRN anxiety #90 tabs 01/31/25 05/10/25 Rx atorvastatin 20 mg tablet 20 mg PO DAILY #90 tabs 02/20/25 0 05/10/25 Rx linaclotide 145 mcg capsule 145 mcg PO DAILY #90 caps 02/21/25 05/10/25 Rx (Linzess) naproxen 250 mg tablet 500 mg PO ONCE 03/15/25 05/10/25 H istory levothyroxine 75 mcg tablet 75 mcg PO DAILY #90 tabs 03/27/25 05/10/25 Rx clonidine HCl 0.1 mg tablet 0.1 mg PO BID PRN anxiety #60 tabs 05/10/25 05/10/25 Rx quetiapine 100 mg tablet (Seroquel) 100 mg PO QHS 90 days #90 tabs 05/10/25 05/10/25 Rx trazodone 100 mg tablet 200 mg (2 x 100 mg) PO DAILY 90 05/10/25 Rx days #180 tabs PFSH Medical History Alcohol use Nicotine dependence Generalized anxiety disorder Bipolar 1 disorder, depressed, severe Acute conjunctivitis, right eye Acute maxillary sinusitis, unspecified Insomnia Bowel obstruction History of psychiatric care History of suicide attempt Migraine Osteopenia OCD (obsessive compulsive disorder) ADD (attention deficit disorder) IBS (irritable colon syndrome) Fibromyalgia PTSD (post-traumatic stress disorder) Carpal tunnel syndrome Breast lump Surgical History S/P laparoscopy with lysis of adhesions History of delivery Tubal ligation status History of surgical procedure Hx of LASIK Hx of tonsillectomy H/O sinus surgery H/O arthroplasty Previous back surgery H/O laparoscopy History of carpal tunnel release History of breast biopsy History of hernia repair H/O thyroidectomy Family History Father Alcoholism Cancer bladder Hypertension Mother Arthritis Osteoporosis Daughter Bipolar 1 disorder Social History household members: other details: alone current occupational status: retired 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 Patient reports that she has been having some crippling anxiety and difficulty moving forward. Reports that her drinking has increased in recent past, drinking at least 1 bottle of wine per day. This has effected relationship with her daughter. Essentially has been told by daughter that if she doesn't quit drinking she will have to stop spending time together. Only lived with daughter for about a week before moving back to her house while it was being renovated. The renovation just finished recently. Recently went to [place] for a week then to [place] for a wedding then returned (more content not included)... Normal [facility] Inital Evaluation (1) - PTon 03-23-2025 Inital Evaluation (1) - PT [facility] Physical Therapy [facility] [address] [place] [address] / REHABILITATION SERVICES INITIAL EVALUATION MR#: [id number] Acct: [id number] Name: ANGELES KOEHLER Rep #: [id number] : 1960 64 From: Chasity Traore DPT Referring Dr.: RAMESH Kennedy Status: REG RCR Insurance: MEDICARE PART A B SELF PAY INSURANCE Patient's Visit Information Visit Information Visit Information: ANGELES KOEHLER is a 64 year old F referred to Physical Therapy by RAMESH Kennedy with a diagnosis of Right Hip Pain. Date of Evaluation: 03/23/25 Physical Therapist: Chasity Traore DPT Visit Plan Frequency: 1x/Week Duration: 4 Weeks Plan: Patient to buy heel lift and correct LLD of 1/2 and wear orthotics and follow up with PT in 3 weeks. Subjective Subjective: Right hip has been very painful for over a year- sometimes going upstairs she will buckle-depending on the day. Insidious onset. The pain is located on the right outside of the hip and radiates down on the outside the ITBand and it can radiate into the groin too. Worst: 04/20 Agg: turning and lifting- like getting in/out of the car, squatting, standing up from a sitting position. Eases: heat, rest. Best: 10/21. Describes the pain as gnawing. No N/T in her toes. She has no back pain. She has had x-rays of her hip a few years ago with no OA- but none recently- was diagnosed with bursitis. 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 Likes to walk but can only walk to her mailbox and back and then she is done. The pain limits her activity. Usually it radiates to the groin when she gets up and starts to walk. Sleep: problems getting to sleep but does not wake her up. No injections or anti-inflammatories. PMHx/Meds: no change since saw the MD. Objective Objective: Posture: forward head, rounded shoulders, increased weight shift to the left LE HR/TR: able without pain SLS: 10 seconds then LOB- decreased stability on the right LE- increased pelvic translation Gait: antalgic- decreased stance on the right LE- increased pelvic translation. Sensation: WNL to gross touch bilateral LLD: Left 1/4 shorter than right (per pt its 1/2) ROM: Lumbar: WNL, Hip: Right: WNL pain with end range flexion Palpation: tender along great troch and superior 1/3 of ITBand, glut med Strength: Core: fair minus, Hip: LefT: 4+/5 throughout no pain, Right: Flexion/Extn/IR/ER: 4-/5, Abd: 3+/5 with pain. Knee: 5/5, Ankle: 5/5 Flex: HS: moderate, Gastroc: moderate Special Tests R Hip TERESA - Intraarticular Pathology: Positive R Hip FADDIR - Labrum: Positive R Hip Impingement Provocation - Labrum: Negative R Hip Trendelenberg - Glut Medius: Positive Goals Goal 1:: Patient will be I with HEP and progression Goal Time Frame: 4-6 Weeks Rehabilitation Potential Physical Therapy Diagnosis: Patient presents with decreased pain free ROM, strength/stabilization , proprioception and flexibility leading to increased pain with ambulation and ADL's. Rehabilitation Potential: Fair Anticipated Interventions Patient/Client Instruction: Educate patient on: Benefits of Fitness Program Therapeutic Exercise to Include: Strength training, Endurance training, Balance training, Coordination, Agility training, Body mechanics, Postural training, Flexibilty training, Gait and locomotor training, Neuromotor development, Passive ROM, Active ROM, Dynamic Lumbar Stabilization and Scapular Strength/Stabilization For the Purpose of:: To improve muscle performance and motor function TENS: Yes Cryotherapy (ice pack, ice massage): Yes Thermo therapy (hot pack): Yes Ultrasound (thermal/non thermal): Yes Text: Thank you for the opportunity to evaluate your patient. For Medicare and Medicare HMO plans, please review the plan of care and approve it. It will need to be FAXED BACK to us at [phone] for Medicare purposes. For Medicare only, by signing this I certify the plan of care. Please let me know if there are questions or concerns regarding this plan of care. Physician Signature: Date:__ 03/23/25 1447 CC: Dr. Johana León MD; RAMESH Kennedy ELR Signed Normal [facility] Inital Evaluation (1) - PT [facility] Physical Therapy [facility] [address] [place] [address] / REHABILITATION SERVICES INITIAL EVALUATION MR#: [id number] Acct: [id number] Name: ANGELES KOEHLER Rep #: [id number] : 1960 64 From: Chasity Traore DPT Referring Dr.: RAMESH Kennedy Status: REG RCR Insurance: MEDICARE PART A B SELF PAY INSURANCE Patient's Visit Information Visit Information Visit Information: ANGELES KOEHLER is a 64 year old F referred to Physical Therapy by RAMESH Kennedy with a diagnosis of Right Hip Pain. Date of Evaluation: 03/23/25 Physical Therapist: Chasity Traore DPT Visit Plan Frequency: 1x/Week Duration: 4 Weeks Plan: Patient to buy heel lift and correct LLD of 1/2 and wear orthotics and follow up with PT in 3 weeks. Subjective Subjective: Right hip has been very painful for over a year- sometimes going upstairs she will buckle-depending on the day. Insidious onset. The pain is located on the right outside of the hip and radiates down on the outside the ITBand and it can radiate into the groin too. Worst: 10 Agg: turning and lifting- like getting in/out of the car, squatting, standing up from a sitting position. Eases: heat, rest. Best: /10. Describes the pain as gnawing. No N/T in her toes. She has no back pain. She has had x-rays of her hip a few years ago with no OA- but none recently- was diagnosed with bursitis. 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 Helps babysit grandchildren- 7/5/3 years old- so she is lifting- frequently. Likes to walk but can only walk to her mailbox and back and then she is done. The pain limits her activity. Usually it radiates to the groin when she gets up and starts to walk. Sleep: problems getting to sleep but does not wake her up. No injections or anti-inflammatories. PMHx/Meds: no change since saw the MD. Objective Objective: Posture: forward head, rounded shoulders, increased weight shift to the left LE HR/TR: able without pain SLS: 10 seconds then LOB- decreased stability on the right LE- increased pelvic translation Gait: antalgic- decreased stance on the right LE- increased pelvic translation. Sensation: WNL to gross touch bilateral LLD: Left 1/4 shorter than right (per pt its 1/2) ROM: Lumbar: WNL, Hip: Right: WNL pain with end range flexion Palpation: tender along great troch and superior 1/3 of ITBand, glut med Strength: Core: fair minus, Hip: LefT: 4+/5 throughout no pain, Right: Flexion/Extn/IR/ER: 4-/5, Abd: 3+/5 with pain. Knee: 5/5, Ankle: 5/5 Flex: HS: moderate, Gastroc: moderate Special Tests R Hip TERESA - Intraarticular Pathology: Positive R Hip FADDIR - Labrum: Positive R Hip Impingement Provocation - Labrum: Negative R Hip Trendelenberg - Glut Medius: Positive Goals Goal 1:: Patient will be I with HEP and progression Goal Time Frame: 4-6 Weeks Rehabilitation Potential Physical Therapy Diagnosis: Patient presents with decreased pain free ROM, strength/stabilization , proprioception and flexibility leading to increased pain with ambulation and ADL's. Rehabilitation Potential: Fair Anticipated Interventions Patient/Client Instruction: Educate patient on: Benefits of Fitness Program Therapeutic Exercise to Include: Strength training, Endurance training, Balance training, Coordination, Agility training, Body mechanics, Postural training, Flexibilty training, Gait and locomotor training, Neuromotor development, Passive ROM, Active ROM, Dynamic Lumbar Stabilization and Scapular Strength/Stabilization For the Purpose of:: To improve muscle performance and motor function TENS: Yes Cryotherapy (ice pack, ice massage): Yes Thermo therapy (hot pack): Yes Ultrasound (thermal/non thermal): Yes Text: Thank you for the opportunity to evaluate your patient. For Medicare and Medicare HMO plans, please review the plan of care and approve it. It will need to be FAXED BACK to us at [phone] for Medicare purposes. For Medicare only, by signing this I certify the plan of care. Please let me know if there are questions or concerns regarding this plan of care. Physician Signature: Date:__ 03/23/25 1447 CC: Dr. Johana León MD; RAMESH Kennedy ELR Signed Normal [facility] Internal Medicine Office Vis iton 03-15-2025 Internal Medicine Office Visit [facility] [address] [place] [address] [place] [address] OFFICE VISIT Date of Service: 03/15/25 MR#: [id number] Acct: [id number] Name: ANGELES KOEHLER Rep #: [id number] : 1960 Provider: RAMESH Kennedy Age/Sex: 64/F Location: [facility] Status: Signed Intake Vital Signs 01/31/25 10:35 03/15/25 11:02 Height 5 ft 6 in 5 ft 6 in Weight: 152 lb BMI 24.5 BP 118/62 Blood Pressure Location Lt brachial Position Sitting Respiration 18 Pulse 72 Pulse Source Monitor Temp 97.8 F Temp Source Temporal Pulse Oximetry (%) 98 Oxygen Delivery Method room air Intake Visit Reasons: acute - pain in both hips Chief Complaint: acute-pain in both hips Is patient in pain?: Yes (4 bilateral hips ) Allergies latex Allergy (Severe, Verified 03/15/25 11:00) Anaphylaxis Cephalosporins Allergy (Mild, Verified 03/15/25 11:00) rash gabapentin Allergy (Mild, Verified 03/15/25 11:00) Rash lamotrigine (From Lamictal) Allergy (Mild, Verified 03/15/25 11:00) rash Sulfa (Sulfonamide Antibiotics) Allergy (Mild, Verified 03/15/25 11:00) rash Penicillins Allergy (Verified 03/15/25 11:00) rash Medications ???Medication ???Instructions ???Recorded ???Confirmed ???Type ivermectin 1 % topical cream 1 applic topical DAILY #45 grams 0 06/10/23 03/15/25 Rx doxycycline hyclate 20 mg tablet 20 mg PO Q12H 02/14/24 03/15/25 Hi story cholecalciferol (vitamin D3) 50 50 mcg PO DAILY 02/23/24 03/15/25 History mcg (2,000 unit) chewable tablet sumatriptan succinate 50 mg tablet 50 mg PO Q2H PRN migraine headac he 02/23/24 03/15/25 Rx (Imitrex) #30 tabs epinephrine 0.3 mg/0.3 mL 0.3 ml IM Q5-15M PRN anaphylaxis 0 03/03/24 03/15/25 Rx injection, auto-injector #2 ea levothyroxine 75 mcg tablet 75 mcg PO DAILY #90 tabs 08/11/24 03/15/25 Rx escitalopram oxalate 20 mg tablet 20 mg PO DAILY #90 tabs 01/31/25 03/15/25 Rx hydroxyzine HCl 25 mg tablet 25 mg PO TID PRN anxiety #90 tabs 01/31/25 03/15/25 Rx quetiapine 100 mg tablet (Seroquel) 100 mg PO QHS 90 days #90 tabs 01/31/25 03/15/25 Rx trazodone 100 mg tablet 200 mg (2 x 100 mg) PO DAILY 90 03/15/25 Rx days #180 tabs atorvastatin 20 mg tablet 20 mg PO DAILY #90 tabs 02/20/25 0 03/15/25 Rx linaclotide 145 mcg capsule 145 mcg PO DAILY #90 caps 02/21/25 03/15/25 Rx (Linzess) naproxen 250 mg tablet 500 mg PO ONCE 03/15/25 03/15/25 H istory Nurse's Note: pt reports she has been having bilateral hip pain (worse in the right hip) pt states that she feels that pain has worsened to the point it affects her daily functioning. pt states that she believes she had imaging done 2-3 years ago that showed she had bursitis. reports she was advised on exercises she could use to alleviate this however states the exercises were to painful for her to do. [facility] Medical History Alcohol use Nicotine dependence Generalized anxiety disorder Bipolar 1 disorder, depressed, severe Acute conjunctivitis, right eye Acute maxillary sinusitis, unspecified Insomnia Bowel obstruction History of psychiatric care History of suicide attempt Migraine Osteopenia OCD (obsessive compulsive disorder) ADD (attention deficit disorder) IBS (irritable colon syndrome) Fibromyalgia PTSD (post-traumatic stress disorder) Carpal tunnel syndrome Breast lump Surgical History S/P laparoscopy with lysis of adhesions History of delivery Tubal ligation status History of surgical procedure Hx of LASIK Hx of tonsillectomy H/O sinus surgery H/O arthroplasty Previous back surgery H/O laparoscopy History of carpal tunnel release History of breast biopsy History of hernia repair H/O thyroidectomy Family History Father Alcoholism Cancer bladder Hypertension Mother Arthritis Osteoporosis Daughter Bipolar 1 disorder Social History household members: other details: alone current occupational status: retired 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 Patient states that she has been having pains on and off for years. She had Xrays done a few years ago. She was given some exercises (more content not included)... Normal [facility] MR/BMS.BPon 01-31-2025 MR/BMS.BP [address], [address] [place] [address] OFFICE VISIT Date of Service: 01/31/25 MR#: [id number] Acct: [id number] Name: ANGELES KOEHLER Rep #: [id number] : 1960 Provider: Dr. Chuck Gonzalez se, DO Age/Sex: 64/F Location: [facility] Status: Signed Intake Vital Signs 11/02/24 10:21 01/31/25 10:35 Height 5 ft 6 in 5 ft 6 in Weight: 152 lb BMI 24.5 BP 147/73 H Blood Pressure Location Lt brachial Position Sitting Respiration 16 Pulse 57 L Pulse Source Monitor BP Intake Visit Reasons: 3mfu Allergies latex Allergy (Severe, Verified 11/02/24 10:24) Anaphylaxis Cephalosporins Allergy (Mild, Verified 11/02/24 10:24) rash gabapentin Allergy (Mild, Verified 11/02/24 10:24) Rash lamotrigine (From Lamictal) Allergy (Mild, Verified 11/02/24 10:24) rash Sulfa (Sulfonamide Antibiotics) Allergy (Mild, Verified 11/02/24 10:24) rash Penicillins Allergy (Verified 11/02/24 10:24) rash PFSH Medical History (Updated 11/03/24 @ 06:[address] Chuck Link, DO) Alcohol use Nicotine dependence Generalized anxiety disorder Bipolar 1 disorder, depressed, severe Acute conjunctivitis, right eye Acute maxillary sinusitis, unspecified Insomnia Bowel obstruction History of psychiatric care History of suicide attempt Migraine Osteopenia OCD (obsessive compulsive disorder) ADD (attention deficit disorder) IBS (irritable colon syndrome) Fibromyalgia PTSD (post-traumatic stress disorder) Carpal tunnel syndrome Breast lump Surgical History S/P laparoscopy with lysis of adhesions History of delivery Tubal ligation status History of surgical procedure Hx of LASIK Hx of tonsillectomy H/O sinus surgery H/O arthroplasty Previous back surgery H/O laparoscopy History of carpal tunnel release History of breast biopsy History of hernia repair H/O thyroidectomy Family History Father Alcoholism Cancer bladder Hypertension Mother Arthritis Osteoporosis Daughter Bipolar 1 disorder Social History (Updated 08/11/24 @ 11:[address] 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 Patient reports that she has been better, but feels like happiness is eluding her. has gone back to [place] as of December, and will likely be back there for prolonged period. Has been living with with her daughter for the last week as her house is getting remodeled. Will likely be there for several months. Her daughter does have an hydraulic engineer which has taken some of the stress off of her in babysitting. Althought despite this, doesn't feel like she agrees with daughter's child rearing. Whole family (daughter, KRISTINA and kids) will be traveling back to [place] in February. Has reduced her smoking down to about 5-7 cigarettes per day. Also has reduced how much she is drinking, to maybe 3 drinks at night vs 4-5 at bedtime. Has been having trouble sleeping. Woke up early this morning and has been having trouble staying asleep. Has been trying to lose weight, but is unsure if she has or not. Feels like medications are working largely well. Is very good about taking regularly.Has not been doing any therapy at this time. Had been following with Cora Torre, but hadn't seen since the beginning of December. Denies SI/HI or AVH. Review of Systems Constitutional Denies: fever(s), chills, change in weight or fatigue Eyes Denies: change in vision or blurry vision Ears, Nose, Mouth, Throat Denies: throat pain, neck pain or change in hearing Cardiovascular Denies: chest pain, palpitations or dyspnea Respiratory Denies: dyspnea, cough or wheezing Gastrointestinal Denies: abdominal pain, nausea, vomiting, diarrhea or constipation Genitourinary Denies: dysuria or urinary frequency Musculoskeletal Denies: back pain, neck pain, joint pain or muscle weakness Integumentary/Breast Denies: rash or new lesions Neurological Denies: headache(s), dizziness or confusion Endocrine Denies: fatigue or excessive sweating Hematologic/Lymphatic Denies: easy bruising or easy bleeding Allergic/Immunologic Denies: wheezing Exam Mental Status Exam - Psych Appearance casually d (more content not included)... Normal [facility] MR/ANA.BPon 11-02-2024 MR/ANA. [facility] [address] [place] [address], [address] [place] [address] OFFICE VISIT Date of Service: 11/02/24 MR#: [id number] Acct: [id number] Name: ANGELES KOEHLER Rep #: [id number] : 1960 Provider: Dr. Chuck Gonzalez se, DO Age/Sex: 63/F Location: [facility] Status: Signed Intake Vital Signs 05/17/24 10:03 08/11/24 11:04 11/02/24 10:21 Height 5 ft 6 in 56 ft 5 ft 6 in Weight: 152 lb 152 lb BMI 0.2 24.5 BP 115/66 147/73 H Blood Pressure Location Lt brachial Lt brachial Position Sitting Sitting Respiration 17 16 Pulse 62 57 L Pulse Source Monitor Monitor Temp 96.8 F L Pulse Oximetry (%) 95 Oxygen Delivery Method room air BP Intake Visit Reasons: 3 M FU Accompanied by: Self Allergies latex Allergy (Severe, Verified 11/02/24 10:24) Anaphylaxis Cephalosporins Allergy (Mild, Verified 11/02/24 10:24) rash gabapentin Allergy (Mild, Verified 11/02/24 10:24) Rash lamotrigine (From Lamictal) Allergy (Mild, Verified 11/02/24 10:24) rash Sulfa (Sulfonamide Antibiotics) Allergy (Mild, Verified 11/02/24 10:24) rash Penicillins Allergy (Verified 11/02/24 10:24) rash Medications ???Medication ???Instructions ???Recorded ???Confirmed ???Type ivermectin 1 % topical cream 1 applic topical DAILY #45 grams 06/10/23 11/02/24 Rx doxycycline hyclate 20 mg tablet 20 mg PO Q12H 02/14/24 11/02/24 History cholecalciferol (vitamin D3) 50 50 mcg PO DAILY 02/23/24 11/02/24 History mcg (2,000 unit) chewable tablet sumatriptan succinate 50 mg tablet 50 mg PO Q2H PRN migraine headache 02/23/24 11/02/24 Rx (Imitrex) #30 tabs epinephrine 0.3 mg/0.3 mL 0.3 ml IM Q5-15M PRN anaphylaxis 03/03/24 11/02/24 Rx injection, auto-injector #2 ea hydroxyzine HCl 50 mg tablet 25 mg (1/2 x 50 mg) PO TID PRN 03/08/24 11/02/24 Rx anxiety #90 tabs trazodone 100 mg tablet 200 mg (2 x 100 mg) PO DAILY 90 03/08/24 11/02/24 Rx days #180 tabs quetiapine 100 mg tablet (Seroquel) 100 mg PO QHS 90 days #90 tabs 07/27/24 11/02/24 Rx atorvastatin 20 mg tablet 20 mg PO DAILY #90 tabs 08/11/24 11/02/24 Rx levothyroxine 75 mcg tablet 75 mcg PO DAILY #90 tabs 08/11/24 11/02/24 Rx linaclotide 145 mcg capsule 145 mcg PO DAILY #90 caps 10/21/24 11/02/24 Rx (Linzess) escitalopram oxalate 20 mg tablet 20 mg PO DAILY #90 tabs 11/03/24 Rx PFSH Medical History Alcohol use Nicotine dependence Generalized anxiety disorder Bipolar 1 disorder, depressed, severe Acute conjunctivitis, right eye Acute maxillary sinusitis, unspecified Insomnia Bowel obstruction History of psychiatric care History of suicide attempt Migraine Osteopenia OCD (obsessive compulsive disorder) ADD (attention deficit disorder) IBS (irritable colon syndrome) Fibromyalgia PTSD (post-traumatic stress disorder) Carpal tunnel syndrome Breast lump Surgical History S/P laparoscopy with lysis of adhesions History of delivery Tubal ligation status History of surgical procedure Hx of LASIK Hx of tonsillectomy H/O sinus surgery H/O arthroplasty Previous back surgery H/O laparoscopy History of carpal tunnel release History of breast biopsy History of hernia repair H/O thyroidectomy Family History Father Alcoholism Cancer bladder Hypertension Mother Arthritis Osteoporosis Daughter Bipolar 1 disorder Social History (Updated 08/11/24 @ 11:[address] 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 Patient reports that she has been not the best. Reports that she is not happy with where she is at. Has been having some continued difficulty in quitting smoking. Has been spending significantly more time with her and he has been traveling back and forth with her. Has been back in [place] since September. Has been doing a lot of childcare with her daughter's children. They had an hydraulic engineer very briefly but she left after about a month. Will be getting a new hydraulic engineer in a few weeks. Has been wanting to go back to [place] but they can't because of having to do childcare. Currently planning a river cruise in May. Has been smoking 1 (more content not included)... [facility] ED NOTEon 09-02-2024 ED NOTE HNO ID: [id number] Author: NEHEMIAH SERRANO, CT Service: ? Author Type: Clinical Hospice Executive Director Type: ED Notes Filed: 09/02/2024 02:05 Note Text: Pt. Awaiting discharge papers, at bedside. [facility] ED NOTE HNO ID: [id number] Author: ELANA DELGADILLO RN Service: ? Author Type: Registered Nurse Type: ED Notes Filed: 09/02/2024 02:27 Note Text: Pt received written and verbal discharge instructions. Pt verbalizes understanding. All questions answered. Pt educated on medications and dosages. Pt verbalized understanding. Instructed pt to follow up with PCP or follow-up DR. No acute distress noted. Instructed to come back to Emergency Room if symptoms worsen. Pt verbalized understanding. All belongings with patient. Pt departed ED and escorted to sober ride Elana Delgadillo RN [facility] ED NOTE HNO ID: [id number] Author: NEHEMIAH SERRANO, CT Service: ? Author Type: Clinical Hospice Executive Director Type: ED Notes Filed: 09/02/2024 01:38 Note Text: Pt waiting for discharge papers, will call a uber to go home with . [facility] ED NOTE HNO ID: [id number] Author: ELANA DELGADILLO RN Service: ? Author Type: Registered Nurse Type: ED Notes Filed: 09/02/2024 01:01 Note Text: BS POC 99 [facility] ED NOTE HNO ID: [id number] Author: ELANA DELGADILLO RN Service: ? Author Type: Registered Nurse Type: ED Notes Filed: 09/02/2024 01:06 Note Text: Pt resting comfortably iEqual chest rise and fall noted with regular respirations. No acute distress noted. Safety maintained Elana Delgadillo RN [facility] ED NOTE HNO ID: [id number] Author: ELANA DELGADILLO RN Service: ? 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 Elana Delgadillo RN [facility] ED NOTE HNO ID: [id number] Author: ELANA DELGADILLO RN Service: ? Author Type: Registered Nurse Type: ED Notes Filed: 09/02/2024 00:33 Note Text: Patient BIB from [facility] intox- recorded 4 drinks. Elana Delgadillo RN [facility] ED PROV NOTEon 09-02-2024 ED PROV NOTE HNO ID: [id number] Author: SRAVANTHI ABLL PA-C Service: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 Monocytes/100 WBC (Bld) 8.7 % 0-10 [facility] Work Phone: Blood platelet mean volumeon 06-20-2022 Platelet mean volume (Bld) [Entitic vol] 10.5 fL 6.2-12.0 [facility] Work Phone: Determination of erythrocyte mean corpuscular volume (MCV)on 06-20-2022 MCV (RBC) [Entitic vol] 96.4 fL 81-99 [facility] Work Phone: Hematocrit Auto (Bld) [Volum e fraction]on 06-20-2022 Hematocrit (Bld) [Volume fraction] 39.6 % 37-47 [facility] Work Phone: Laboratory - Chemistry and C hemistry - challengeon 06-20-2022 ALP [Catalytic activity/Vol] 72 U/L 45-117 [facility] Work Phone: ALT [Catalytic activity/Vol] 21 U/L 13-56 [facility] Work Phone: CO2 [Moles/Vol] 30.0 mmol/L 21.0-32.0 [facility] Work Phone: Globulin (S) [Mass/Vol] 3.0 g/dL 2.2-4.2 [facility] Work Phone: Urea nitrogen/Creatinine [Mass ratio] 20.7 mg/mg 10-20 [facility] Work Phone: Laboratory - Hematology and Cell countson 06-20-2022 Erythrocyte distribution width (RBC) [Entitic vol] 45.4 fL 35.1-43.9 [facility] Work Phone: Erythrocyte distribution width (RBC) [Ratio] 12.8 % 11.6-14.6 [facility] Work Phone: Immature granulocytes/100 WBC (Bld) 0.300 % 0.0-0.9 [facility] Work Phone: Comment on above: IG% - Immature Granu locytes (promyelocytes, myelocytes and metamyelocytes) > 1% indicates that a LEFT SHIFT is Present. MCH (RBC) [Entitic mass] 31.6 pg 27.0-32.0 [facility] Work Phone: Nucleated RBC/100 WBC (Bld) [Ratio] 0 % 0-5 [facility] Work Phone: MCHC Auto (RBC) [Mass/Vol]on 06-20-2022 MCHC (RBC) [Mass/Vol] 32.8 g/dL 32-36 [facility] Work Phone: No Panel Informationon 06-20 Estimated GFR (MDRD) Amer 114 mL/min >60 [facility] Work Phone: Comment on above: GFR Calc Estimated GFR (MDRD) Non-Af Amer 94 mL/min >60 [facility] Work Phone: Comment on above: Non- GFR Calc Thyroid Stimulating Hormone (TSH) < 0.01 uIU/mL 0.358-3.74 [facility] Work Phone: Platelets bldon 06-20-2022 Platelets (Bld) [#/Vol] 179 10*3/uL 150-450 [facility] Work Phone: Serum or plasma albumin alexandra urement (mass/volume)on 06-20-2022 Albumin [Mass/Vol] 3.5 g/dL 3.2-5.0 [facility] Work Phone: Serum or plasma albumin/glob ulin mass ratioon 06-20-2022 Albumin/Globulin [Mass ratio] 1.2 {ratio} 0.9-2.4 [facility] Work Phone: Serum or plasma calcium alexandra urement (mass/volume)on 06-20-2022 Calcium [Mass/Vol] 8.8 mg/dL 8.5-10.1 [facility] Work Phone: Serum or plasma cholesterol in HDL measurement (mass/volume)on 06-20-2022 Cholesterol in HDL [Mass/Vol] 134 mg/dL >40 [facility] Work Phone: Comment on above: The drugs N-Acetylcy steine and Metamizole may falsely depress this assay. Reference Range HDL <40 mg/dL Low HDL Cholesterol HDL >or= 60 mg/dL High HDL Cholesterol Serum or plasma cholesterol in VLDL measurement (mass/volume)on 06-20-2022 Cholesterol in VLDL [Mass/Vol] 9 mg/dL 5-40 [facility] Work Phone: Serum or plasma creatinine m easurement (mass/volume)on 06-20-2022 Creatinine [Mass/Vol] 0.68 mg/dL 0.55-1.02 [facility] Work Phone: Comment on above: The validity of the calculated GFR & GFRAA in patients over 70 years has not been determined. Clinical correlation is essential. Serum or plasma low density lipoprotein (LDL) cholesterol measurement (mass/volume)on 06-20-2022 Cholesterol in LDL [Mass/Vol] 131 mg/dL 0-130 [facility] Work Phone: Serum or plasma urea nitroge n measurement (mass/volume)on 06-20-2022 Urea nitrogen [Mass/Vol] 14 mg/dL 7-18 [facility] Work Phone: Thin prep Papanicolaou smear with manual screeningon 06-20-2022 Thin prep Papanicolaou smear with manual screening 13 U/L 15-37 [facility] Work Phone: Thin prep Papanicolaou smear with manual screening 5 5-15 [facility] Work Phone: Laboratory - Microbiology an d Antimicrobial susceptibilityon 05-27-2022 SARS-CoV-2 (COVID-19) RNA GONZALO+probe Ql (Unsp spec) Not detected Not Detect [facility] Work Phone: Comment on above: Normal Reference Ran ge: Not DetectedMethod:(RT-PCR) real-time reverse transcriptase PCRLuminex DEBRA Instrument*The Food and Drug Administration (FDA) has issued an Emergency Use Authorization (EAU) for the DEBRA SARS-CoV-2 Assay for the rapid detection of the virus that causes COVID-19. This test has been validated, but the FDAs independent review of this validation is pending.*Negative results do not preclude infection and should not be used as the sole basis for treatment or patient management. Optimum specimen types and timing for peak viral levels during infections caused by SARS-CoV-2 have not been determined. Collection of multiple specimens from the same patient may be necessary to detect the virus. The possibility of a false negative result should be considered if the patient has clinical presentation or has had recent exposure. Vital Signs Date Time Vital Sign Value Performing Clinician Francine magana 04-26-2024 08:16-040 Body height 168.9 cm Caroline Meier MD Work Phone: [facility] 04-26-2024 08:16-0400 Body mass index (BMI) [Ratio] 23.4 kg/m2 Caroline Meier MD Work Phone: [facility] 04-26-2024 08:16-0400 Body weight 66.77 kg Caroline Meier MD Work Phone: [facility] 04-26-2024 08:16-0400 Diastolic blood pressure 60 mm[Hg] Caroline Meier MD Work Phone: [facility] 04-26-2024 08:16-0400 Systolic blood pressure 94 mm[Hg] Caroline Meier MD Work Phone: [facility] 05-27-2022 09:15-0400 Body height 167.[address] Johana León Work Phone: [facility] Work Phone: 05-27-2022 09:15-0400 Body mass index (BMI) [Ratio] 21.1 kg/m2 Dr. Johana León Work Phone: [facility] Work Phone: 05-27-2022 09:15-0400 Body temperature 99 [degF] Dr. Johana León Work Phone: [facility] Work Phone: 05-27-2022 09:15-0400 Body weight 59.[address] Johana León Work Phone: [facility] Work Phone: 05-27-2022 09:15-0400 Diastolic blood pressure 66 mm[Hg] Dr. Johana León Work Phone: [facility] Work Phone: 05-27-2022 09:15-0400 Heart rate 75 /min Dr. Johana León Work Phone: [facility] Work Phone: 05-27-2022 09:15-0400 Respiratory rate 14 /min Dr. Johana León Work Phone: [facility] Work Phone: 05-27-2022 09:15-0400 SaO2% (BldA) [Mass fraction] 97 % Dr. Johana León Work Phone: [facility] Work Phone: 05-27-2022 09:15-0400 Systolic blood pressure 108 mm[Hg] Dr. Johana León Work Phone: [facility] Work Phone: Encounters Encounter Date Encounter Type Care Provider Facility Start: 08-22-2025 End: 08-22-2025 ambulatory Johana León Facility:[facility] Start: 08-17-2025 End: 08-17-2025 ambulatory Chuck Link Facility:[facility] Start: 07-26-2025 End: 07-26-2025 ambulatory Benjamin Giles Facility:[facility] Start: 07-26-2025 End: 07-26-2025 ambulatory Satnam CHANDLER Facility:[facility] Start: 06-30-2025 End: 06-30-2025 ambulatory Ioana Ungerer Facility:[facility] Start: 06-30-2025 End: 06-30-2025 ambulatory Ioana Ungerer Facility:[facility] Start: 06-27-2025 ambulatory Satnam CHANDLER Facilit y:[facility] Start: 06-15-2025 End: 06-15-2025 ambulatory Satnam CHANDLER Facility:[facility] Start: 05-10-2025 End: 05-10-2025 ambulatory Chuck Link Facility:[facility] Start: 03-23-2025 End: 03-23-2025 ambulatory Johana Mau Facility:[facility] Start: 03-15-2025 End: 03-15-2025 ambulatory Johana Mau [facility] Start: 01-31-2025 End: 01-31-2025 ambulatory Johana Mau Facility:[facility] Start: 11-02-2024 End: 11-02-2024 ambulatory Johana Mau Facility:[facility] Start: 09-07-2024 ambulatory Johana [place] Facility :[facility] Start: 09-02-2024 End: 09-02-2024 Emergency department patient visit JOHANA LEÓN Facility:[facility] Start: 04-26-2024 End: 04-26-2024 ambulatory CAROLINE MEIER Facility:[facility] Start: 04-26-2024 End: 04-26-2024 Patient encounter procedure Caroline Meier MD Work Phone: OB/Gynecology Comment on above: Postmenopausal bleed ing (Primary Dx); Encounter for gynecological examination (general) (routine) without abnormal findings; Encounter for screening mammogram for breast cancer; Screening for cervical cancer; Special screening examination for human papillomavirus (HPV) Start: 04-26-2024 End: 04-26-2024 Patient encounter status Caroline Meier MD Work Phone: [facility] Work Phone: Start: 10-03-2022 End: 10-04-2022 Emergency department patient visit HAYDER FONG [facility] Start: 06-20-2022 End: 06-20-[address] Johana León Work Phone: [facility] Work Phone: Start: 06-20-2022 End: 06-20-[address] Johana León Work Phone: [facility]-Laboratory, [facility] Start: 06-02-2022 End: 06-02-[address] Johana León Work Phone: [facility]-Cat Scan, [facility] Start: 05-27-2022 End: 05-27-[address] Johana León Work Phone: [facility]-Laboratory, Specimen Start: 05-27-2022 End: 05-27-[address] Johana León Work Phone: [facility] Internal [facility] Procedures Date Procedure Procedure Detail Performing Clinician Start: 06-02-[address] Johana León Work Phone: Plan of Treatment Date Care Activity Detail Author Start: 09-21-2025 ambulatory Ambulatory Facility:[facility] Start: 06-12-2024 Influenza vaccination Influenza Vacc ine (#1) [facility] Start: 04-26-2024 End: 04-26-2025 US Pelvis PELVIC US [facility] Anc Imaging Routine Postmenopausal bleeding Expected: 04/26/2024, Expires: 04/26/2025 [facility] Comment on above: Expected: 04/26/2024 , Expires: 04/26/2025 Start: 10-12-2023 Behavioral Health Screening Behavioral Health Screening [facility] Start: 06-12-2023 Covid-19 Vaccine ( season) Covid-19 Vaccine ( season) [facility] Start: 05-27-2022 Patient referral [facility] Work Phone: Start: 2020 RSV Vaccine (1 - 1-d ose 60+ series) RSV Vaccine (1 - 1-dose 60+ series) [facility] Start: 2010 Shingrix Vaccine (1 of 2) Shingrix Vaccine (1 of 2) [facility] Start: 2005 Diabetes Screening Diabetes Screenin g [facility] Start: 2005 Lipid panel Lipid Screening [facility] Start: 2005 Screening for malign ant neoplasm of colon [facility] Start: 2000 Screening for malign ant neoplasm of breast Mammogram Screening [facility] Start: 1981 Screening for malign ant neoplasm of cervix Cervical Cancer Screening [facility] Start: 1979 Urine microalbumin profile DTaP,Tdap,Td Vaccine (1 - Tdap) [facility] Start: 1978 Hepatitis C screening Hepatitis C Sc reening [facility] Start: 1978 HIV screening HIV Screening [facility] CBC W Auto Different ial panel - Blood [facility] Work Phone: CT Chest [facility] Work Phone: End: 05-26-2025 DBT Breast - bilateral screening NATALIE SCREENING [facility] Routine Encounter for screening mammogram for breast cancer 1 Occurrences starting 04/26/2024 until 05/26/2025 [facility] Work Phone: Comment on above: 1 Occurrences starti ng 04/26/2024 until 05/26/2025 Lipid 1996 panel - Serum or Plasma [facility] Work Phone: PAP TEST PAP TEST Lab Faby villaseñor Encounter for gynecological examination (general) (routine) without abnormal findings Screening for cervical cancer Special screening examination for human papillomavirus (HPV) 04/26/2024 9:25 AM EDT [facility] Patient referral [facility] Work Phone: Thyroid stimulating hormone measurement [facility] Work Phone: Immunizations Immunization Date Immunization Notes Care Provider Kermit galeana 10-09-2023 influenza virus vacc ine, unspecified formulation Caroline Meier MD Work Phone: [facility] Payers Date Payer Category Payer Self-pay [id number] 2022 Unknown [id number] 2018 Medicare MEDICARE MEDICAR E A AND B [id number] 2018-Present [phone] [address] [address] [place] [address] Medicare [id number] 2018 Medicare [id number] Unknown [id number] Unknown [id number] Unknown [id number] Unknown [id number] Unknown [id number] Unknown [id number] Unknown [id number] Unknown [id number] Unknown [id number] Unknown [id number] Unknown [id number] Unknown [id number] Unknown [id number] Unknown [id number] Unknown [id number] Social History Date Type Detail Facility Start: 05-27-[address] [facility] Unknown if ever smoked [facility] Work Phone: Start: 1960 Sex Assigned At Female [facility] Work Phone: Start: 04-26-[address] [facility] Ex-smoker [facility] History of tobacco use Current smoker [facility] History of tobacco use Cigarette Smoker [facility] Start: 04-26-2024 Tobacco use and exposure Smokeless tobacco non-user [facility] Start: 04-26-2024 Alcohol intake Current drinke r of alcohol (finding) [facility] Start: 04-26-2024 History of Social function [facility] Start: 04-26-2024 Tobacco use panel [facility] National Score (1-100), lower number is lower risk 72 [facility] Start: 04-26-2024 Alcohol Comment glass of wine a nigh t [facility] Start: 1960 Sex Assigned At Not on file C [facility] Progress note 04-26-2024 Note Date & Type Note Facility 04-26-2024 Note HNO ID: [id number] Author: CAROLINE MEIER MD Service: ? 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 Angeles is a 63 year old No obstetric history on file. who presents for an annual gynecologic exam with an isolated episode of persistent brown vaginal discharge subsequent to intermittent compounded vaginal estrogen that she uses for intercourse comfort. Not sure of exact composition. Postmenopausal: Yes since age 51 HRT use: Yes, Vaginjal for 3 years. Last Pap: 2022 HPV: negative History of abnormal pap: Yes Last mammogram: 2022 hx of FBD History of abnormal mammogram: Yes Sexually active: Yes Time with current partner: 1983 Pain with intercourse: Yes Postcoital bleeding: No Hot flashes: No Vaginal dryness: Yes OB History No obstetric history on file. 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 History Comments: Sexual Activity: Yes; Male Contraception: No contraception data on record PAST MEDICAL HISTORY Diagnosis Date ADD (attention deficit disorder) Bipolar 2 disorder (HCC) DDD (degenerative disc disease), cervical Hypothyroidism Migraine OCD (obsessive compulsive disorder) Osteopenia PTSD (post-traumatic stress disorder) TBI (traumatic brain injury) (HCC) PAST SURGICAL HISTORY Procedure Laterality Date BREAST BIOPSY x2 CARPAL TUNNEL release x 2 DELIVERY ONLY x 2 PAST SURGICAL HISTORY OF 02/15/2024 hernia repair with intestinal blockage repair PAST SURGICAL HISTORY OF cervical spine arthroplasty, 2 artificial discs SINUS SURGERY HX THYROIDECTOMY TOTAL/COMPLETE 1982 not cancer FAMILY HISTORY Problem Relation Age of Onset other (blood cancer) Mother No Known Problems Father No Known Problems Sister No Known Problems Maternal Grandmother No Known Problems Maternal Grandfather No Known Problems Paternal Grandmother Heart Paternal Grandfather SOCIAL HISTORY Social History Tobacco Use Smoking status: Former Types: Cigarettes Smokeless tobacco: Never Vaping Use Vaping Use: Former Substance Use Topics Alcohol use: Yes Comment: glass of wine a night Drug use: Never REVIEW OF SYSTEMS Abdomen: No abdominal pain, nausea, vomiting, diarrhea, or constipation. No bloating, early satiety, indigestion, or increased flatulence. Bladder: No dysuria, gross hematuria, urinary frequency, urinary urgency, or incontinence Breast: No breast lumps, nipple d/c, overlying skin changes, redness or skin retraction Allergies and current medication updated:Yes EXAM: BP 94/60 Ht 5' 6.5 (1.69m) Wt 147 lb 3.2 oz (66.8kg) BMI 23.41 kg/(m2). GENERAL: pleasant, female in no apparent distress HEENT: Normocephalic, atraumatic, mucus membranes moist, and no lesions NECK: Supple, full range of motion, no adenopathy, and thyroid normal DERMATOLOGY: Normal, without lesions, non-icteric, and non-hirsute BREAST: soft, non-tender, symmetric, no dominant mass, normal nipple-areolar complex, no lymphadenopathy, and no nipple discharge CHEST: Normal inspiratory effort ABDOMEN: soft, non-tender, and no masses PELVIC: external genitalia normal, normal Bartholin's glands, urethra, [place]'s glands, no vulvar lesions, no cervical lesions, good vaginal support, physiologic discharge present, normal appearing perineal body and perianal region. Note scant egress of dark blood from nulliparous appearing os BIMANUAL: uterus normal size, shape and consistency, no adnexal masses, and non-tender RECTOVAGINAL: rectovaginal exam negative for any masses or nodularity. 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 Angeles is a 63 year old No obstetric history on file. who presents for an annual gynecologic exam with an isolated episode of persistent brown vaginal discharge subsequent to intermittent compounded vaginal estrogen that she uses for intercourse comfort. Not sure of exact composition. Postmenopausal: Yes since age 51 HRT use: Yes, Vaginjal for 3 years. Last Pap: 2022 HPV: negative History of abnormal pap: Yes Last mammogram: 2022 hx of FBD History of abnormal mammogram: Yes Sexually active: Yes Time with current partner: 1983 Pain with intercourse: Yes Postcoital bleeding: No Hot flashes: No Vaginal dryness: Yes OB History No obstetric history on file. 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 History Comments: Sexual Activity: Yes; Male Contraception: No contraception data on record PAST MEDICAL HISTORY Diagnosis Date ADD (attention deficit disorder) Bipolar 2 disorder (HCC) DDD (degenerative disc disease), cervical Hypothyroidism Migraine OCD (obsessive compulsive disorder) Osteopenia PTSD (post-traumatic stress disorder) TBI (traumatic brain injury) ([facility]) PAST SURGICAL HISTORY Procedure Laterality Date BREAST BIOPSY x2 CARPAL TUNNEL release x 2 DELIVERY ONLY x 2 PAST SURGICAL HISTORY OF 02/15/2024 hernia repair with intestinal blockage repair PAST SURGICAL HISTORY OF cervical spine arthroplasty, 2 artificial discs SINUS SURGERY HX THYROIDECTOMY TOTAL/COMPLETE 1982 not cancer FAMILY HISTORY Problem Relation Age of Onset other (blood cancer) Mother No Known Problems Father No Known Problems Sister No Known Problems Maternal Grandmother No Known Problems Maternal Grandfather No Known Problems Paternal Grandmother Heart Paternal Grandfather SOCIAL HISTORY Social History Tobacco Use Smoking status: Former Types: Cigarettes Smokeless tobacco: Never Vaping Use Vaping Use: Former Substance Use Topics Alcohol use: Yes Comment: glass of wine a night Drug use: Never REVIEW OF SYSTEMS Abdomen: No abdominal pain, nausea, vomiting, diarrhea, or constipation. No bloating, early satiety, indigestion, or increased flatulence. Bladder: No dysuria, gross hematuria, urinary frequency, urinary urgency, or incontinence Breast: No breast lumps, nipple d/c, overlying skin changes, redness or skin retraction Allergies and current medication updated:Yes EXAM: BP 94/60 Ht 5' 6.5 (1.69m) Wt 147 lb 3.2 oz (66.8kg) BMI 23.41 kg/(m^2). GENERAL: pleasant, female in no apparent distress HEENT: Normocephalic, atraumatic, mucus membranes moist, and no lesions NECK: Supple, full range of motion, no adenopathy, and thyroid normal DERMATOLOGY: Normal, without lesions, non-icteric, and non-hirsute BREAST: soft, non-tender, symmetric, no dominant mass, normal nipple-areolar complex, no lymphadenopathy, and no nipple discharge CHEST: Normal inspiratory effort ABDOMEN: soft, non-tender, and no masses PELVIC: external genitalia normal, normal Bartholin's glands, urethra, [place]'s glands, no vulvar lesions, no cervical lesions, good vaginal support, physiologic discharge present, normal appearing perineal body and perianal region. Note scant egress of dark blood from nulliparous appearing os BIMANUAL: uterus normal size, shape and consistency, no adnexal masses, and non-tender RECTOVAGINAL: rectovaginal exam negative for any masses or nodularity. NEURO: alert and oriented x3,exam grossly non-focal EXTREMITIES: normal ASSESSMENT/PLAN: 1) Health maintenance: Pap done with reflex HPV 2) Follow up one year or sooner as needed 3) PMB sono and plans for endometrial bx (likely due to ERT vaginal compound) MAMMO, pap/hpv/COLONOSCOPY Caroline Meier MD documented in this encounter [facility] Evaluation note Note Date & Type Note Facility Evaluation note Diagnosis Onset Date Bipolar 1 disorder acute IBS (irritable colon syndrome) acute Migraine acute Moderate anxiety acute Moderate major depression ac [place] Post-surgical hypothyroidism acute URI, acute noneactive Establishing care with roseanne byrd, encounter for noneactive Quit smoking noneactive [facility] Work Phone: Evaluation note Note Date & Type Note Facility Evaluation note Diagnosis Postmenopausal bleeding- Primary Encounter for gynecological examination (general) (routine) without abnormal findings Encounter for screening mammogram for breast cancer Screening for cervical cancer Screening for malignant neoplasm of the cervix Special screening examination for human papillomavirus (HPV) documented in this encounter [facility] Discharge instructions Note Date & Type Note Facility Hospital Discharge instructions [facility] Work Phone: Reason for referral (narrative) Diagnostic Procedure Only (Routine) - New Request Note Date & Type Note Facility Reason for referral (narrati ve) Specialty Diagnoses / Procedures Referred By Lianna red Referred To Contact [facility] Diagnoses Postmenopausal bleeding Procedures PELVIC US WHI US PELVIC NONOBSTETRIC REAL-TIME IMAGE COMPLETE Caroline Meier MD [address] [place] [address] [place] [address] Referral ID Status Reason Start Date Expiration Date Visits Requested Visits Authorized [id number] New Request Auto-Generat ed Referral 04/26/2024 04/26/2025 1 1 * Diagnostic Procedure Only (Routine) - New Request Specialty Diagnoses / Procedures Referred By Lianna red Referred To Contact [facility] Diagnoses Encounter for screening mammogram for breast cancer Procedures NATALIE SCREENING W [place] SCREENING DIGITAL BREAST TOMOSYNTHESIS BI SCREENING MAMMOGRAPHY BI 2-VIEW BREAST INC CAD Caroline Meier MD [address] [place] [address] [facility] [address] [place] [address] Referral ID Status Reason Start Date Expiration Date Visits Requested Visits Authorized [id number] New Request Auto-Generat ed Referral 04/26/2024 05/26/2025 1 1 [facility] Chief Complaint and Reason for Visit Chief Complaint 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 CARE, NEEDS PPW NICOTINE DEP Reason for Visit Bipolar 1 disorder IBS (irritable colon syndrome) Migraine Moderate anxiety Moderate major depression Post-surgical hypothyroidism URI, acute Establishing care with new doctor, encounter for Quit smoking Family History No Family History Records Found Relationship Condition Age at Onset Recorded Date/T jose f father Alcoholism Unknown Malignant neoplasm Unknown Hypertension Unknown mother Arthritis Unknown Osteoporosis Unknown daughter Bipolar I disorder Unknown Summary Purpose Advance Directives No Advanced Directives Records FoundNo Advanced Directives Records FoundNo Advanced Directives Records FoundNo Advanced Directives Records Found Additional Source Comments Goals (unrecognized section and content) Goals may be documented in a n alternate sectionGoals may be documented in an alternate section INFORMATION SOURCE (unrecogn ized section and content) DATE CREATED AUTHOR 10/05/2022 [facility] DATE CREATED AUTHOR AUTHOR'S ORGANIZ ATION 05/06/2024 [facility] DATE CREATED AUTHOR AUTHOR'S ORGANIZ ATION 09/05/2024 [facility] DATE CREATED AUTHOR AUTHOR'S ORGANIZ ATION 08/23/2025 [facility] Source Comments (unrecognize d section and content) In the event this informatio n is protected by the Federal Confidentiality of Alcohol and Drug Abuse Patient Records regulations: The Federal rules restrict any use of the information to criminally investigate or prosecute any alcohol or drug abuse patient.[facility] Reason for Visit (unrecogniz ed section and content) Reason Comments [facility] (unrecognized sec tion and content) Computer Technologist Relationship Specialty Start Date End Date Johana León MD [address] [place] [address] PCP - General Internal Medicine 04/12/24 FOR RECORDS PERTAINING TO PATIENTS WHO ARE OR HAVE BEEN ENROLLED IN A CHEMICAL DEPENDENCY/SUBSTANCEABUSE PROGRAM, SOME INFORMATION MAY BE OMITTED. This clinical summary was aggregated from multiple sources. Caution should be exercised in using it in the provision of clinical care. This summary normalizes information from multiple sources, and as a consequence, information in this document may materially change the coding, format and clinical context of patient data. In addition, data may be omitted in some cases. CLINICAL DECISIONS SHOULD BE BASED ON THE PRIMARY CLINICAL RECORDS. [employer] provides no warranty or guarantee of the accuracy or completeness of information in this document.
[2025-09-21] MEDS: Lactated Ringers 1,000 ML 15 ML IV (07:42)
--- NOTE | 2025-09-21 07:48 | PRE.ANES_ITS ---
ASA Classification* ASA Classification ASA Classification: 3 Assessment & Plan Anesthesia* Anesthesia Assessment Anesthesia Assessment: Discussed sedation and/or anesthesia options, risks, benefits, and alternatives with patient/parents/legal guardian/POA. Questions invited. The patient/parents/legal guardian/POA seems to understand and agrees to proceed with anesthesia plan. Reviewed the physical assessment, medical history, allergy history and patient home medications list prior to surgery/procedure/anesthetic and documented any changes. Performed airway and anesthesia risk assessments. Anesthesia Type Anesthesia Type: MAC History Source History Obtained from:: Patient and Chart Anesthesia Focused Assessment* Temperature: 97.4 F Pulse Rate: 70 Blood Pressure: 117/62 Respiratory Rate: 16 Pulse Ox: 96 Oxygen Delivery Method: Room Air Airway Assessment Mouth opens: >3 cm Mallampati Score: I Teeth Condition: Intact Neck Range of motion (ROM): Full ROM Labs Anesthesia Preop lab: CBC WBC, (4.4-11.0) 7.1 K/mm3 03/30/24, 20:04 RBC, (4.2-5.4) 4.30 M/mm3 03/30/24, 20:04 Hgb, (12.0-15.0) 13.2 g/dL 03/30/24, 20:04 Hct, (37-47) 40.8 % 03/30/24, 20:04 Plt Count, (150-450) 218 K/mm3 03/30/24, 20:04 CHEMISTRY Potassium, (3.5-5.1) 3.7 mmol/L 03/30/24, 20:04 Sodium, (136-145) 135 mmol/L L 03/30/24, 20:04 BUN, (7-18) 7 mg/dL 03/30/24, 20:04 Creatinine, (0.55-1.02) 0.64 mg/dL 03/30/24, 20:04 Glucose, (74-106) 89 mg/dL 03/30/24, 20:04 TSH, (0.358-3.740) 0.610 uIU/mL 08/11/24, 12:08 COAG Pre-Assessment Diagnosis/Proposed Procedure Planned Operative Procedure(s): COLONOSCOPY Anesthesia History 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 When Was Last Pacemaker Check QUESTION #4 FULL TEXT: You/Your Family Experience fever (hyperthermia) with Anesthesia Last Oral Intake Last Oral intake: Last Oral Intake NPO since 20:00 09/21/25 07:33 Meds taken in AM with sips of Yes 09/21/25 07:33 water? Meds patient instructed to see med list 09/21/25 07:33 take am of surgery PONV PONV - electronic plotting system operator: PONV - electronic plotting system operator Female Yes 09/19/25 13:53 HX of Motion Sickness No 09/19/25 13:53 HX of N/V After Surgery No 09/19/25 13:53 Non-Smoker Yes 09/19/25 13:53 Duration of Surgery greater No 09/19/25 13:53 than 60 minutes Number of Risk Factors 2 09/19/25 13:53 PONV Score Moderate Risk 09/19/25 13:53 Height & Weight Height & Weight: Anesthesia: Height & Weight Height 5 ft 6 in 09/21/25 07:33 Weight: 69 kg 09/21/25 07:33 Body Mass Index (BMI) 24.5 09/21/25 07:33 Respiratory Assessment Respiratory Assessment - electronic plotting system operator: Respiratory Tract Infection Hx - electronic plotting system operator Hx Respiratory Tract Infection No 09/19/25 13:53 STOP Sleep Apnea STOP Sleep Apnea - electronic plotting system operator: STOP Sleep Apnea - electronic plotting system operator Hx Hypertension No 09/19/25 13:53 Hx Sleep Apnea Yes 09/19/25 13:53 CPAP No: DOESNT USE IT 09/19/25 13:53 BIPAP No 09/19/25 13:53 Do you snore loudly (louder than talking or can be heard Do you often feel tired/ fatigued/ sleepy during daytime? Has anyone observed you stop breathing during sleep? STOP Results Positive 09/19/25 13:53 QUESTION #5 FULL TEXT : Do you snore loudly (louder than talking or can be heard through closed doors)? 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 Specify any problems Hx of Preganancy in last 3 No 09/19/25 13:53 Months Nurse Filling Out Transfusion [id number] 09/19/25 13:53 & Questions: Date: 09/19/25 09/19/25 13:53 Time: 13:55 09/19/25 13:53 Patient unable to answer at this time (ie. confused, unrespo /Reproduction History /Reproductive History - electronic plotting system operator: /Reproductive Hx- electronic plotting system operator Hx Now Gestational Age (in weeks): EDC: Hx Hx Para Hx Section SAB No 09/19/25 13:53 Does the father of the baby or his family experience fever w Father of the baby Malignant Hypertension history comment Active Medications Active Medications: Current Medications Generic Name Dose Route Start Last Admin Trade Name Freq PRN Reason Stop Dose Admin Lactated Ringer's 1,000 mls @ 15 mls/hr 09/21/25 07:30 09/21/25 07:42 IV 15 mls/hr .Q48H ZAC Administration PFSH Medical History Wears glasses Alcohol use Thyroid disease Smoker Shortness of breath on exertion Alcohol use Nicotine dependence Generalized anxiety disorder Bipolar 1 disorder, depressed, severe Acute conjunctivitis, right eye Acute maxillary sinusitis, unspecified Insomnia Bowel obstruction History of psychiatric care History of suicide attempt Migraine Osteopenia OCD (obsessive compulsive disorder) ADD (attention deficit disorder) IBS (irritable colon syndrome) Fibromyalgia PTSD (post-traumatic stress disorder) Carpal tunnel syndrome Breast lump Home Medications ?Medication ?Instructions ?Recorded ?Last Taken ?Type ivermectin 1 % topical cream 1 applic topical DAILY #4 5 grams 06/10/23 Unknown Rx doxycycline hyclate 20 mg tablet 20 mg PO Q12H 4 Unknown History cholecalciferol (vitamin D3) 50 50 mcg PO DAILY Unknown History mcg (2,000 unit) chewable tablet sumatriptan succinate 50 mg tablet 50 mg PO Q2H PRN mi graine headache 02/23/24 Unknown Rx (Imitrex) #30 tabs hydroxyzine HCl 25 mg tablet 25 mg PO TID PRN anxiety #90 tabs 01/31/25 09/21/25 06:30 Rx quetiapine 100 mg tablet (Seroquel) 100 mg PO QHS 90 d ays #90 tabs 05/10/25 Unknown Rx atorvastatin 20 mg tablet 20 mg PO DAILY #90 TABLETS 0 05/19/25 Unknown Rx epinephrine 0.3 mg/0.3 mL 0.3 ml IM Q5-15M PRN anaphyl axis 06/15/25 Unknown Rx injection, auto-injector #2 ea naproxen 250 mg tablet 500 mg PO QDAY PRN pain 02/03 Unknown History cyanocobalamin (vitamin B-12) 5,000 mcg PO QDAY Unknown History 5,000 mcg capsule escitalopram oxalate 20 mg tablet 20 mg PO DAILY #90 t abs 08/09/25 Unknown Rx ascorbic acid (vitamin C) 1,000 mg 1,000 mg PO QDAY Unknown History capsule levothyroxine 75 mcg tablet 75 mcg PO DAILY #90 tabs 1 10/22/24 Unknown Rx linaclotide 145 mcg capsule 145 mcg PO DAILY #90 caps 08/22/25 Unknown Rx (Linzess) trazodone 100 mg tablet 200 mg PO QHS 09/19/25 Unkno wn History Allergy/AdvReac Type Severity Reaction Status Date / Time latex Allergy Severe Anaphylaxis Verified 09/21/25 07:28 Cephalosporins Allergy Mild rash Verified 09/21/25 07:28 gabapentin Allergy Mild Rash Verified 09/21/25 07:28 lamotrigine (From Lamictal) Allergy Mild rash Verified 09/21/25 07:28 Sulfa (Sulfonamide Allergy Mild rash Verified 09/21/25 07:28 Antibiotics) Penicillins Allergy rash Verified 09/21/25 07:28 Family History Father Alcoholism Cancer bladder Hypertension Mother Arthritis Osteoporosis Cancer bone, leukemia and melanoma Daughter Bipolar 1 disorder Surgical History S/P laparoscopy with lysis of adhesions History of delivery Tubal ligation status History of surgical procedure Hx of LASIK Hx of tonsillectomy H/O sinus surgery H/O arthroplasty Previous back surgery H/O laparoscopy History of carpal tunnel release History of breast biopsy History of hernia repair H/O thyroidectomy Social History household members: other details: alone current occupational status: retired 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
--- NOTE | 2025-09-21 08:30 | COLBX_PTH ---
PATIENT: ANN MARIE HULL LOC: EN U#:[id number] AGE/SX: 64/F ROOM: RE09/21/[address]: Dr. Benjamin Giles MD : 1960 BED: DIS: 09/21/2025 SPEC #: [id number] RECD: 09/21/25 11:50 STATUS: STELLA KANDY #: [id number] GIO: 09/21/25 08:[address]: Benjamin Giles DEPT: SURGICAL PATHOLOGY RECD BY: Surendra Andrade ENTERED: 09/21/25 13:21 SP TYPE: COLON BX OTHR DR: Dr. Lesley León MD Tissues: A - Rectum, NOS B - Cecum, NOS C - Cecum, NOS Procedures: Surgery Specimen Level IV HEADER OPERATION: Colonoscopy, biopsy, electrohemostasis PRE-OP DIAGNOSIS: Change in bowel habits, hernia of abdominal wall, hiatal hernia TISSUE SUBMITTED: A- Rectal polyp biopsy, B- Cecal mucosal biopsy, C- Cecal polyp biopsy MICROSCOPIC DIAGNOSIS A. Rectum, polyp. biopsy: - Hyperplastic polyp, prolapse features. B. Colon, cecum, biopsy: - Sessile serrated lesion. C. Colon, cecum, polyp, biopsy: - Sessile serrated lesion, mucosal lymphoid aggregate. MICROSCOPIC DESCRIPTION Slides are reviewed. GROSS DESCRIPTION A. Received in fixative is one container labeled with the patient's name and designated Rectal polyp biopsy. The specimen consists of two irregular fragments of dugan tissue, each measuring 0.3 cm. The specimen is totally submitted in one cassette. B. Received in fixative is one container labeled with the patient's name and designated Cecal mucosa biopsy. The specimen consists of two irregular fragments of dugan tissue that measure 0.3 and 0.7 cm. The specimen is totally submitted in one cassette. C. Received in fixative is one container labeled with the patient's name and designated Cecal polyp biopsy. The specimen consists of one irregular fragment of dugan tissue that measures 0.8 cm. The specimen is totally submitted in one cassette. MT 09/21/2025 CPT:60126w3
--- NOTE | 2025-09-21 08:48 | PCM.HP.BLA ---
History and Physical Date of Admission: 09/21/25 Date of Service: 07/26/25 MR#: [id number] Acct: [id number] Name: ANN MARIE HULL Rep #: [id number] : 1960 Provider: Dr. Benjamin Giles MD Age/Sex: 64/F Location: [facility] Status: Signed Intake Vital Signs 06/30/2511:11 07/26/2510:25 Height 5 ft 6 in 5 ft 6 in Weight: 155 lb 4 oz 160 lb BMI 25.0 25.8 BP 96/60 121/73 H Blood Pressure Location Lt brachial Rt brachial Position Sitting Sitting Respiration 16 17 Pulse 77 70 Pulse Source Monitor Monitor Temp 97.7 F L Temp Source Temporal Pulse Oximetry (%) 96 97 Oxygen Delivery Method room air room air Intake Visit Reasons: HIATAL HERNIA/COLONOSCOPY Chief Complaint: possible hernia right upperquadrant,h/o hernia with blockage/c-scope/hiatal Is patient in pain?: No Allergies latex Allergy (Severe, Verified 07/26/25 10:27) Anaphylaxis Cephalosporins Allergy (Mild, Verified 07/26/25 10:27) rash gabapentin Allergy (Mild, Verified 07/26/25 10:27) Rash lamotrigine (From Lamictal) Allergy (Mild, Verified 07/26/25 10:27) rash Sulfa (Sulfonamide Antibiotics) Allergy (Mild, Verified 07/26/25 10:27) rash Penicillins Allergy (Verified 07/26/25 10:27) rash Medications ?Medication ?Instructions ?Recorded ?Confirmed ?Type ivermectin 1 % topical cream 1 applic topical DAILY #45 grams 06/10/23 07/26/25 Rx doxycycline hyclate 20 mg tablet 20 mg PO Q12H 02/14/24 07/26/25 History cholecalciferol (vitamin D3) 50 50 mcg PO DAILY 02/23/24 07/26/25 History mcg (2,000 unit) chewable tablet sumatriptan succinate 50 mg tablet 50 mg PO Q2H PRN migraine headache 02/23/24 07/26/25 Rx (Imitrex) #30 tabs escitalopram oxalate 20 mg tablet 20 mg PO DAILY #90 tabs 01/31/25 07/26/25 Rx hydroxyzine HCl 25 mg tablet 25 mg PO TID PRN anxiety #90 tabs 01/31/25 07/26/25 Rx quetiapine 100 mg tablet (Seroquel) 100 mg PO QHS 90 days #90 tabs 05/10/25 07/26/25 Rx trazodone 100 mg tablet 200 mg (2 x 100 mg) PO DAILY 90 05/10/25 07/26/25 Rx days #180 tabs atorvastatin 20 mg tablet 20 mg PO DAILY #90 TABLETS 05/19/25 07/26/25 Rx epinephrine 0.3 mg/0.3 mL 0.3 ml IM Q5-15M PRN anaphylaxis 06/15/25 07/26/25 Rx injection, auto-injector #2 ea naproxen 250 mg tablet 500 mg PO QDAY PRN 06/15/25 07/26/25 History levothyroxine 75 mcg tablet 75 mcg PO DAILY #90 tabs 06/26/25 07/26/25 Rx cyanocobalamin (vitamin B-12) 5,000 mcg PO QDAY 06/30/25 07/26/25 History 5,000 mcg capsule linaclotide 145 mcg capsule 145 mcg PO DAILY #90 caps 06/30/25 07/26/25 Rx (Linzess) PFSH Medical History Alcohol use Nicotine dependence Generalized anxiety disorder Bipolar 1 disorder, depressed, severe Acute conjunctivitis, right eye Acute maxillary sinusitis, unspecified Insomnia Bowel obstruction History of psychiatric care History of suicide attempt Migraine Osteopenia OCD (obsessive compulsive disorder) ADD (attention deficit disorder) IBS (irritable colon syndrome) Fibromyalgia PTSD (post-traumatic stress disorder) Carpal tunnel syndrome Breast lump Surgical History S/P laparoscopy with lysis of adhesions History of delivery Tubal ligation status History of surgical procedure Hx of LASIK Hx of tonsillectomy H/O sinus surgery H/O arthroplasty Previous back surgery H/O laparoscopy History of carpal tunnel release History of breast biopsy History of hernia repair H/O thyroidectomy Family History Father Alcoholism Cancer bladder Hypertension Mother Arthritis Osteoporosis Daughter Bipolar 1 disorder Social History (Updated 07/26/25 @ 10:25 by Deanna Doherty) household members: other details: alone current occupational status: retired 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 She is concerned about an abdominal wall hernia. She is accompanied by her . She is referred from Dr. León. Approximately 5?6 weeks ago, the patient experienced acute pain while tying her right shoe with her leg elevated. The pain was located in the mid-abdomen, within inches of a prior hernia repair site. Since then, she has had near-constant pain in the same area, with intermittent worsening that she associates with bowel activity. She also reports a bulging sensation in the same region. She describes significant changes in her bowel habits, including thin, squiggly, worm-like stools and intervals of 4?6 days without bowel movements. She has a longstanding history of IBS-C and has been taking Linzess 145 mcg daily for over 10 years. She previously used lubiprostone but found Linzess more effective. Despite this, she continues to feel constipated. She reports straining with every bowel movement, which typically takes 3?5 minutes. She denies hematochezia, melena, and hemorrhoids. She maintains a high water intake and consumes dietary fiber from fruits and vegetables, but does not use fiber supplements. She reports left-sided abdominal pain that can be severe enough to wake her at night, which is relieved by passing gas. She also experiences pain when overeating. She denies reflux or heartburn. Her surgical history includes umbilical hernia repair in childhood, 2 sections (1987 and 1991), laparoscopy for adhesiolysis, tubal ligation, and internal hernia repair in February [address] Shaffer. She reports a twisted bowel system noted during a colonoscopy 11 years ago in [place], which was otherwise unremarkable for polyps. Family history is significant for her father, who was diagnosed with bladder cancer at age 61 in 2004, later developing prostate, lung, and colon cancer, and currently has stable disease. Her mother has blood and bone cancer and melanoma. ROS General General: No weight change, appetite, fatigue, colon cancer, breast cancer or weakness HEENT HEENT: No difficulty swallowing, eye injury, eye surgery, swollen glands or hoarseness Endo Endocrine: Yes thyroid disease; No diabetes mellitus, thyroid cancer, Hair loss, heat intolerance or cold intolerance Skin Skin: Yes changing moles; No rash Musc Musculoskeletal: No back problems, arthritis, rheumatoid arthritis, gout or joint pain Cardio Cardiovascular: No murmur, pacemaker, heart disease, atrial fibrillation, high blood pressure, heart attack, heart stent, palpitations, shortness of breath with exertion or chest pain Psych Psychiatric: Yes depression and anxiety; No hearing voices Resp Respiratory: No shortness of breath, No sleep apnea, No cough, No COPD, No asthma, No emphysema and No wheezing Gastro Gastrointestinal: Yes abdominal pain, No nausea or vomiting, No diarrhea, Yes constipation, No blood in stool, No acid reflux, No hemorrhoids, No ulcers, No gallbladder problem and No black,tarry stools Zhegn Hematologic: No blood thinners, No blood disorders, No bleeding, No anemia and No blood clots Neuro Neurologic: No system reviewed and no additional complaints, except as documented, No as per HPI, No abnormal gait, No abnormal hearing, No abnormal movements, No abnormal speech, No behavioral changes, No burning sensations, No confusion, No convulsions, No disequilibrium, No dizziness, No localized weakness, No frequent falls, No headache(s), No lack of coordination, No loss of vision, No memory loss, No numbness, No other visual disturbances, No radicular pain, No restless legs, No sensory deficit, No syncope, No tingling, No tremor(s), No weakness and No other Exam Const General: cooperative and comfortable Orientation: alert, awake and oriented x3 Resp Effort & Inspection: normal respiratory effort GI Other: Nondistended, soft, tenderness to palpation in the left lateral mid abdomen and right lateral mid abdomen. I palpate what appears to be chronically incarcerated umbilical hernia that causes minimal tenderness. I do not palpate any hernia defects along the right abdominal wall. Assessment and Plan Assessment and Plan (1) Change in bowel habits: Status: Acute Comment: - Chronic IBS-C with recent worsening of symptoms, including increased straining, decreased frequency, and changes in stool caliber. - Currently taking Linzess 145 mcg daily. - No history of hemorrhoids; no dark or bloody stools. - Family history of colon cancer (father diagnosed at age 61). - Colonoscopy recommended to evaluate for underlying pathology; instructed to follow a 2-day bowel prep with early transition to clear liquids and limitation of fiber intake 96 hours prior to procedure. - Advised not to increase Linzess dose prior to colonoscopy. - Advised to avoid NSAIDs (including naproxen sodium) for 48 hours post-procedure to minimize bleeding risk. - Follow-up after colonoscopy to review findings and adjust management as needed. Plan: Plan will be to complete diagnostic colonoscopy on first mutually agreeable date under local MAC. Pre-procedure prep discussed and paper instructions provided. Patient is also made aware that she will need to have a local company intermodal truck driver with her the day of the procedure. (2) Hernia of abdominal wall: Status: Chronic Comment: - Small umbilical hernia containing only fatty tissue, likely related to prior umbilical hernia repair in childhood. - No evidence of bowel obstruction or incarceration on recent CT imaging. No evidence of right abdominal wall hernia either on exam or with in-depth review of CT imaging which was shared with patient and her . - Surgical intervention not recommended at this time due to minimal symptoms and low risk of complications. - Advised to monitor for increased tenderness or changes in the hernia; surgical repair may be considered if symptoms worsen. Plan: ? No surgical intervention recommended for subcentimeter recurrent umbilical hernia containing fat. This is likely chronic and is asymptomatic/stable across multiple CT imagings (3) Hiatal hernia: Status: Acute Comment: ? Likely incidental finding - Small sliding hiatal hernia noted on recent CT imaging. - No current symptoms of reflux or heartburn. - Upper endoscopy may be considered if symptoms develop. Plan: ? I find no indication to pursue EGD alongside colonoscopy (as being recommended above) I have examined the patient the following changes are noted: Patient shares that she has experienced some spontaneous improvement in her bowel habits that she is not seen the ribbonlike stools for approximately 3 weeks. She goes on to deny any observation of bloody or dark stools. She shares that she completed her prep without event and is largely seeing clear output but does acknowledge some minor sediment. Her abdominal exam is largely benign but she does describe a crampy sensation. Procedure expectations as well as any post procedure pathology reporting expectations were reviewed. Questions were answered from patient and her . Proceed to the endoscopy suite for colonoscopy as scheduled.
--- NOTE | 2025-09-21 10:06 | PCM.POST.ANE ---
Anesthesia: Postop Eval I Current Vital Signs Temperature: 96.8 F Pulse Rate: 58 Blood Pressure: 125/88 Respiratory Rate: 20 Pulse Ox: 95 Assessment Airway patent: Yes Spontaneous unlabored respirations: Yes nausea: No Vomiting: No Anesthesia Complication: No Fluid Hydration Crystalloid volume administer (ml): 800 Total IV fluid infused: 800 Progress Note Anesthesia document: Postop Eval 1 completed: Yes
--- NOTE | 2025-09-21 10:09 | OP.PROVAT_ITS ---
09/21/2025 Lesley León Md Re : Colonoscopy procedure for Angeles Koehler Dear Mau This procedure was performed on September. My impressions and recommendations are as follows: Impressions : - Two 2 to 4 mm, non-bleeding polyps in the rectum. Biopsied. - One 3 mm polyp in the cecum. Biopsied. - Nodular mucosa in the cecum. Biopsied. - The examination was otherwise normal on direct and retroflexion views. Recommendations : - Discharge patient to home (via wheelchair). - Resume regular diet today. - No aspirin, ibuprofen, naproxen, or other non-steroidal anti-inflammatory drugs for 2 days after biopsy. - Repeat colonoscopy date to be determined after pending pathology results are reviewed for surveillance based on pathology results. - Telephone my office for pathology results in 1 week. My findings are described in the full procedure note, which is enclosed. If I can be of further assistance, please feel free to contact me at Doctor phone number(s): , Work: . Sincerely, Benjamin Giles MD 09/21/2025 10:09:00 AM This report has been signed electronically.
--- NOTE | 2025-09-21 10:09 | OP.COLON_ITS ---
Patient Name: Angeles Koehler Procedure Date: 09/21/2025 8:42 AM Date of : 1960 Age: 64 Procedure: Colonoscopy Indications: Change in bowel habits, Change in stool caliber Providers: Benjamin Giles MD Referring MD: Lesley León Md Medicines: See the Anesthesia note for documentation of the administered medications Patient Profile: Last Colonoscopy: more than 10 years ago. Complications: No immediate complications. Estimated blood loss: Minimal. Procedure: Pre-Anesthesia Assessment: - The heart rate, respiratory rate, oxygen saturations, blood pressure, adequacy of pulmonary ventilation, and response to care were monitored throughout the procedure. After I obtained informed consent, the scope was passed under direct vision. Throughout the procedure, the patient's blood pressure, pulse, and oxygen saturations were monitored continuously. The colonoscope was introduced through the anus and advanced to the cecum, identified by the appendiceal orifice, ileocecal valve and palpation. The colonoscopy was somewhat difficult due to a redundant colon. Successful completion of the procedure was aided by changing the patient to a supine position, using manual pressure, withdrawing and reinserting the scope, straightening and shortening the scope to obtain bowel loop reduction and applying abdominal pressure. The patient tolerated the procedure fairly well. The quality of the bowel preparation was adequate to identify polyps greater than 5 mm in size. Scope In: 9:04:48 AM Scope Withdrawal Time 0 hours 30 minutes 54 seconds Scope Out: 9:59:06 AM Total Procedure Duration Time 0 hours 54 minutes 18 seconds Findings: The perianal and digital rectal examinations were normal. Two semi-sessile, non-bleeding polyps were found in the rectum. The polyps were 2 to 4 mm in size. These were biopsied with a cold forceps for histology. Estimated blood loss was minimal. A 3 mm polyp was found in the cecum. The polyp was semi-sessile. Biopsies were taken with a cold forceps for histology. Estimated blood loss was minimal. A localized area of mildly nodular mucosa was found in the cecum. Biopsies were taken with a cold forceps for histology. Estimated blood loss: 2 mL requiring treatment with coagulation. The exam was otherwise without abnormality on direct and retroflexion views. Impression: - Two 2 to 4 mm, non-bleeding polyps in the rectum. Biopsied. - One 3 mm polyp in the cecum. Biopsied. - Nodular mucosa in the cecum. Biopsied. - The examination was otherwise normal on direct and retroflexion views. Recommendation: - Discharge patient to home (via wheelchair). - Resume regular diet today. - No aspirin, ibuprofen, naproxen, or other non-steroidal anti-inflammatory drugs for 2 days after biopsy. - Repeat colonoscopy date to be determined after pending pathology results are reviewed for surveillance based on pathology results. - Telephone my office for pathology results in 1 week. Procedure Code(s): --- Professional --- 37661, Colonoscopy, flexible; with biopsy, single or multiple Diagnosis Code(s): --- Professional --- D12.8, Benign neoplasm of rectum D12.0, Benign neoplasm of cecum K63.89, Other specified diseases of intestine R19.4, Change in bowel habit R19.5, Other fecal abnormalities CPT copyright 2021 [employer]. All rights reserved. The codes documented in this report are preliminary and upon hooker laster review may be revised to meet current compliance requirements. Benjamin Giles MD 09/21/2025 10:09:00 AM This report has been signed electronically. Number of Addenda: 0 Note Initiated On: 09/21/2025 8:42 AM
--- NOTE | 2025-09-21 12:31 | POSTOPAN2_ITS ---
Anesthesia Postop Eval I Sum Postop Eval Completion status Anesthesia document: Postop Eval 1 completed: Yes Anesthesia Postop Eval I Summary Anesthesia Postop Eval I Summary: Anesthesia Postop Eval I: Assessment Summary Airway patent Yes 09/21/25 10:09 INSTRUCTOR [email or web address] Spontaneous unlabored Yes 09/21/25 10:09 INSTRUCTOR WEAVING.CSIR respirations Mental status nausea No 09/21/25 10:09 INSTRUCTOR WEAVING.CSIR Vomiting No 09/21/25 10:09 INSTRUCTOR WEAVING.CSIR Anesthesia Postop Eval I: Fluid Summary Crystalloid volume administer 800 09/21/25 10:09 INSTRUCTOR WEAVING.CSIR (ml) Colloids volume administered ( ml) Blood Product volume administered (ml) Total IV fluid infused 800 09/21/25 10:09 INSTRUCTOR WEAVING.CSIR Anesthesia Postop Eval I: Summary Notes Anesthesia Complication No 09/21/25 10:09 INSTRUCTOR WEAVING.CSIR Anesthesia Complication Comment: Post-operative progress note Anesthesia: Postop Eval II Evaluation Mental status: Awake Pain Level: 0 nausea: No Vomiting: No
--- NOTE | 2025-09-21 12:31 | PCM.POSTANE2 ---
Anesthesia Postop Eval I Sum Postop Eval Completion status Anesthesia document: Postop Eval 1 completed: Yes Anesthesia Postop Eval I Summary Anesthesia Postop Eval I Summary: Anesthesia Postop Eval I: Assessment Summary Airway patent Yes 09/21/25 10:09 SCIENTIFIC SOFTWARE [email or web address] Spontaneous unlabored Yes 09/21/25 10:09 SCIENTIFIC SOFTWARE ENGINEER.CSIR respirations Mental status nausea No 09/21/25 10:09 SCIENTIFIC SOFTWARE ENGINEER.CSIR Vomiting No 09/21/25 10:09 SCIENTIFIC SOFTWARE ENGINEER.CSIR Anesthesia Postop Eval I: Fluid Summary Crystalloid volume administer 800 09/21/25 10:09 SCIENTIFIC SOFTWARE ENGINEER.CSIR (ml) Colloids volume administered ( ml) Blood Product volume administered (ml) Total IV fluid infused 800 09/21/25 10:09 SCIENTIFIC SOFTWARE ENGINEER.CSIR Anesthesia Postop Eval I: Summary Notes Anesthesia Complication No 09/21/25 10:09 SCIENTIFIC SOFTWARE ENGINEER.CSIR Anesthesia Complication Comment: Post-operative progress note Anesthesia: Postop Eval II Evaluation Mental status: Awake Pain Level: 0 nausea: No Vomiting: No
== END 2025-09-21 11:04 | disposition home or self-care (01) ==
LOC: EN 07:16 → AC 07:18
PROVIDERS: PCP Internal Medicine; Referring Provider Internal Medicine; Visit Provider Surgery
PROC: 0DJD8ZZ Inspection of Lower Intestinal Tract, Via Natural or Artificial Opening Endoscopic (ICD-10-PCS; CPT 45378; principal; 2025-09-21 08:25)
DX: R19.4 Change in bowel habit (principal); F31.9 Bipolar disorder, unspecified; K58.1 Irritable bowel syndrome with constipation; F41.1 Generalized anxiety disorder; D12.0 Benign neoplasm of cecum; Z79.899 Other long term (current) drug therapy; G47.00 Insomnia, unspecified; F17.210 Nicotine dependence, cigarettes, uncomplicated; Z98.51 Tubal ligation status; Z80.0 Family history of malignant neoplasm of digestive organs; K43.9 Ventral hernia without obstruction or gangrene; K44.9 Diaphragmatic hernia without obstruction or gangrene; Q43.8 Other specified congenital malformations of intestine; K62.1 Rectal polyp; K63.89 Other specified diseases of intestine; R19.5 Other fecal abnormalities
CPT/HCPCS: 45380; 88305; C1889; J2405

== ENCOUNTER → 2025-09-25 | Outpatient (CLI) | payer MEDICARE, SELFPAY ==
--- NOTE | 2025-09-25 18:20 | CT_ITS ---
PROCEDURE: LOW DOSE CT LUNG SCREENING 09/25/2025 REASON FOR EXAM: SCREENING TECHNIQUE: Procedure Code: [id number] Modality: CT Procedure: LOW DOSE CT LUNG SCREENING Coronal and Sagittal reconstruction series were generated. One or more dose reduction techniques were used (e.g., Automated exposure control, adjustment of the mA and/or kV according to patient size, use of iterative reconstruction technique). RADIATION DOSE SUMMARY: CTDlvol: 2.39 mGy DLP: 86.38 mGycm COMPARISON: 06/02/2022 FINDINGS: Note that evaluation of the vasculature, suraj, and soft tissues is limited in the absence of IV contrast. Heart/pericardium:Mild/moderate but multivessel calcific coronary atherosclerosis and/or stents. Aorta: Trace atherosclerosis. Pulmonary arteries: Unremarkable. Lymph nodes: Unremarkable. Lungs/pleura: Minimal atelectasis/scarring. Similar 3 mm subpleural RIGHT apical micronodule (series 2, image 33). Similar 3 mm high-density and/or calcified possible granuloma superior segment RIGHT lower lobe (image 103). Few additional sub 4 for referring. Few additional sub 4 mm micronodules annotated on series 2 unchanged. Airways: Unremarkable. Chest wall: Unremarkable. Upper abdomen: Suboptimally evaluated by low-dose technique; grossly unremarkable. Musculoskeletal: Minimal degenerative findings. Partially imaged ACDF.. CT/Low Dose CT Lung Screening IMPRESSION: 1. Lung-RADS category: 2S (benign appearance or behavior, <1% chance of maligna ncy); continue annual screening with LDCT 2. Additional description as above. Recommendations per [employer]. Lung CT Screening Reporting and Data System (Lung-RADS) v. 2022 Reading Location: [id number]
== END | disposition home or self-care (01) ==
LOC: CT 18:18
PROVIDERS: PCP Internal Medicine; Referring Provider Internal Medicine; Visit Provider Internal Medicine
DX: F17.210 Nicotine dependence, cigarettes, uncomplicated (principal)
CPT/HCPCS: 71271